=== PATIENT | female | born 1960 | race Caucasian/White ===

== ENCOUNTER 2018-06-15 16:50 | Observation (INO) ==
[2018-06-15] MEDS ORDERED: Ipratropium/Albuterol Neb 3 ML IH ONE (17:09)
[2018-06-15] MEDS ORDERED: Albuterol 2.5 MG/3 ML NEBULIZER IH ONE (17:09)
--- NOTE | 2018-06-15 17:18 | Emergency Department Note ---
Disposition Clinical Impression: Hepatitis A Qualifiers: Hepatic coma status: without hepatic coma Qualified Code(s): B15.9 - Hepatitis A without hepatic coma Disposition: Admitted As Inpatient Condition: Good Referrals: Lexi Tan CNP [Primary Care Provider] - Forms: ED Satisfaction Letter Time of Disposition: 00:09 General Adult HPI - General Chief complaint: ED Shortness of Breath/Dyspnea Stated complaint: CP/SOB Time Seen by Provider: 06/15/18 16:56 Source: patient Mode of arrival: ambulatory Limitations: no limitations - History of Present Illness HPI Narrative: This is a 57-year-old obese female who comes to the emergency department reporting shortness of breath and dyspnea on exertion that has been present for 7 days. She reports a cough with posttussive emesis for this time as well. In addition, she reports epigastric pain is aggravated by food. She states she has had a greatly increased thirst these last 7 days, but denies frequent urination. She is diabetic as well as pills. Pain Scale: 4 - Related Data Home Medications Medication Instructions Recorded Confirmed Atenolol [Tenormin] 50 mg PO DAILY 10/27/17 06/15/18 Insulin Degludec [Tresiba 50 - 70 unit SQ HS 10/27/17 06/15/18 Flextouch U-100] Levothyroxine [Synthroid] 150 mcg PO DAILY 10/27/17 06/15/18 Lisinopril [Zestril] 40 mg PO DAILY 10/27/17 06/15/18 Metformin HCl [Metformin HCl ER] 1,000 mg PO DAILY 10/27/17 06/15/18 Mv-Mn/FA/Vit K/Lycop/Lut/Coq10 1 tab PO DAILY 10/27/17 06/15/18 [Daily Multivitamin Capsule] Omeprazole [PriLOSEC] 20 mg PO DAILY 10/27/17 06/15/18 Furosemide [Lasix] 40 mg PO DAILY PRN 06/15/18 06/15/18 Gabapentin [Neurontin] 300 mg PO TID 06/15/18 06/15/18 Potassium Chloride [K-Tab ER] 10 meq PO DAILY PRN 06/15/18 06/15/18 Allergies Allergy/AdvReac Type Severity Reaction Status Date / Time Amoxicillin Allergy Hives Verified 06/15/18 20:37 morphine Allergy Vomiting Verified 06/15/18 20:37 All systems ED: reviewed and negative except as stated. Cardiovascular: Reports: dyspnea on exertion Respiratory: Reports: dyspnea Gastrointestinal: Reports: abdominal pain, nausea, vomiting, other (Posttussive emesis) Past Medical History - Past Medical History Medical history: Reports: diabetes, GERD, hypertension, thyroid disease Surgical history: Reports: cholecystectomy, orthopedic, other, other Psychiatric history: Reports: no psych history - Social History Smoking Status: Never smoker Smokeless Tobacco Status: No Alcohol use: Reports: none Drug use: Reports: none Physical Exam - General Limitations: no limitations General appearance: alert, in distress (In mild distress shortness of breath) - Head Head exam: atraumatic, normocephalic, normal inspection - Eye Eye exam: Present: normal appearance, PERRL, EOMI - Chest Chest inspection: Present: normal inspection, symmetric chest wall rise - Respiratory Respiratory exam: Present: normal lung sounds bilaterally, respiratory distress (Mild restrictive distress). Absent: wheezes, stridor - Cardiovascular Cardiovascular exam: Present: regular rate, normal rhythm, normal heart sounds - Abdominal Exam Abdominal exam: Present: soft, tenderness Abdominal tenderness: Present: RUQ, epigastrium, mild. Absent: RLQ, LUQ, LLQ - Extremities Exam Extremities exam: Present: normal inspection, tenderness (Diffuse mild tenderness), pedal edema (Nonpitting bilateral pedal edema) - Neurological Exam Neurological exam: Present: alert, oriented X3, CN II-XII intact. Absent: motor sensory deficit - Psychiatric Psychiatric exam: Present: normal affect, normal mood - Skin Skin exam: Present: warm, dry, intact, normal color Course Course Narrative: This is a 57-year-old female with dyspnea on exertion and dyspnea at rest present for the last 7 days. She denies chronic lung disease, and this is concerning for acute coronary syndrome or pulmonary embolism. Vital Signs Temperature 98.1 F 06/15/18 16:51 Pulse Rate 61 06/15/18 16:51 Respiratory Rate 20 06/15/18 16:51 Blood Pressure 170/84 06/15/18 16:51 O2 Sat by Pulse Oximetry 95 06/15/18 16:51 Temperature 98.1 F 06/15/18 16:51 Pulse Rate 65 06/15/18 23:25 Respiratory Rate 16 06/15/18 23:25 Blood Pressure 167/80 06/15/18 23:25 O2 Sat by Pulse Oximetry 98 06/15/18 23:25 Oxygen Delivery Oxygen Delivery Nasal Cannula Medical Decision Making - MDM Narrative Medical decision making narrative: This is a 57-year-old female with hepatitis. I discussed her case with the on- call hospitalist, who accepted her for admission - Lab Data Lab results reviewed: Yes I reviewed the patient's lab results. Lab results narrative: CBC shows leukopenia at 3.8 BMP showed creatinine elevated at 1.5 to Lactic acid was elevated at 2.4 LFT showed total bilirubin elevated at 4.2, direct bilirubin elevated at 3.1, AST elevated at 744, ALT elevated at 500, alkaline phosphatase elevated at 759 Lactate was elevated at 2.7 D-dimer was elevated at 1735 Hepatitis A was positive Hepatitis C was negative I discussed her case with the hospitalist, who asked that the hepatic function panel be repeated, and repeat values were very similar to the initial ones listed above. Result diagrams: 06/15/18 17:19 06/15/18 17:19 Lab Results 06/15/18 06/15/18 06/15/18 Range/Units 17:19 17:19 17:19 WBC 3.8 L (4.3-11.1) K/mcL RBC 5.04 H (3.82-4.97) M/mcL Hgb 13.9 (11.5-15.4) g/dL Hct 43.6 (35.3-44.9) % MCV 86.5 (83.0-100.0) fL MCH 27.6 L (28.0-33.3) pg MCHC 31.9 (31.6-35.5) g/dL RDW 13.3 (11.5-14.5) % Plt Count 185 (140-400) K/mcL MPV 10.4 (9.4-12.4) fL Immature Gran % 1.1 (0-4) % Seg Neutrophils % 45.4 % Lymphocytes % 43.4 % Monocytes % 8.2 % Eosinophils % 1.1 % Basophils % 0.8 % Neutrophils # 1.7 (1.6-8.9) K/mcL Lymphocytes # 1.7 (0.6-4.6) K/mcL Monocytes # 0.3 (0.0-1.3) K/mcL Eosinophils # 0.0 (0.0-0.6) K/mcL Basophils # 0.0 (0.0-0.2) K/mcL Reactive Lymphocytes Present A (Not Present) Platelet Estimate Normal (Normal) D-Dimer 1735 H (0-500) ng/mLFEU Sodium 133 L (136-145) mEq/L Potassium 4.1 (3.5-5.1) mEq/L Chloride 98 (98-107) mEq/L Carbon Dioxide 22 L (23-29) mEq/L BUN 16 (6-20) mg/dL Creatinine 1.52 H (0.60-1.20) mg/dL Est GFR ( Amer) 43 L (> 60) Est GFR (Non-Af Amer) 35 L (> 60) BUN/Creatinine Ratio 11 (6-26) Glucose 406 H (70-105) mg/dL Calculated Osmolality 294 (280-300) Lactic Acid (0.5-2.2) mmol/L Calcium 6.9 L (8.6-10.3) mg/dL Total Bilirubin (0.3-1.0) mg/dL Direct Bilirubin (0.0-0.2) mg/dL Indirect Bilirubin (0.0-1.2) mg/dL AST (13-39) Units/L ALT (7-52) Units/L Alkaline Phosphatase (34-104) Units/L Troponin I < 0.03 (< 0.04) ng/mL Serum Total Protein (6.4-8.9) g/dL Albumin (3.5-5.7) g/dL Globulin (2.4-3.5) g/dL Albumin/Globulin Ratio (1.1-2.2) Lipase (11-82) Units/L Hepatitis A IgM Ab (Nonreactive) Hep Bs Antigen (Nonreactive) Hep B Core IgM Ab (Nonreactive) Hepatitis C Ab Screen (Nonreactive) 06/15/18 06/15/18 06/15/18 Range/Units 17:19 17:19 17:19 WBC (4.3-11.1) K/mcL RBC (3.82-4.97) M/mcL Hgb (11.5-15.4) g/dL Hct (35.3-44.9) % MCV (83.0-100.0) fL MCH (28.0-33.3) pg MCHC (31.6-35.5) g/dL RDW (11.5-14.5) % Plt Count (140-400) K/mcL MPV (9.4-12.4) fL Immature Gran % (0-4) % Seg Neutrophils % % Lymphocytes % % Monocytes % % Eosinophils % % Basophils % % Neutrophils # (1.6-8.9) K/mcL Lymphocytes # (0.6-4.6) K/mcL Monocytes # (0.0-1.3) K/mcL Eosinophils # (0.0-0.6) K/mcL Basophils # (0.0-0.2) K/mcL Reactive Lymphocytes (Not Present) Platelet Estimate (Normal) D-Dimer (0-500) ng/mLFEU Sodium (136-145) mEq/L Potassium (3.5-5.1) mEq/L Chloride (98-107) mEq/L Carbon Dioxide (23-29) mEq/L BUN (6-20) mg/dL Creatinine (0.60-1.20) mg/dL Est GFR ( Amer) (> 60) Est GFR (Non-Af Amer) (> 60) BUN/Creatinine Ratio (6-26) Glucose (70-105) mg/dL Calculated Osmolality (280-300) Lactic Acid 2.7 H (0.5-2.2) mmol/L Calcium (8.6-10.3) mg/dL Total Bilirubin 4.2 H (0.3-1.0) mg/dL Direct Bilirubin 3.1 H (0.0-0.2) mg/dL Indirect Bilirubin 1.1 (0.0-1.2) mg/dL AST 744 H (13-39) Units/L ALT > 500 H (7-52) Units/L Alkaline Phosphatase 759 H (34-104) Units/L Troponin I (< 0.04) ng/mL Serum Total Protein 6.9 (6.4-8.9) g/dL Albumin 3.4 L (3.5-5.7) g/dL Globulin 3.5 (2.4-3.5) g/dL Albumin/Globulin Ratio 1.0 L (1.1-2.2) Lipase 50 (11-82) Units/L Hepatitis A IgM Ab Reactive H (Nonreactive) Hep Bs Antigen Nonreactive (Nonreactive) Hep B Core IgM Ab Nonreactive (Nonreactive) Hepatitis C Ab Screen Nonreactive (Nonreactive) 06/15/18 06/15/18 06/15/18 Range/Units 19:07 22:15 22:15 WBC (4.3-11.1) K/mcL RBC (3.82-4.97) M/mcL Hgb (11.5-15.4) g/dL Hct (35.3-44.9) % MCV (83.0-100.0) fL MCH (28.0-33.3) pg MCHC (31.6-35.5) g/dL RDW (11.5-14.5) % Plt Count (140-400) K/mcL MPV (9.4-12.4) fL Immature Gran % (0-4) % Seg Neutrophils % % Lymphocytes % % Monocytes % % Eosinophils % % Basophils % % Neutrophils # (1.6-8.9) K/mcL Lymphocytes # (0.6-4.6) K/mcL Monocytes # (0.0-1.3) K/mcL Eosinophils # (0.0-0.6) K/mcL Basophils # (0.0-0.2) K/mcL Reactive Lymphocytes (Not Present) Platelet Estimate (Normal) D-Dimer (0-500) ng/mLFEU Sodium (136-145) mEq/L Potassium (3.5-5.1) mEq/L Chloride (98-107) mEq/L Carbon Dioxide (23-29) mEq/L BUN (6-20) mg/dL Creatinine (0.60-1.20) mg/dL Est GFR ( Amer) (> 60) Est GFR (Non-Af Amer) (> 60) BUN/Creatinine Ratio (6-26) Glucose (70-105) mg/dL Calculated Osmolality (280-300) Lactic Acid 2.4 H 1.8 (0.5-2.2) mmol/L Calcium (8.6-10.3) mg/dL Total Bilirubin 3.8 H (0.3-1.0) mg/dL Direct Bilirubin 2.7 H (0.0-0.2) mg/dL Indirect Bilirubin 1.1 (0.0-1.2) mg/dL AST 582 H (13-39) Units/L ALT > 500 H (7-52) Units/L Alkaline Phosphatase 637 H (34-104) Units/L Troponin I (< 0.04) ng/mL Serum Total Protein 5.8 L (6.4-8.9) g/dL Albumin 3.0 L (3.5-5.7) g/dL Globulin 2.8 (2.4-3.5) g/dL Albumin/Globulin Ratio 1.1 (1.1-2.2) Lipase (11-82) Units/L Hepatitis A IgM Ab (Nonreactive) Hep Bs Antigen (Nonreactive) Hep B Core IgM Ab (Nonreactive) Hepatitis C Ab Screen (Nonreactive) - Radiology Data Radiology results reviewed: Yes I reviewed the patient's radiology results. Chest x-ray showed no acute process CTPA shows no evidence of home and I embolism or acute pulmonary pathology. - EKG Data EKG #1 EKG attestation: Yes I reviewed and interpreted this EKG. EKG results narrative: ECG shows sinus rhythm, 58 bpm, left axis deviation, normal intervals, no ST or T-wave abnormalities, similar to prior dated 04/22/2017 Critical Care Time Critical Care Time: No
[2018-06-15 17:34] LABS: Basophils % 0.8 %; Eosinophils % 1.1 %; Hematocrit 43.6 % (35.3-44.9); Hemoglobin 13.9 g/dL (11.5-15.4); Immature Granulocytes % 1.1 % (0-4); Lymphocytes # 1.7 K/mcL (0.6-4.6); Lymphocytes % 43.4 %; Mean Corpuscular HGB Conc 31.9 g/dL (31.6-35.5); Mean Corpuscular Hemoglobin 27.6 pg (28.0-33.3); Mean Corpuscular Volume 86.5 fL (83.0-100.0); Mean Platelet Volume 10.4 fL (9.4-12.4); Monocytes # 0.3 K/mcL (0.0-1.3); Monocytes % 8.2 %; Neutrophils # 1.7 K/mcL (1.6-8.9); Platelet Count 185 K/mcL (140-400); Red Blood Count 5.04 M/mcL (3.82-4.97); Red Cell Distribution Width 13.3 % (11.5-14.5); Segmented Neutrophils % 45.4 %
[2018-06-15] MEDS ORDERED: Isovue-370 500 ML INFUS..BTL IV ONE (17:59)
[2018-06-15 18:02] LABS: Troponin I < 0.03 ng/mL (< 0.04)
[2018-06-15 18:04] LABS: Platelet Estimate Normal (Normal); Reactive Lymphocytes Present (Not Present)
[2018-06-15 18:09] LABS: Alanine Aminotransferase > 500 Units/L (7-52); Albumin 3.4 g/dL (3.5-5.7); Alkaline Phosphatase 759 Units/L (34-104); Aspartate Amino Transferase 744 Units/L (13-39); Bilirubin,Direct 3.1 mg/dL (0.0-0.2); Bilirubin,Indirect 1.1 mg/dL (0.0-1.2); Bilirubin,Total 4.2 mg/dL (0.3-1.0); Globulin 3.5 g/dL (2.4-3.5); Lipase 50 Units/L (11-82); Total Protein 6.9 g/dL (6.4-8.9)
[2018-06-15 18:12] LABS: BUN/Creatinine Ratio 11 (6-26); Blood Urea Nitrogen 16 mg/dL (6-20); Calcium 6.9 mg/dL (8.6-10.3); Carbon Dioxide 22 mEq/L (23-29); Chloride 98 mEq/L (98-107); Glucose 406 mg/dL (70-105); Osmolality,Calculated 294 (280-300); Potassium 4.1 mEq/L (3.5-5.1); Sodium 133 mEq/L (136-145); eGFR For Non-African Americans 35 (> 60)
[2018-06-15] MEDS ORDERED: 0.9 % Sodium Chloride 1,000 ML IVC ONE (18:27)
[2018-06-15] MEDS ORDERED: 0.9 % Sodium Chloride 1,000 ML IVC SCH (20:30)
[2018-06-15 21:43] LABS: Hepatitis B Core IgM Nonreactive (Nonreactive); Hepatitis B Surface Antigen Nonreactive (Nonreactive); Hepatitis C Virus Antibody Nonreactive (Nonreactive)
[2018-06-15 21:55] LABS: Hepatitis A Antibody IgM Reactive (Nonreactive)
[2018-06-15 23:07] LABS: Alanine Aminotransferase > 500 Units/L (7-52); Albumin/Globulin Ratio 1.1 (1.1-2.2); Alkaline Phosphatase 637 Units/L (34-104); Aspartate Amino Transferase 582 Units/L (13-39); Bilirubin,Direct 2.7 mg/dL (0.0-0.2); Bilirubin,Indirect 1.1 mg/dL (0.0-1.2); Bilirubin,Total 3.8 mg/dL (0.3-1.0); Globulin 2.8 g/dL (2.4-3.5); Total Protein 5.8 g/dL (6.4-8.9)
[2018-06-16] MEDS ORDERED: Ondansetron 4 MG/2 ML VIAL IVP PRN (00:26)
[2018-06-16] MEDS ORDERED: Naloxone 0.4 MG/ML INJ IVP PRN (00:26)
[2018-06-16] MEDS ORDERED: D5% in Water 1,000 ML IVC PRN (00:31)
[2018-06-16] MEDS ORDERED: *HR* Dextrose 50 % in Water (Syg) 50 ML SYRINGE IVP PRN (00:31)
[2018-06-16] MEDS ORDERED: Dextrose Gel 15 GM/37.5 ML TUBE PO PRN ×2 (00:31)
[2018-06-16] MEDS: Ringers Solution, Lactated 1,000 ML IVC SCH ×2 (02:28→10:44)
--- NOTE | 2018-06-16 02:33 | Internal Med History&Physical ---
<Kam Brumfield - Last Filed: 06/16/18 03:18> Date of Encounter: 06/16/18 Time of Encounter: 02:15 Internal Medicine - H&P: HPI Chief complaint: Shortness of breath, dyspnea on exertion Admitted From: Emergency Dept Plans for Post Hospital Care: Home History of present illness: Ms. Otero is a 57 year old female with history of diabetes, hypertension, fatty liver, cholecystectomy in 2006, thyroidectomy in 2011 presents to [facility] with complaint of abdominal pain, shortness of breath and a feeling of lightheadedness and presyncope for approximately 1 week duration. She says that for the past week she has been feeling short of breath, and has a feeling like she is going to pass out whenever she moves around. This is been associated with intense abdominal pain in the right upper quadrant and nausea and vomiting for about 1 week. This was insidious in onset, but she feels as though it is been getting worse. She says that overall she feels off balance, especially when she stands up. She has not lost consciousness, but she feels as though she may. It is associated as well with a blurriness in her vision, although she denies any spinning in the room. She says that one time she did have similar symptoms at which time she thought she had a stroke and was taken to [facility], however at that time she was told it was not a stroke but instead was "tonsils" in the back of her head. She says that in this past week she has had some issues with confusion as well, however it is intermittent in nature. She says that overall nothing seems to help this, however food does seem to make it worse. She has no appetite in general, however when she eats it makes her abdomen hurt worse and she typically has in increased urge to vomit. Additionally, she has had some feelings of fever, and some chills. She is not taking anything for this. She denies any chest pains, rashes, increased bleeding. She admits that her son was recently hospitalized approximately 3 weeks ago with acute hepatitis A, B, C. She has no other acute complaints. The patient denies alcohol use, mentioning that she did use to struggle with alcohol abuse but has not had any alcohol in 8 months. She denies smoking however does mention occasional use of marijuana. Denies IV drug use. Past Med Surg Social Fam HX - Past Medical History Medical history: diabetes, GERD, hypertension, thyroid disease Psychiatric history: no psych history - Past Surgical History Surgical History: cholecystectomy, orthopedic, other, other Additional surgical history: thyroidectomy - Social History Smoking Status: Never smoker Smokeless Tobacco Status: No Alcohol use: none Drug use: none Internal Medicine - H&P: Meds Atenolol [Tenormin] 50 mg PO DAILY 10/27/17 [History] Insulin Degludec [Tresiba Flextouch U-100] 50 - 70 unit SQ HS 10/27/17 [History] Levothyroxine [Synthroid] 150 mcg PO DAILY 10/27/17 [History] Lisinopril [Zestril] 40 mg PO DAILY 10/27/17 [History] Metformin HCl [Metformin HCl ER] 1,000 mg PO DAILY 10/27/17 [History] Mv-Mn/FA/Vit K/Lycop/Lut/Coq10 [Daily Multivitamin Capsule] 1 tab PO DAILY 10/27 [History] Omeprazole [PriLOSEC] 20 mg PO DAILY 10/27/17 [History] Furosemide [Lasix] 40 mg PO DAILY PRN 06/15/18 [History] Gabapentin [Neurontin] 300 mg PO TID 06/15/18 [History] Potassium Chloride [K-Tab ER] 10 meq PO DAILY PRN 06/15/18 [History] 3 Allergy/AdvReac Type Severity Reaction Status Date / Time Amoxicillin Allergy Hives Verified 06/15/18 20:37 morphine Allergy Vomiting Verified 06/15/18 20:37 All Systems PM: A 10-system review of systems was performed and is negative for pertinent findings except as documented above in the HPI. Review of systems: Constitutional: Denies fevers, chills, weight loss, generalized fatigue Head/Neck: Denies TOMPKINS, neck stiffness EENT: Admits to Visual changes/blurring. Denies rhinorrhea, congestion, sore throat CVS: Admits to NARAYAN. Denies chest pain, palpitations, orthopnea, edema, PND Pulm: Denies SOB, cough, sputum, hemoptysis, wheezing GI: Admits to abdominal pain in the RUQ, nausea and vomiting. : Denies dysuria, increased frequency, urgency, hematuria Heme: Denies ease of bleeding or bruising MSK: Denies joint pain, limited ROM Skin: Denies rashes, ulcers, color changes Neuro: Admits to headache, confusion, loss of balance - Constitutional Vitals: Temp Pulse Resp BP Pulse Ox 98.1 F 63 14 176/100 99 06/16/18 01:05 06/16/18 01:05 06/16/18 01:05 06/16/18 01:05 06/16/18 01:05 Exam: Gen: Vitals noted. No acute distress. HEENT: Normocephalic, atraumatic. No scleral icterus Neck: Supple. No adenopathy. Cardiac: RRR, no murmur, +S1/S2 Pulmonary: CTA bilaterally, no wheezes, rales or rhonchi, equal chest expansion Abdomen: soft, diffusely tender to palpation in the upper abdomen, most tender in the right upper quadrant, no guarding Back: Nontender throughout. MSK: ROM intact, no joint swelling noted Extremities: no BLE edema, bilaterally lower extremities are tender to palpation , no cyanosis or clubbing Neuro: moves all extremities, no focal deficits. A&Ox3 Psych: Appropriate mood and behavior Internal Med - H&P Results - Labs CBC & Chem 7: 06/15/18 17:19 06/15/18 17:19 - Assessment and plan (1) Hepatitis A Current Visit: Yes Status: Acute Assessment and plan: Acute hepatitis, positive viral hep A serology Patient presents with abdominal pain, nausea, vomiting On presentation, AST 744, AST greater than 500, alkaline phosphatase 759 Patient also has elevated total bilirubin 4.2, direct bilirubin 3.1 She has recent history of sun who has acute hepatitis A infection 3 weeks ago at home Suspect that her abdominal pain is secondary to this infection Liver ultrasound demonstrates diffuse fatty infiltration but is otherwise unremarkable I will check for ammonia, PT INR. IV fluids GI consult in the morning Continue to monitor Qualifiers: Hepatic coma status: without hepatic coma Qualified Code(s): B15.9 - Hepatitis A without hepatic coma (2) Pre-syncope Current Visit: Yes Status: Acute Assessment and plan: Presyncope per patient history The patient denies any chest pain, palpitations. EKG is essentially normal History is most consistent with hepatic encephalopathy She does report prior history of possible Chiari malformation however at [facility] She reports visual changes and confusion as well as loss of balance Given this history of neural abnormality on imaging, I will CT of the head Cardiac monitoring If ct is negative, consider echocardiogram and carotid dopplers (3) Encephalopathy Current Visit: Yes Status: Acute Assessment and plan: Encephalopathy, likely hepatic Patient reports confusion, loss of balance, visual changes This is likely secondary to acute hepatitis We will check a patient's ammonia level Stat head CT (4) Diabetes Current Visit: Yes Status: Acute Assessment and plan: Diabetes mellitus type 2 with hyperglycemia Appears to be poorly controlled despite long-term insulin use We will hold oral glycemic agents Sliding scale insulin Qualifiers: Diabetes mellitus type: type 2 Diabetes mellitus group home insulin use: with wood panel inspector use Diabetes mellitus complication status: with hyperglycemia Qualified Code(s): E11.65 - Type 2 diabetes mellitus with hyperglycemia; Z79.4 - prison (current) use of insulin (5) Hypertension Current Visit: Yes Status: Acute Assessment and plan: Hypertension, poorly controlled Hold lisinopril due to CESAR Add hydralazine prn Qualifiers: Hypertension type: essential hypertension Qualified Code(s): I10 - Essential (primary) hypertension (6) Hypothyroidism Current Visit: Yes Status: Acute Assessment and plan: Continue home meds Qualifiers: Hypothyroidism type: acquired Qualified Code(s): E03.9 - Hypothyroidism, unspecified (7) DVT prophylaxis Current Visit: Yes Status: Acute Assessment and plan: SQ Heparin (8) CESAR (acute kidney injury) Current Visit: Yes Status: Acute Assessment and plan: Acute kidney injury, serum creatinine 1.5 Likely secondary to decreased oral intake and this association with increased vomiting - Time Spent With Patient Total time spent is greater than 50% in coordination of care (as documented) at patient's floor/unit and/or counseling patient: <Wiliam Huitron - Last Filed: 06/16/18 06:54> Date of Encounter: 06/16/18 Time of Encounter: 05:15 - Constitutional Constitutional: no chills, no fever(s) - EENT Eyes: no change in vision Ears: no ear pain, no tinnitus Nose, mouth and throat: no sore throat - Cardiovascular Cardiovascular ROS IM: lightheadedness, no chest pain, no dyspnea, no palpitations, no paroxysmal nocturnal dyspnea, no syncope - Respiratory Respiratory: no hemoptysis, no chest congestion, no excessive phlegm production , no change in phlegm color - Gastrointestinal Gastrointestinal: abdominal pain, diarrhea, nausea, no hematemesis, no hematochezia, no melena, no vomiting - Genitourinary Genitourinary: no dysuria, no flank pain, no hematuria - Musculoskeletal Musculoskeletal ROS IM: no arthralgias, no back pain - Integumentary Integumentary IM: jaundice, no rash - Neurological Neurological ROS: no disequilibrium, no dizziness, no focal weakness, no frequent falls, no headache(s) - Psychiatric Psychiatric: no anxiety, no depression - Endocrine Endocrine IM: no polydipsia, no polyuria - Constitutional Vitals: Temp Pulse Resp BP Pulse Ox 98.5 F 56 15 157/81 97 06/16/18 06:35 06/16/18 06:35 06/16/18 06:35 06/16/18 06:35 06/16/18 06:35 General appearance: Present: cooperative, mild distress, A&O X 3, pleasant, answers questions appropriately - Head Head exam: Present: normal inspection - Eye Eye exam: Present: EOMI, PERRL, scleral icterus Pupils: Present: normal accommodation - ENT ENT exam: Present: mucous membranes dry, normal exam - Neck Neck exam general surgery: Present: supple - Respiratory Respiratory exam: Present: CTAB. Absent: chest wall tenderness, rales, rhonchi , wheezes - Cardiovascular Cardiovascular exam: Present: RRR, +S1, +S2 - GI/Abdominal GI/Abdominal exam: Present: normal bowel sounds, tenderness (RUQ). Absent: guarding, mass, rebound - Back Exam Back exam: Absent: CVA tenderness (L), CVA tenderness (R) - Neurological Exam Neurological exam: Present: alert, CN II-XII intact, oriented X3, no focal deficits Internal Med - H&P Results - Labs CBC & Chem 7: 06/16/18 05:44 06/16/18 05:44 Labs: Short CBC 06/16/18 Range/Units 05:44 WBC 3.5 L (4.3-11.1) K/mcL Hgb 12.0 D (11.5-15.4) g/dL Hct 36.6 (35.3-44.9) % Plt Count 158 (140-400) K/mcL Neutrophils # 1.6 (1.6-8.9) K/mcL BMP 06/16/18 05:44 Sodium 136 Potassium 3.5 Chloride 102 Carbon Dioxide 24 BUN 13 Creatinine 1.18 Glucose 237 H Calcium 6.2 L Liver Function 06/16/18 Range/Units 05:44 GGT 276 H (1-24) Units/L - Impressions ITS Impressions Head CT 06/16/18 03:18 IMPRESSION: No acute intracranial abnormality. D/ / Brent Obregon / Brent Obregon Interpreting Provider: Brent Obregon - Assessment and plan (1) Hepatitis A Current Visit: Yes Status: Acute Qualifiers: Hepatic coma status: without hepatic coma Qualified Code(s): B15.9 - Hepatitis A without hepatic coma (2) Hypertension Current Visit: Yes Status: Acute Qualifiers: Hypertension type: essential hypertension Qualified Code(s): I10 - Essential (primary) hypertension (3) Diabetes Current Visit: Yes Status: Acute Qualifiers: Diabetes mellitus type: type 2 Diabetes mellitus wood panel inspector insulin use: with group home use Diabetes mellitus complication status: with hyperglycemia Qualified Code(s): E11.65 - Type 2 diabetes mellitus with hyperglycemia; Z79.4 - resolution manager (current) use of insulin (4) Hypothyroidism Current Visit: Yes Status: Acute Qualifiers: Hypothyroidism type: acquired Qualified Code(s): E03.9 - Hypothyroidism, unspecified (5) DVT prophylaxis Current Visit: Yes Status: Acute (6) Pre-syncope Current Visit: Yes Status: Acute (7) Encephalopathy Current Visit: Yes Status: Acute (8) CESAR (acute kidney injury) Current Visit: Yes Status: Acute - Time Spent With Patient Total time spent is greater than 50% in coordination of care (as documented) at patient's floor/unit and/or counseling patient: - Attending Attestation I discussed the patient RINCON, past medical history, review of systems, lab data , and exam findings with Dr. Brumfield. I then saw and examined patient independently. She confirms exposure to her son who was recently diagnosed with hepatitis A, B, and C. He was also was recently hospitalized for hepatitis. He now presents with a several day history of abdominal pain, jaundice skin, and some nausea and diarrhea. She denies any fevers or chills. Appetite and fluid intake have diminished. She does have a history of alcohol abuse in the past but she has not had any alcohol intake in over 8 months. I reviewed her labs and examined her. Clinically, she presented with acute hepatitis, most likely from hepatitis A. We will proceed with conservative measures and monitor clinically. Additionally, we will consult GI for further evaluation as well. Regarding her presyncopal symptoms, I agree with the CAT scan of the head. If it is negative, she will need further workup including echo and carotid Dopplers. Other than my comments above and noted physical exam findings, I agree with Dr. Brumfield's assessment and plan.
[2018-06-16 06:03] LABS: Basophils % 0.9 %; Eosinophils # 0.1 K/mcL (0.0-0.6); Eosinophils % 1.4 %; Hematocrit 36.6 % (35.3-44.9); Immature Granulocytes % 0.6 % (0-4); Lymphocytes # 1.5 K/mcL (0.6-4.6); Lymphocytes % 43.1 %; Mean Corpuscular HGB Conc 32.8 g/dL (31.6-35.5); Mean Corpuscular Hemoglobin 27.8 pg (28.0-33.3); Mean Corpuscular Volume 84.7 fL (83.0-100.0); Mean Platelet Volume 10.2 fL (9.4-12.4); Monocytes # 0.3 K/mcL (0.0-1.3); Monocytes % 8.3 %; Neutrophils # 1.6 K/mcL (1.6-8.9); Platelet Count 158 K/mcL (140-400); Red Blood Count 4.32 M/mcL (3.82-4.97); Red Cell Distribution Width 13.5 % (11.5-14.5); Segmented Neutrophils % 45.7 %
[2018-06-16 06:19] LABS: INR 1.2
[2018-06-16 06:22] LABS: BUN/Creatinine Ratio 11 (6-26); Blood Urea Nitrogen 13 mg/dL (6-20); Calcium 6.2 mg/dL (8.6-10.3); Carbon Dioxide 24 mEq/L (23-29); Chloride 102 mEq/L (98-107); Gamma Glutamyl Transpeptidase 276 Units/L (1-24); Glucose 237 mg/dL (70-105); Magnesium 1.2 mg/dL (1.6-2.6); Osmolality,Calculated 290 (280-300); Potassium 3.5 mEq/L (3.5-5.1); Sodium 136 mEq/L (136-145); eGFR For Non-African Americans 47 (> 60)
[2018-06-16 06:33] LABS: Reactive Lymphocytes Present (Not Present)
[2018-06-16] MEDS: Insulin LISPRO 300 UNITS/3 ML VIAL SQ SCH ×3 (06:51→18:33)
[2018-06-16] MEDS: *HR* Heparin 5,000 UNIT/ML VIAL SQ SCH ×3 (06:52→22:10)
[2018-06-16 07:13] LABS: Alanine Aminotransferase > 500 Units/L (7-52); Albumin 2.9 g/dL (3.5-5.7); Albumin/Globulin Ratio 1.1 (1.1-2.2); Alkaline Phosphatase 594 Units/L (34-104); Aspartate Amino Transferase 493 Units/L (13-39); Bilirubin,Direct 2.9 mg/dL (0.0-0.2); Bilirubin,Total 3.9 mg/dL (0.3-1.0); Globulin 2.6 g/dL (2.4-3.5); Total Protein 5.5 g/dL (6.4-8.9)
[2018-06-16 07:35] LABS: Acetaminophen < 10 mcg/mL (10-20); Salicylate < 2.5 mg/dL (15.0-30.0)
[2018-06-16] MEDS: Gabapentin 300 MG CAPSULE PO SCH ×3 (10:44→22:11)
[2018-06-16] MEDS: Lactulose Oral Soln 20 GM/30 ML UDC PO SCH ×3 (10:44→22:14)
--- NOTE | 2018-06-16 11:21 | Gastroenterology Consult Note ---
<Mady Marroquin - Last Filed: 06/16/18 17:40> Date of Encounter: 06/16/18 Time of Encounter: 11:19 - Assessment and plan (1) Hepatitis A Status: Acute Assessment and plan: Patient has acute hepatitis A infection likely contracted from her son whom was just diagnosed 3 weeks ago with hepatitis A, B, C infection. She reported nausea, vomiting, weakness, fatigue, lightheadedness, pruritus, skin discoloration, right upper quadrant pain. Denied fever, chills, scleral icterus, jaundice. Hepatitis A positive PT 13, INR 1.2 total bilirubin 3.9, direct bilirubin 2.9 AST 493, ALT >500 alkaline phosphatase 594 albumin 2.9 liver ultrasound demonstrated fatty liver Plan: supportive treatment. Patient is improved from admission however still has dizziness. Tolerating PO intake well. Will reevaluate tomorrow. May possible discharge tomorrow if labs and symptoms improve. Qualifiers: Hepatic coma status: without hepatic coma Qualified Code(s): B15.9 - Hepatitis A without hepatic coma (2) Encephalopathy Status: Acute Assessment and plan: Resolved. The patient reported that she been having dizziness. Ammonia 53. May be due to dehydration and decreased oral intake since feeling unwell. -Will continue to monitor - Time Spent With Patient Total time spent is greater than 50% in coordination of care (as documented) at patient's floor/unit and/or counseling patient: GI History of Present Illness - Data of Consult Consult date: 06/16/18 Requesting Physician: Christina Miller MD - Consult Narrative Reason for consult: Acute hepatitis A History of present illness: Ms. Otero is a 57 year old female with past medical history of hypertension, Gerd, diabetes, fatty liver who presented to [facility] com plaining of abdominal pain and feeling lightheaded. Gastroenterology was consulted due to acute hepatitis A infection. Upon examination the patient reported that for about a week and a half she has been feeling lightheaded, week, dizzy. She also noted right upper quadrant pain that has been chronic for her for about a year but worsened over this week and half. She seduces sharp pain. She has had decreased appetite with nausea and vomiting. She has had puritis with change in skin color, but no jaundice or scleral icterus. Denied fever, chills, melena, hematemesis, hematachezia. She reported that her son was recently diagnosed in the hospital for acute hepatitis A, B, C. She has never had this before. She denies IV drug use however has used marijuana in the past. She is a former alcoholic but has not drink alcohol since 8 months ago. She is to drink 6 to 12 beers a day for about 40 years. Denied smoking history. She had an EGD and 03/04/2018 that showed Redyd's esophagus with a large hiatal hernia. EGD: 03/04/2018 Past Med Surg Social Fam HX - Past Medical History Attestation: Yes The following information was validated with the patient. Source: patient Medical history: diabetes, GERD, hypertension, thyroid disease Psychiatric history: no psych history - Past Surgical History Surgical History: cholecystectomy, orthopedic, other, other Additional surgical history: thyroidectomy - Social History Smoking Status: Never smoker Smokeless Tobacco Status: No Alcohol use: none (Former heavy drinker of 6 to 12 beers a day for 40 years) Drug use: none - Gastrointestinal Gastrointestinal: Present: abdominal pain, heartburn. Absent: diarrhea, hematemesis, hematochezia, melena, nausea, vomiting - Constitutional Constitutional: anorexia, fatigue, no fever(s) - EENT Nose, mouth and throat: Absent: dysphagia, sore throat - Cardiovascular Cardiovascular ROS: Absent: chest pain, palpitations - Respiratory Respiratory IM: Present: dyspnea. Absent: cough - Genitourinary Genitourinary: Present: change in color (dark urine). Absent: Urinary frequency - Neurological ROS Neurological GI: Present: dizziness, weakness. Absent: frequent falls, headache(s) - Musculoskeletal Musculoskeletal ROS GI: Absent: joint swelling - Integumentary Integumentary GI: Present: pruritis. Absent: jaundice, rash - Psychiatric ROS Psychiatric GI: Absent: anxiety - Endocrine Endocrine IM: Present: fatigue. Absent: heat intolerance - Constitutional Vitals: Temp Pulse Resp BP Pulse Ox 97.9 F 64 14 153/95 95 06/16/18 10:05 06/16/18 10:05 06/16/18 10:05 06/16/18 10:05 06/16/18 10:05 Exam: Gen.: Vitals noted. No acute distress. AAOx3 HEENT: oropharynx clear, Normocephalic, atraumatic, no scleral icterus Neck: Supple. No adenopathy. Cardiac: RRR, no murmur, +S1/S2 Pulmonary: CTA bilaterally, no wheezes, rales or rhonchi, equal chest expansion Abdomen: soft, nontender, Bowel sounds noted, no guarding, no jaundice MSK: ROM intact, no joint swelling noted Extremities: + BLE edema, bilateral tender calf, no cyanosis or clubbing Neuro: A&Ox3, moves all extremities, no focal deficits Psych: Appropriate mood and behavior Results - Labs CBC & Chem 7: 06/16/18 05:44 06/16/18 05:44 Labs: Last Result Calcium 6.2 mg/dL (8.6-10.3) L 06/16/18 05:44 Troponin I < 0.03 ng/mL (< 0.04) 06/15/18 17:19 Salicylates < 2.5 mg/dL (15.0-30.0) L 06/15/18 17:19 Entire Visit Hgb 12.0 g/dL (11.5-15.4) D 06/16/18 05:44 Hct 36.6 % (35.3-44.9) 06/16/18 05:44 PT 13.0 Seconds (9.4-12.1) H 06/16/18 05:44 Total Bilirubin 3.9 mg/dL (0.3-1.0) H 06/16/18 05:44 AST 493 Units/L (13-39) H 06/16/18 05:44 ALT > 500 Units/L (7-52) H 06/16/18 05:44 Ammonia 53 mcmol/L (16-53) 06/16/18 05:44 Lipase 50 Units/L (11-82) 06/15/18 17:19 Acetaminophen < 10 mcg/mL (10-20) L 06/15/18 17:19 - ABG ABG results: PT/INR, D-dimer PT 13.0 Seconds (9.4-12.1) H 06/16/18 05:44 D-Dimer 1735 ng/mLFEU (0-500) H 06/15/18 17:19 - Impressions Impressions Head CT 06/16/18 03:18 IMPRESSION: No acute intracranial abnormality. D/ / Brent Obregon / Brent Obregon Interpreting Provider: Brent Obregon Consult Discharge Plan - Plan Referrals: Keisha Silva APN [Advanced Practice Nurse] - 07/01/18 9:40 am Katie Molina MD [Partnered Physician] - (Web request sent on 06/18.) Prescriptions: Alcohol Antiseptic Pads [Alcohol Pads] 1 each TP QIDAC 30 Days #120 med..pad RX: Aspirin 81 mg PO DAILY #30 tab.chew Blood-Glucose Meter, Drum-Type [Accu-Chek] 1 each MC TIDAC #1 kit Calcium Carbonate/Vitamin D3 [Calcium 500 + Vit D Caplet] 1 each PO BID 30 Days #60 tablet Insulin Regular, Human [Novolin R] 0 unit IJ TIDAC 30 Days #10 ml Syrge-Ndl,Ins 0.3 ml Half Dago [Insulin Syringe] 1 each MC TIDAC 30 Days #90 disp.syrin <John Lynch - Last Filed: 06/28/18 22:15> - Time Spent With Patient Total time spent is greater than 50% in coordination of care (as documented) at patient's floor/unit and/or counseling patient: GI History of Present Illness - Data of Consult Requesting Physician: Christina Miller MD - Consult Narrative History of present illness: Ms. Otero is a 57 year old female - Constitutional Vitals: Temp Pulse Resp BP Pulse Ox 98.3 F 54 16 149/81 96 06/18/18 16:04 06/18/18 16:04 06/18/18 16:04 06/18/18 16:04 06/18/18 16:04 Results - Labs CBC & Chem 7: 06/17/18 07:17 06/17/18 07:17 Labs: Last Result Calcium 6.3 mg/dL (8.6-10.3) L 06/18/18 05:39 Troponin I < 0.03 ng/mL (< 0.04) 06/15/18 17:19 Triglycerides 194 mg/dL (< 150) H 06/16/18 11:45 Vitamin B12 > 1500 pg/mL (250-1100) H 06/17/18 07:17 Salicylates < 2.5 mg/dL (15.0-30.0) L 06/15/18 17:19 Entire Visit Hgb 11.5 g/dL (11.5-15.4) 06/17/18 07:17 Hct 36.2 % (35.3-44.9) 06/17/18 07:17 PT 12.0 Seconds (9.4-12.1) 06/18/18 05:39 Total Bilirubin 3.8 mg/dL (0.3-1.0) H 06/18/18 05:39 AST 282 Units/L (13-39) H 06/18/18 05:39 ALT 407 Units/L (7-52) H 06/18/18 05:39 Ammonia 53 mcmol/L (16-53) 06/16/18 05:44 Lipase 50 Units/L (11-82) 06/15/18 17:19 Acetaminophen < 10 mcg/mL (10-20) L 06/15/18 17:19 - ABG ABG results: PT/INR, D-dimer PT 12.0 Seconds (9.4-12.1) 06/18/18 05:39 D-Dimer 1735 ng/mLFEU (0-500) H 06/15/18 17:19 - Attending Attestation Acute hepatitis A uncomplicated. Family contact with same. Plan supportive therapy with follow up in office and trending of transaminases and bilirubin. I examined this patient and my medical decision-making was reviewed with the Resident Physician. I agree with the documented findings, disposition and treatment plan as described except to the extent set forth below.
[2018-06-16 12:27] LABS: Chol/HDL Ratio 14.8 (0-4.9)
[2018-06-16 13:14] LABS: Estimated Average Glucose 318 mg/dl; Hemoglobin A1C 12.7 %
[2018-06-16] MEDS: Aspirin 81 MG TAB.CHEW PO SCH (14:27)
--- NOTE | 2018-06-16 16:10 | Event Note ---
Date of Encounter: 06/16/18 Time of Encounter: 09:00 walter was cruzito lorenz examiend at bedside. she is feeling better now that she has been admitted. does reports unsteady gait and dizziness that has started for the past few days ( cannot specify) She reported that her son was recently diagnosed in the hospital for acute hepatitis A, B, C. She has never had this before. reports alcohol use disorder - but quit 8 months ago. does report using marijuanna in ervin past. She had an EGD and 03/04/2018 that showed Reddy's esophagus with a large hiatal hernia. VSS General: Patient is alert, oriented, no acute distress, morbidly obese Head: atraumatic, normocephalic, Eye: normal appearance, PERRL, no scleral icterus, no conjunctival injection ENT: mucous membranes moist, normal external ear exam Neck: normal inspection, trachea midline, full ROM, no carotid bruits Chest: normal inspection, symmetric chest rise Respiratory: Good respiratory effort. Bilateral breath sounds are clear without wheezing, crackles, or rhonchi. Cardiovascular: Regular rate and rhythm. s1 and s2 No clicks, rubs, gallops, or murmors. Abdomen: Bowel sounds present normoactive x-4 quadrants. Abdomen is soft, no Epigastric tenderness. No guarding or rebound. No organomegaly noted, obese musculoskeletal: Spontaneously moving all extremities. no edema, no calf tenderness Skin: warm, dry, intact. Neuro: Alert and oriented x4. Sensation light touch intact. Cranial nerves 2- 12 is intact. rapid hand movements and finger to nose intact Psych: Patient's affect is normal A/P acute hepatitis A dizziness and presyncope r/o posterior fossa stroke uncontrolled DM A1c 12.7 CT head negative Ammonia WNL CTA chest negative for PE MRI head, carotid dopplers, TTE neurology consulted ASA TSH statins once LFTs have stabilized A1c and lipid panel ordered will follow liver enzymes GI consulted will follow recommendations will follow LFTS and coags PPI will most likely need to be discharged with insulin diabetic teaching DVT prophylaxis with heparin SC
--- NOTE | 2018-06-16 18:58 | Electrocardiograph Report ---
[place] [id number] Test Date: 2018-06-15 Pat Name: Daisy Otero Department: EXAM10 Room: 3A47 Gender: F Foundation Relations Director: : 1960 Requested By: Jasper Velazquez Order Number: [id number] Reading MD: Dharmesh Chaney Measurements Intervals [place] Rate: 58 P: 13 VT: 158 QRS: -37 QRSD: 110 T: 19 QT: 467 QTc: 459 Interpretive Statements Sinus rhythm Left axis deviation Low voltage, precordial leads Poor R wave progression Electronically Signed On 06-16-2018 18:57:27 EDT by Dharmesh Chaney
[2018-06-16] MEDS ORDERED: Insulin DETEMIR 100 UNIT/ML X5UNITS SQ SCH (21:00)
[2018-06-17] MEDS: Ringers Solution, Lactated 1,000 ML IVC SCH ×2 (00:02→10:02)
[2018-06-17] MEDS: Insulin LISPRO 300 UNITS/3 ML VIAL SQ SCH ×4 (05:56→18:58)
[2018-06-17] MEDS: *HR* Heparin 5,000 UNIT/ML VIAL SQ SCH ×3 (06:12→22:10)
[2018-06-17 08:16] LABS: Hematocrit 36.2 % (35.3-44.9); Hemoglobin 11.5 g/dL (11.5-15.4); Mean Corpuscular HGB Conc 31.8 g/dL (31.6-35.5); Mean Corpuscular Hemoglobin 27.5 pg (28.0-33.3); Mean Corpuscular Volume 86.6 fL (83.0-100.0); Mean Platelet Volume 10.4 fL (9.4-12.4); Platelet Count 199 K/mcL (140-400); Prothrombin Time 11.8 Seconds (9.4-12.1); Red Blood Count 4.18 M/mcL (3.82-4.97); Red Cell Distribution Width 13.8 % (11.5-14.5)
[2018-06-17 08:59] LABS: Alanine Aminotransferase > 500 Units/L (7-52); Albumin 2.8 g/dL (3.5-5.7); Alkaline Phosphatase 697 Units/L (34-104); Aspartate Amino Transferase 365 Units/L (13-39); BUN/Creatinine Ratio 8 (6-26); Bilirubin,Total 4.1 mg/dL (0.3-1.0); Blood Urea Nitrogen 9 mg/dL (6-20); Calcium 6.4 mg/dL (8.6-10.3); Carbon Dioxide 28 mEq/L (23-29); Chloride 104 mEq/L (98-107); Globulin 2.7 g/dL (2.4-3.5); Glucose 203 mg/dL (70-105); Osmolality,Calculated 292 (280-300); Potassium 4.2 mEq/L (3.5-5.1); Sodium 139 mEq/L (136-145); Total Protein 5.5 g/dL (6.4-8.9); eGFR For Non-African Americans 52 (> 60)
[2018-06-17] MEDS: Gabapentin 300 MG CAPSULE PO SCH ×3 (09:58→22:10)
[2018-06-17] MEDS: Aspirin 81 MG TAB.CHEW PO SCH (09:58)
[2018-06-17] MEDS: Lactulose Oral Soln 20 GM/30 ML UDC PO SCH ×2 (09:58→22:11)
--- NOTE | 2018-06-17 10:33 | Internal Med Progress Note ---
Hospitalist Progress Note - Encounter Date of Encounter: 06/17/18 Time of Encounter: 08:00 - Subjective Interval History: Patient was seen and examined at bedside She reports that she tolerated diet, denies nausea vomiting diarrhea. Abdominal pain has nearly resolved. Has been walking around her room however does complain of some unsteadiness on her feet. I discussed her A1c level with her and she reports that she is compliant with her diabetic medications however she has missed some doses and is not fully compliant to her diet. She denies fever chills, chest pain, shortness of breath, syncope, loss of consciousness. - Exam Vitals: Temp Pulse Resp BP Pulse Ox 97.8 F 70 16 188/75 95 06/17/18 10:12 06/17/18 10:12 06/17/18 10:12 06/17/18 10:12 06/17/18 10:12 Exam: General: Patient is alert, oriented, no acute distress, morbidly obese Head: atraumatic, normocephalic, Eye: normal appearance, PERRL, no scleral icterus, no conjunctival injection ENT: mucous membranes moist, normal external ear exam Neck: normal inspection, trachea midline, full ROM, no carotid bruits Chest: normal inspection, symmetric chest rise Respiratory: Good respiratory effort. Bilateral breath sounds are clear without wheezing, crackles, or rhonchi. Cardiovascular: Regular rate and rhythm. s1 and s2 No clicks, rubs, gallops, or murmors. Abdomen: Bowel sounds present normoactive x-4 quadrants. Abdomen is soft, no Epigastric tenderness. No guarding or rebound. No organomegaly noted, obese musculoskeletal: Spontaneously moving all extremities. no edema, no calf tenderness Skin: warm, dry, intact. Neuro: Alert and oriented x4. Sensation light touch intact. Cranial nerves 2- 12 is intact. rapid hand movements and finger to nose intact Psych: Patient's affect is normal - Assessment and Plan (1) Hepatitis A Current Visit: Yes Status: Acute Assessment and Plan: Acute hepatitis, positive viral hep A serology- likely contracted from her son whom was just diagnosed 3 weeks ago with hepatitis A, B, C infection. liver ultrasound demonstrated fatty liver transaminitis has trended up ammonia 53 GI on board will continue to trend coags and LFTs will consider MRCP if her LFts continue to trend up (2) Pre-syncope Current Visit: Yes Status: Acute Assessment and Plan: vision changes, dizziness ruled out posterior fossa stroke CT head NAD MRI head- No acute infarct or acute intracranial process identified. echocardiogram and carotid doppler pending neurology consulted will follow recommendations ASA 81 mg daily will consider starting statins once LFTS have stabilized TSH WNL PT consulted (3) Uncontrolled diabetes mellitus Current Visit: Yes Status: Acute Assessment and Plan: A1c is 12.7 was counseled on weight loss, nutrition and importance of compliance to her medications will most likely need to be discharged on her home long acting with sliding scale upon discharge metformin on hold needs close OP follow up (eye check up and renal functions along with A1c) (4) Hypertension Current Visit: Yes Status: Acute Assessment and Plan: restarted home medications of lasix, lisinopril and atenolol Kellie has resolved will continue to monitor renal functions will follow BP and adjust medications accordingly (5) Hypothyroidism Current Visit: Yes Status: Acute Assessment and Plan: TSH WNL continue synthroid (6) Hypomagnesemia Current Visit: Yes Status: Acute Assessment and Plan: replaced follow level (7) Hypocalcemia Current Visit: Yes Status: Acute Assessment and Plan: corrected calcium for albumin is 7.4 calcium replaced vitamin D, ionized calcium- ordered (8) Encephalopathy Current Visit: Yes Status: Acute Assessment and Plan: resolved ammonia WNL CT heead and MRI - NAD (9) Acute renal failure (ARF) Current Visit: Yes Status: Acute Assessment and Plan: most likely secondary to dehydration and uncontrolled DM has resolved with IVF will continue to monitor renal functions (10) Morbidly obese Current Visit: Yes Status: Acute Assessment and Plan: was counseled on weight loss and nutrition BMI 47.5 (11) DVT prophylaxis Current Visit: Yes Status: Acute Assessment and Plan: heparin sc - Time Spent with Patient Total time spent is greater than 50% in coordination of care (as documented) at patient's floor/unit and/or counseling patient: Internal Medicine: Result - Labs CBC & Chem 7: 06/17/18 07:17 06/17/18 07:17 Labs: Short CBC 06/17/18 Range/Units 07:17 WBC 3.5 L (4.3-11.1) K/mcL Hgb 11.5 (11.5-15.4) g/dL Hct 36.2 (35.3-44.9) % Plt Count 199 (140-400) K/mcL BMP 06/17/18 07:17 Sodium 139 Potassium 4.2 Chloride 104 Carbon Dioxide 28 BUN 9 Creatinine 1.08 Glucose 203 H Calcium 6.4 L Liver Function 06/17/18 Range/Units 07:17 Total Bilirubin 4.1 H (0.3-1.0) mg/dL AST 365 H (13-39) Units/L ALT > 500 H (7-52) Units/L Alkaline Phosphatase 697 H (34-104) Units/L Albumin 2.8 L (3.5-5.7) g/dL - ABG Interpretation ABG results: PT/INR, D-dimer PT 11.8 Seconds (9.4-12.1) 06/17/18 07:17 D-Dimer 1735 ng/mLFEU (0-500) H 06/15/18 17:19 - Impressions Impressions Brain MRI 06/16/18 11:19 IMPRESSION: No acute infarct or acute intracranial process identified. D/ / Cr Alberts MD / Cr Alberts MD Interpreting Provider: Cr Alberts MD Consult Discharge Plan - Plan Referrals: Lexi Tan, [facility] [Primary Care Provider] - (1) Hepatitis A Qualifiers: Hepatic coma status: without hepatic coma Qualified Code(s): B15.9 - Hepatitis A without hepatic coma (4) Hypertension Qualifiers: Hypertension type: essential hypertension Qualified Code(s): I10 - Essential (primary) hypertension (5) Hypothyroidism Qualifiers: Hypothyroidism type: acquired Qualified Code(s): E03.9 - Hypothyroidism, unspecified
--- NOTE | 2018-06-17 11:20 | Neurology - Consult Note ---
<Carlos Manuel Avila N - Last Filed: 06/17/18 11:25> Date of Encounter: 06/17/18 Time of Encounter: 11:19 Assessment and Plan (1) Pre-syncope Current Visit: Yes Status: Acute 57 year old female with acute hepatitis A who has concurrent symptoms of headache, blurry vision, gait imbalance, and left sided weakness and hypoesthesia. Symptoms have somewhat improved as her headache is not as severe. Examination did reveal minimal decrease in strength of the LUE and LLE; however , patient was able to use the LUE and LLE to lift and reposition herself during examination without difficulty. MRI negative for an acute infarct, a benign tonsillar ectopia of 3mm was noted which is not a significant finding. Patient' s lab showed a normal ammonia level of 53. 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 Less likey hepatic encephalopathy as ammonia levels were normal -ASCVD score is elevated, recommend statin after resolution of the hepatitis A. Recommend daily aspirin and hypertension management.. -Echo and MRI normal, f/u with rest of stroke workup -Follow up with PT evaluation and recommendations -Will reevaluate upon request History of Present Illness Chief complaint: weakness HPI: Ms. Otero is a 57 year old female who was admitted to the hospital for an acute hepatitis A infection. On admission patient was complaining of gait imbalance, confusion, headache, and blurry vision. These symptoms began a few days prior to her admission, but she was unable to quantify the exact number of days. Since admission, her bitemporal headache has improved as it was unbearable early during her illness, but now is only mild; however she still continues to have some difficulty with balance and weakness, stating her weakness is mainly on the left side. She is able to walk on her own but is reportedly unsteady. She also complains today of occasional blurred vision that is unchanged. She is able to read and watch TV from across the room, but states occasionally smaller letters and images become blurry. She also admits to hypoesthesia of the left upper and lower extremities. No prior history of strokes, but she states that she had imaging in [place] performed previously which revealed possible chiari malformation. MRI during this hospital stay was negative for an acute infarct and a benign tonsillar ectopia of only 3mm was noted. She denies any facial sensory or motor changes, speech changes, left sided hypoesthesias or motor symptoms, recent falls, or any history of seizures. She does admit to ongoing RUQ "soreness". Ammonia on admission was normal at 53. 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) Drug use: none Medications and Allergies Atenolol [Tenormin] 50 mg PO DAILY 10/27/17 [History] Insulin Degludec [Tresiba Flextouch U-100] 50 - 70 unit SQ HS 10/27/17 [History] Levothyroxine [Synthroid] 150 mcg PO DAILY 10/27/17 [History] Lisinopril [Zestril] 40 mg PO DAILY 10/27/17 [History] Metformin HCl [Metformin HCl ER] 1,000 mg PO DAILY 10/27/17 [History] Mv-Mn/FA/Vit K/Lycop/Lut/Coq10 [Daily Multivitamin Capsule] 1 tab PO DAILY 10/27 [History] Omeprazole [PriLOSEC] 20 mg PO DAILY 10/27/17 [History] Furosemide [Lasix] 40 mg PO DAILY PRN 06/15/18 [History] Gabapentin [Neurontin] 300 mg PO TID 06/15/18 [History] Potassium Chloride [K-Tab ER] 10 meq PO DAILY PRN 06/15/18 [History] 3 Allergy/AdvReac Type Severity Reaction Status Date / Time Amoxicillin Allergy Hives Verified 06/15/18 20:37 morphine Allergy Vomiting Verified 06/15/18 20:37 All Systems: The remainder of the systems were reviewed and are negative - Constitutional Constitutional ROS IM: as per HPI Physical Examination - Vital Signs Vital Signs: Initial Vital Signs Temp Pulse Resp BP Pulse Ox 98.1 F 61 20 170/84 95 06/15/18 16:51 06/15/18 16:51 06/15/18 16:51 06/15/18 16:51 06/15/18 16:51 - Exam Exam: Constitutional: sitting upright on side of bed, no acute distress Cranial nerves: II-XII grossly intact, no focal neurological deficit Upper Extremities: Sensation overlying the RUE is normal, however complains of diminished sensation of the entire LUE compared to the right. Motor strength of RUE is 5/5, whereas motor strength is 4/5 on examination of the LUE with mildly decreased guest request runner strength. biceps reflexes are 1+ bilaterally. Lower Extremities: Sensation decreased over the LLE compared to the right. Motor strength is 4/5 of the LLE, RLE strength is 5/5. Patellar reflexes 1+ bilaterally. Patient was able to change position independently as she was able to push off bed and floor to reposition herself during reexamination. No unilateral weakness noted when she was repositioning herself. Results - Laboratory Findings CBC and BMP: 06/17/18 07:17 06/17/18 07:17 Abnormal lab findings: Abnormal lab results WBC 3.5 K/mcL (4.3-11.1) L 06/17/18 07:17 MCH 27.5 pg (28.0-33.3) L 06/17/18 07:17 Reactive Lymphocytes Present (Not Present) A 06/16/18 05:44 D-Dimer 1735 ng/mLFEU (0-500) H 06/15/18 17:19 Est GFR (Non-Af Amer) 52 (> 60) L 06/17/18 07:17 Glucose 203 mg/dL (70-105) H 06/17/18 07:17 POC Glucose 185 mg/dL (70-99) H 06/17/18 07:00 Hemoglobin A1c 12.7 % (-5.6) H 06/16/18 11:45 Calcium 6.4 mg/dL (8.6-10.3) L 06/17/18 07:17 Magnesium 1.2 mg/dL (1.6-2.6) L 06/16/18 05:44 Total Bilirubin 4.1 mg/dL (0.3-1.0) H 06/17/18 07:17 Direct Bilirubin 2.9 mg/dL (0.0-0.2) H 06/16/18 05:44 GGT 276 Units/L (1-24) H 06/16/18 05:44 AST 365 Units/L (13-39) H 06/17/18 07:17 ALT > 500 Units/L (7-52) H 06/17/18 07:17 Alkaline Phosphatase 697 Units/L (34-104) H 06/17/18 07:17 Serum Total Protein 5.5 g/dL (6.4-8.9) L 06/17/18 07:17 Albumin 2.8 g/dL (3.5-5.7) L 06/17/18 07:17 Albumin/Globulin Ratio 1.0 (1.1-2.2) L 06/17/18 07:17 Triglycerides 194 mg/dL (< 150) H 06/16/18 11:45 VLDL Cholesterol, Calc 39 mg/dL (< 31) H 06/16/18 11:45 HDL Cholesterol 10 mg/dL (40-59) L 06/16/18 11:45 Cholesterol/HDL Ratio 14.8 (0-4.9) H 06/16/18 11:45 Vitamin B12 > 1500 pg/mL (250-1100) H 06/17/18 07:17 Salicylates < 2.5 mg/dL (15.0-30.0) L 06/15/18 17:19 Acetaminophen < 10 mcg/mL (10-20) L 06/15/18 17:19 Hepatitis A IgM Ab Reactive (Nonreactive) H 06/15/18 17:19 Consult Discharge Plan - Plan Referrals: Lexi Tan, DIAGNOSTIC TECHNOLOGIST [Primary Care Provider] - <Kam Jackson - Last Filed: 06/17/18 16:24> Date of Encounter: 06/17/18 Time of Encounter: 16:13 Assessment and Plan (1) Pre-syncope Current Visit: Yes Status: Acute At this juncture I am inclined to suspect that perhaps the patient's headache and imbalance may have been multifactorial. Her blood pressure has been fairly elevated perhaps her headache and balance difficulty may have been due to uncontrolled hypertension. She denies a history of recurrent headaches and considering the fact that her father of a ruptured cerebral aneurysm we should definitely rule this out. I see no evidence to suspect central nervous system infectious process, acute cerebral infarct has been ruled out as well. I see no physiologic explanation for the left upper and left lower extremity weakness. In any regard I would recommend we obtain a CTA scan of the brain to rule out the possibility of a cerebral aneurysm. Otherwise I would recommend aggressive management of her hypertension at this time and management of other stroke risk factors. History of Present Illness HPI: Chart was reviewed, pt seen and examined after resident. I agree with his assessment as stated above. I would like to add to the history that she denies a prior history of recurrent headaches, she admits to blurred vision but denies diplopia. She has been afebrile, she also admitted to nausea and vomiting over the past week along with headaches and balance difficulty. Her father apparently of a ruptured cerebral aneurysm at the age of 64. MRI scan of the brain was negative for acute infarct. All Systems: The remainder of the systems were reviewed and are negative Review of Systems: The balance of the systems review is negative. Physical Examination - Vital Signs Vital Signs: Initial Vital Signs Temp Pulse Resp BP Pulse Ox 98.1 F 61 20 170/84 95 06/15/18 16:51 06/15/18 16:51 06/15/18 16:51 06/15/18 16:51 06/15/18 16:51 - Neurologic Detailed motor examination: other (Patient has normal strength of the right upper and right lower extremities. She has giveaway weakness of the left deltoid and left biceps triceps left guest request runner, left iliopsoas quadriceps into tibialis and gastrocnemius muscles. She has normal tone symmetrically however. No involuntary movements or atrophy are present.) Mental Status Examination: awake, alert, oriented to person, oriented to place, oriented to time, follows commands appropriately, answers questions appropriately, no agnosia, no aphasia, no aproxia Cranial nerve examination: PERRL, EOMI, visual heart intact, corneal reflexes brisk symmetrically, sensory to face intact, mastication intact, no facial asymmetry is present, no dysarthria, hearing is intact symmetrically, tongue protrudes midline, no atrophy or facial fasiculations present Cerebellar examination: no dysmetria, no gait ataxia Results - Laboratory Findings CBC and BMP: 06/17/18 07:17 06/17/18 07:17 Abnormal lab findings: Abnormal lab results WBC 3.5 K/mcL (4.3-11.1) L 06/17/18 07:17 MCH 27.5 pg (28.0-33.3) L 06/17/18 07:17 Reactive Lymphocytes Present (Not Present) A 06/16/18 05:44 D-Dimer 1735 ng/mLFEU (0-500) H 06/15/18 17:19 Est GFR (Non-Af Amer) 52 (> 60) L 06/17/18 07:17 Glucose 203 mg/dL (70-105) H 06/17/18 07:17 POC Glucose 256 mg/dL (70-99) H 06/17/18 10:53 Hemoglobin A1c 12.7 % (-5.6) H 06/16/18 11:45 Calcium 6.4 mg/dL (8.6-10.3) L 06/17/18 07:17 Magnesium 1.4 mg/dL (1.6-2.6) L 06/17/18 11:09 Total Bilirubin 4.1 mg/dL (0.3-1.0) H 06/17/18 07:17 Direct Bilirubin 2.9 mg/dL (0.0-0.2) H 06/16/18 05:44 GGT 276 Units/L (1-24) H 06/16/18 05:44 AST 365 Units/L (13-39) H 06/17/18 07:17 ALT > 500 Units/L (7-52) H 06/17/18 07:17 Alkaline Phosphatase 697 Units/L (34-104) H 06/17/18 07:17 Serum Total Protein 5.5 g/dL (6.4-8.9) L 06/17/18 07:17 Albumin 2.8 g/dL (3.5-5.7) L 06/17/18 07:17 Albumin/Globulin Ratio 1.0 (1.1-2.2) L 06/17/18 07:17 Triglycerides 194 mg/dL (< 150) H 06/16/18 11:45 VLDL Cholesterol, Calc 39 mg/dL (< 31) H 06/16/18 11:45 HDL Cholesterol 10 mg/dL (40-59) L 06/16/18 11:45 Cholesterol/HDL Ratio 14.8 (0-4.9) H 06/16/18 11:45 Vitamin B12 > 1500 pg/mL (250-1100) H 06/17/18 07:17 Salicylates < 2.5 mg/dL (15.0-30.0) L 06/15/18 17:19 Acetaminophen < 10 mcg/mL (10-20) L 06/15/18 17:19 Hepatitis A IgM Ab Reactive (Nonreactive) H 06/15/18 17:19
--- NOTE | 2018-06-17 13:23 | Gastroenterology Progress Note ---
<Mady Marroquin - Last Filed: 06/17/18 13:16> Date of Encounter: 06/17/18 Time of Encounter: 10:00 - Assessment and plan (1) Hepatitis A Status: Acute Assessment and plan: Patient has acute hepatitis A infection likely contracted from her son whom was just diagnosed 3 weeks ago with hepatitis A, B, C infection. She reported nausea, vomiting, weakness, fatigue, lightheadedness, pruritus, skin discoloration, right upper quadrant pain. Denied fever, chills, scleral icterus, jaundice. Hepatitis A positive PT 13, INR 1.2 total bilirubin 4.1 (3.9), direct bilirubin 2.9 AST 365 (493), ALT >500 alkaline phosphatase 697 (594) albumin 2.9 GGT 276 liver ultrasound demonstrated fatty liver Plan: continue supportive treatment. There is a slight increase in alkaline phosphatase and total bilirubin however this can be seen with hepatitis A. May be discharged as she is tolerating PO intake well. Qualifiers: Hepatic coma status: without hepatic coma Qualified Code(s): B15.9 - Hepatitis A without hepatic coma (2) Encephalopathy Status: Acute Assessment and plan: Resolved. The patient reported that she been having dizziness. Ammonia 53. May be due to dehydration and decreased oral intake since feeling unwell. -Will continue to monitor - Time Spent With Patient Total time spent is greater than 50% in coordination of care (as documented) at patient's floor/unit and/or counseling patient: - Subjective Interval history: Patient was seen and examined at bedside. She is alert and oriented times 3. She reported she feels much improved from admission and that abdominal pain is almost resolved. She tolerated oral diet well. She denies fever, chills, nausea, vomiting. - Constitutional Vitals: Temp Pulse Resp BP Pulse Ox 97.8 F 70 16 188/75 95 06/17/18 10:12 06/17/18 10:12 06/17/18 10:12 06/17/18 10:12 06/17/18 10:12 Exam: Gen.: Vitals noted. No acute distress. AAOx3 HEENT: oropharynx clear, Normocephalic, atraumatic Neck: Supple. No adenopathy. Cardiac: RRR, no murmur, +S1/S2 Pulmonary: CTA bilaterally, no wheezes, rales or rhonchi, equal chest expansion Abdomen: soft, nontender, Bowel sounds noted, no guarding MSK: ROM intact, no joint swelling noted Neuro: A&Ox3, moves all extremities, no focal deficits Psych: Appropriate mood and behavior Results - Labs CBC & Chem 7: 06/17/18 07:17 06/17/18 07:17 Labs: Last Result Calcium 6.4 mg/dL (8.6-10.3) L 06/17/18 07:17 Troponin I < 0.03 ng/mL (< 0.04) 06/15/18 17:19 Triglycerides 194 mg/dL (< 150) H 06/16/18 11:45 Vitamin B12 > 1500 pg/mL (250-1100) H 06/17/18 07:17 Salicylates < 2.5 mg/dL (15.0-30.0) L 06/15/18 17:19 Entire Visit Hgb 11.5 g/dL (11.5-15.4) 06/17/18 07:17 Hct 36.2 % (35.3-44.9) 06/17/18 07:17 PT 11.8 Seconds (9.4-12.1) 06/17/18 07:17 Total Bilirubin 4.1 mg/dL (0.3-1.0) H 06/17/18 07:17 AST 365 Units/L (13-39) H 06/17/18 07:17 ALT > 500 Units/L (7-52) H 06/17/18 07:17 Ammonia 53 mcmol/L (16-53) 06/16/18 05:44 Lipase 50 Units/L (11-82) 06/15/18 17:19 Acetaminophen < 10 mcg/mL (10-20) L 06/15/18 17:19 - ABG ABG results: PT/INR, D-dimer PT 11.8 Seconds (9.4-12.1) 06/17/18 07:17 D-Dimer 1735 ng/mLFEU (0-500) H 06/15/18 17:19 - Impressions Impressions Echocardiogram 06/16/18 07:34 Impressions: LVEF 60-65%. Normal LV chamber size and function. Asymmetric hypertrophy of the basal septum. Mild left ventricular diastolic dysfunction. Atypical septal motion consistent with bundle branch block. Mildly dilated right ventricle with normal function. No evidence of pulmonary hypertension. RVSP not well obtained due to poor TR jet and could be underestimated. Brain MRI 06/16/18 11:19 IMPRESSION: No acute infarct or acute intracranial process identified. D/ / Cr Alberts MD / Cr Alberts MD Interpreting Provider: Cr Alberts MD Consult Discharge Plan - Plan Referrals: Keisha Silva APN [Advanced Practice Nurse] - 07/01/18 9:40 am Katie Molina MD [Partnered Physician] - (Web request sent on 06/18.) Prescriptions: Alcohol Antiseptic Pads [Alcohol Pads] 1 each TP QIDAC 30 Days #120 med..pad RX: Aspirin 81 mg PO DAILY #30 tab.chew Blood-Glucose Meter, Drum-Type [Accu-Chek] 1 each MC TIDAC #1 kit Calcium Carbonate/Vitamin D3 [Calcium 500 + Vit D Caplet] 1 each PO BID 30 Days #60 tablet Insulin Regular, Human [Novolin R] 0 unit IJ TIDAC 30 Days #10 ml Syrge-Ndl,Ins 0.3 ml Half Dago [Insulin Syringe] 1 each MC TIDAC 30 Days #90 disp.syrin <John Lynch - Last Filed: 06/28/18 21:49> - Time Spent With Patient Total time spent is greater than 50% in coordination of care (as documented) at patient's floor/unit and/or counseling patient: - Constitutional Vitals: Temp Pulse Resp BP Pulse Ox 98.3 F 54 16 149/81 96 06/18/18 16:04 06/18/18 16:04 06/18/18 16:04 06/18/18 16:04 06/18/18 16:04 Results - Labs CBC & Chem 7: 06/17/18 07:17 06/17/18 07:17 Labs: Last Result Calcium 6.3 mg/dL (8.6-10.3) L 06/18/18 05:39 Troponin I < 0.03 ng/mL (< 0.04) 06/15/18 17:19 Triglycerides 194 mg/dL (< 150) H 06/16/18 11:45 Vitamin B12 > 1500 pg/mL (250-1100) H 06/17/18 07:17 Salicylates < 2.5 mg/dL (15.0-30.0) L 06/15/18 17:19 Entire Visit Hgb 11.5 g/dL (11.5-15.4) 06/17/18 07:17 Hct 36.2 % (35.3-44.9) 06/17/18 07:17 PT 12.0 Seconds (9.4-12.1) 06/18/18 05:39 Total Bilirubin 3.8 mg/dL (0.3-1.0) H 06/18/18 05:39 AST 282 Units/L (13-39) H 06/18/18 05:39 ALT 407 Units/L (7-52) H 06/18/18 05:39 Ammonia 53 mcmol/L (16-53) 06/16/18 05:44 Lipase 50 Units/L (11-82) 06/15/18 17:19 Acetaminophen < 10 mcg/mL (10-20) L 06/15/18 17:19 - ABG ABG results: PT/INR, D-dimer PT 12.0 Seconds (9.4-12.1) 06/18/18 05:39 D-Dimer 1735 ng/mLFEU (0-500) H 06/15/18 17:19 - Attending Attestation UNcomplicated acute hepatitis A. Family member also apparently with same presentation. Supportive care and discharge. Follow up in clinic. I examined this patient and my medical decision-making was reviewed with the Resident Physician. I agree with the documented findings, disposition and treatment plan as described except to the extent set forth below.
[2018-06-17 16:42] LABS: VBG Ionized Calcium 0.89 mmol/L (1.15-1.35)
[2018-06-17] MEDS ORDERED: Insulin DETEMIR 100 UNIT/ML X5UNITS SQ SCH ×2 (21:00)
[2018-06-17] MEDS ORDERED: Insulin LISPRO 300 UNITS/3 ML VIAL SQ SCH (21:00)
[2018-06-17] MEDS ORDERED: traMADol 50 MG TABLET PO ONE (22:45)
[2018-06-18 06:28] LABS: Albumin 2.8 g/dL (3.5-5.7); Albumin/Globulin Ratio 1.1 (1.1-2.2); Bilirubin,Direct 2.5 mg/dL (0.0-0.2); Bilirubin,Indirect 1.3 mg/dL (0.0-1.2); Bilirubin,Total 3.8 mg/dL (0.3-1.0); Calcium 6.3 mg/dL (8.6-10.3); Globulin 2.6 g/dL (2.4-3.5); Magnesium 1.6 mg/dL (1.6-2.6); Total Protein 5.4 g/dL (6.4-8.9)
[2018-06-18 06:31] LABS: INR 1.1
[2018-06-18] MEDS: *HR* Heparin 5,000 UNIT/ML VIAL SQ SCH ×2 (06:33→16:16)
[2018-06-18] MEDS: Aspirin 81 MG TAB.CHEW PO SCH (08:39)
[2018-06-18] MEDS: Lactulose Oral Soln 20 GM/30 ML UDC PO SCH (08:40)
[2018-06-18] MEDS: Insulin LISPRO 300 UNITS/3 ML VIAL SQ SCH ×2 (08:42→12:46)
[2018-06-18] MEDS: Gabapentin 300 MG CAPSULE PO SCH ×2 (08:49→16:16)
[2018-06-18] MEDS ORDERED: Lisinopril 20 MG TABLET PO SCH (09:00)
--- NOTE | 2018-06-18 11:53 | Discharge Summary ---
- NOTES TO OUTPATIENT PROVIDER Notes to Outpatient Provider: follow up blood glucose log and A1c level. needs to follow up with GI. follow up with LFTS. consider starting statins once LFTS have stabilized. follow calcium and vitamin D levels. follow creatinine and potassium levels ( had ARF which resolved was restarted on home medications) Orders not resulted at time of discharge: Pending orders 06/17/18 11:09 Vitamin D 25 Hydroxy Routine Date of Encounter: 06/18/18 Time of Encounter: 11:50 - Discharge Diagnosis (1) Hepatitis A Priority: Primary Status: Acute Qualifiers: Hepatic coma status: without hepatic coma Qualified Code(s): B15.9 - Hepatitis A without hepatic coma (2) Pre-syncope Priority: Secondary Status: Acute (3) Uncontrolled diabetes mellitus Priority: Secondary Status: Acute Qualifiers: Diabetes mellitus type: type 2 Glycemic state: with hyperglycemia Qualified Code(s): E11.65 - Type 2 diabetes mellitus with hyperglycemia (4) Hypertension Priority: Secondary Status: Acute Qualifiers: Hypertension type: essential hypertension Qualified Code(s): I10 - Essential (primary) hypertension (5) Hypothyroidism Priority: Secondary Status: Acute Qualifiers: Hypothyroidism type: acquired Qualified Code(s): E03.9 - Hypothyroidism, unspecified (6) Hypomagnesemia Priority: Secondary Status: Acute (7) Hypocalcemia Priority: Secondary Status: Acute (8) Encephalopathy Priority: Secondary Status: Acute (9) Acute renal failure (ARF) Priority: Secondary Status: Acute Qualifiers: Acute renal failure type: unspecified Qualified Code(s): N17.9 - Acute kidney failure, unspecified (10) Morbidly obese Priority: Secondary Status: Acute (11) DVT prophylaxis Priority: Secondary Status: Acute Hospital course: Ms. Otero is a 57 year old female with history of diabetes, hypertension, fatty liver, cholecystectomy in 2005, thyroidectomy in 2010 presents to [facility] with complaint of abdominal pain, shortness of breath and a feeling of lightheadedness and presyncope for approximately 1 week duration. and was found to have acute hepatitis A and was admitted for presyncope rule out stroke. labs on admission were significant for transminitis which were followed and trended down. gastoenetrology was consulted and recommended supporative management and to follow with GI as OP for fatty liver. RUQ US was performed- results below. she complained of pre syncope and dizziness along with vision changes in setting of dehdyration and electrolyte abnormalities, CT head was negative for any acute abnormalities, MRA/MRI, carotid doppler and TTE were performed and results below. neurology consulted and recommendations followed, i discussed all imaging with neurology team and she was stable for discharge. she was started on ASA and is to have statins started once her LFTs have stabilized. Blood glucose was elevated on admission A1c performed which showed level of 12.7. as per patient she does miss some doses of her medications while at home. diabetic educations performed by myself. metformin stopped and she is to continue sliding scale with meals and keep glucose logs to take to her CP for adjustment of her insulin dosage. she was provided with Rx of diabetic supplies / glucometer. she was found to be hypocalcemic and was started on oral calcium and vitamin D tablets, for PCP to follow vitamin D level which is in process in addition to above she was dehdyrated on admission with ARF, lasix was held on admission along with AceI however they were resumed as renal functions returned back to baseline. for PCP to monitor renal functions and adjust medications as per their discretions. she was counseled extensively on nutrition and weight loss. she was counseled on alcohol abstinence Appointments with PCP, GI were made by CXR- IMPRESSION: No acute process. Cardiomegaly CTA chest: 1. No evidence of pulmonary embolism or acute pulmonary abnormality. 2. Nonspecific 4 mm right upper lobe lung nodule. See follow-up guidelines below. RUQ US: IMPRESSION: Diffuse fatty infiltration of the liver. Prior cholecystectomy. Otherwise unremarkable exam. Head CT: IMPRESSION: No acute intracranial abnormality. carotid doppler: Impressions: Findings: Bilateral carotid system has nonstenotic plaque. TTE: Impressions: LVEF 60-65%. Normal LV chamber size and function. Asymmetric hypertrophy of the basal septum. Mild left ventricular diastolic dysfunction. Atypical septal motion consistent with bundle branch block. Mildly dilated right ventricle with normal function. No evidence of pulmonary hypertension. RVSP not well obtained due to poor TR jet and could be underestimated. MRI head: IMPRESSION: No acute infarct or acute intracranial process identified. MRA: IMPRESSION: 1. No convincing evidence of an intracranial aneurysm. 2. There is a moderate focal stenosis involving the right P1 segment, which is diminutive in nature with the right posterior cerebral artery predominately supplied via the right posterior communicating artery. Discharge discussed with: patient, nurse, social work, consultant electronics - Time Spent with Patient Total time spent providing and/or coordinating discharge services: Greater than 30 minutes - Discharge Medications Prescriptions: Aspirin 81 mg PO DAILY #30 tab.chew Blood-Glucose Meter, Drum-Type [Accu-Chek] 1 each TIDAC #1 kit Calcium Carbonate/Vitamin D3 [Calcium 500 + Vit D Caplet] 1 each PO BID 30 Days #60 tablet Insulin Regular, Human [Novolin R] 0 unit IJ TIDAC 30 Days #10 ml Home Medications: Atenolol [Tenormin] 50 mg PO DAILY 10/27/17 [History] Insulin Degludec [Tresiba Flextouch U-100] 50 - 70 unit SQ HS 10/27/17 [History] Levothyroxine [Synthroid] 150 mcg PO DAILY 10/27/17 [History] Lisinopril [Zestril] 40 mg PO DAILY 10/27/17 [History] Mv-Mn/FA/Vit K/Lycop/Lut/Coq10 [Daily Multivitamin Capsule] 1 tab PO DAILY 10/27 [History] Omeprazole [PriLOSEC] 20 mg PO DAILY 10/27/17 [History] Furosemide [Lasix] 40 mg PO DAILY PRN 06/15/18 [History] Gabapentin [Neurontin] 300 mg PO TID 06/15/18 [History] Potassium Chloride [K-Tab ER] 10 meq PO DAILY PRN 06/15/18 [History] Aspirin 81 mg PO DAILY #30 tab.chew 06/18/18 [Rx] Blood-Glucose Meter, Drum-Type [Accu-Chek] 1 each TIDAC #1 kit 06/18/18 [Rx] Calcium Carbonate/Vitamin D3 [Calcium 500 + Vit D Caplet] 1 each PO BID 30 Days #60 tablet 06/18/18 [Rx] Insulin Regular, Human [Novolin R] 0 unit IJ TIDAC 30 Days #10 ml 06/18/18 [Rx] Allergies/Adverse Reactions: 3 Allergy/AdvReac Type Severity Reaction Status Date / Time Amoxicillin Allergy Hives Verified 06/15/18 20:37 morphine Allergy Vomiting Verified 06/15/18 20:37 Date of admission: 06/16/18 00:34 Primary care physician: Lexi Tan CNP Consults: 06/16/18 01:31 Consult to Nutrition [CONS] Routine Comment: Consulting Provider: NUTRITION Reason for Dietary Consult: MST Score 06/16/18 11:21 Consult to Neurology [CONS] Routine Consulting Provider: Neurology [facility] Reason for Consult: ? posterior fossa stroke, unsteady gait Call Completed: No 06/17/18 07:44 Consult to Physical Therapy [CONS] Routine Comment: Evaluate, develop and implement POC Reason for Consult: dispostion Does patient have active BEDREST order?: No Is patient medically & hemodynamically stable?: Yes Patient assessed for mobility or mobilized this visit?: Yes - Constitutional Vitals: Temp Pulse Resp BP Pulse Ox 98.3 F 53 16 148/83 97 06/18/18 06:21 06/18/18 06:21 06/18/18 06:21 06/18/18 06:21 06/18/18 06:21 General appearance: Present: cooperative, mild distress, A&O X 3, pleasant, answers questions appropriately Exam: General: Patient is alert, oriented, no acute distress, morbidly obese Head: atraumatic, normocephalic, Eye: normal appearance, PERRL, no scleral icterus, no conjunctival injection ENT: mucous membranes moist, normal external ear exam Neck: normal inspection, trachea midline, full ROM, no carotid bruits Chest: normal inspection, symmetric chest rise Respiratory: Good respiratory effort. Bilateral breath sounds are clear without wheezing, crackles, or rhonchi. Cardiovascular: Regular rate and rhythm. s1 and s2 No clicks, rubs, gallops, or murmors. Abdomen: Bowel sounds present normoactive x-4 quadrants. Abdomen is soft, no Epigastric tenderness. No guarding or rebound. No organomegaly noted, obese musculoskeletal: Spontaneously moving all extremities. no edema, no calf tenderness Skin: warm, dry, intact. Neuro: Alert and oriented x4. Sensation light touch intact. Cranial nerves 2- 12 is intact. rapid hand movements and finger to nose intact Psych: Patient's affect is normal - Patient Status Disposition: Home, Self-Care Condition: Good Functional capacity at discharge: independent ambulation Overall status at discharge: patient is progressing back to baseline - Discharge Instructions Follow Up With: Lexi Tan CNP [Primary Care Provider] - Katie Molina MD [Partnered Physician] - (Web request sent on 06/18.) - Diet and Activity Activity: increase activity as tolerated Diet: diabetic diet (low fat )
--- NOTE | 2018-06-18 12:40 | Physician Discharge Referral ---
Home Health/Hosp Referral Info Transfer to: Home Health Provider in Charge Post Discharge: PCP - Diagnosis (1) Hepatitis A Priority: Primary Status: Acute (2) Pre-syncope Priority: Secondary Status: Acute (3) Uncontrolled diabetes mellitus Priority: Secondary Status: Acute (4) Hypertension Priority: Secondary Status: Acute (5) Hypothyroidism Priority: Secondary Status: Acute (6) Hypomagnesemia Priority: Secondary Status: Acute (7) Hypocalcemia Priority: Secondary Status: Acute (8) Encephalopathy Priority: Secondary Status: Acute (9) Acute renal failure (ARF) Priority: Secondary Status: Acute (10) Morbidly obese Priority: Secondary Status: Acute (11) DVT prophylaxis Priority: Secondary Status: Acute - Respiratory Orders Smoking Cessation: Smoking cessation has been advised. For more information, call the [facility] Tobacco Quit Line at 1-634-WOLY-NOW. - Diet/Nutrition Diet/Nutrition: List: diabetic low fat - Activity Activity Orders: Ambulate - Services Needed Following services are medically necessary services: Home Health Aide, Physical Therapy - Transfer Medications Prescriptions: Aspirin 81 mg PO DAILY #30 tab.chew Blood-Glucose Meter, Drum-Type [Accu-Chek] 1 each MC TIDAC #1 kit Calcium Carbonate/Vitamin D3 [Calcium 500 + Vit D Caplet] 1 each PO BID 30 Days #60 tablet Insulin Regular, Human [Novolin R] 0 unit IJ TIDAC 30 Days #10 ml Home Medications: Atenolol [Tenormin] 50 mg PO DAILY 10/27/17 [History] Insulin Degludec [Tresiba Flextouch U-100] 50 - 70 unit SQ HS 10/27/17 [History] Levothyroxine [Synthroid] 150 mcg PO DAILY 10/27/17 [History] Lisinopril [Zestril] 40 mg PO DAILY 10/27/17 [History] Mv-Mn/FA/Vit K/Lycop/Lut/Coq10 [Daily Multivitamin Capsule] 1 tab PO DAILY 10/27 [History] Omeprazole [PriLOSEC] 20 mg PO DAILY 10/27/17 [History] Furosemide [Lasix] 40 mg PO DAILY PRN 06/15/18 [History] Gabapentin [Neurontin] 300 mg PO TID 06/15/18 [History] Potassium Chloride [K-Tab ER] 10 meq PO DAILY PRN 06/15/18 [History] Aspirin 81 mg PO DAILY #30 tab.chew 06/18/18 [Rx] Blood-Glucose Meter, Drum-Type [Accu-Chek] 1 each MC TIDAC #1 kit 06/18/18 [Rx] Calcium Carbonate/Vitamin D3 [Calcium 500 + Vit D Caplet] 1 each PO BID 30 Days #60 tablet 06/18/18 [Rx] Insulin Regular, Human [Novolin R] 0 unit IJ TIDAC 30 Days #10 ml 06/18/18 [Rx] Allergies/Adverse Reactions: 3 Allergy/AdvReac Type Severity Reaction Status Date / Time Amoxicillin Allergy Hives Verified 06/15/18 20:37 morphine Allergy Vomiting Verified 06/15/18 20:37 Certification: Further, I certify that my clinical findings support that this patient is homebound (i.e. absences from home require considerable and taxing effort and are for medical reasons or taoist services or infrequently or short duration when for other reasons) because: Homebound Reason: Patient requires assistance of a person or device to safely leave home Attestation: My signature below is to certify that this patient is under my care and that I, or nurse practitioner, or a physician's administrative library assistant working with me, has a face-to -face encounter with this patient.
[2018-06-18 16:07] VITALS: BP 149/81
--- NOTE | 2018-06-18 16:15 | Neurology Progress Note ---
Date of Encounter: 06/18/18 Time of Encounter: 16:12 Assessment and Plan (1) Pre-syncope Current Visit: Yes Status: Acute This juncture I am unable to find any primary neurologic etiology to explain her admitting symptoms. MRI scan of the brain was negative for any acute evidence of infarct, neoplasm or hemorrhage. I suspect that the headaches may be migrainous in origin. I see no evidence of a central nervous system infectious process. At this juncture from a neurologic perspective she is stable. I will reevaluate her at your request. Aggressive management of her glycemic profile and blood pressure are paramount. Subjective Interval history: Chart was reviewed, patient was seen and examined. Denies any further symptoms of headache. She continues to have complaints of left-sided weakness. I am not however able to provide a specific neurophysiologic explanation for this. MRA scan of the brain is negative for any evidence of aneurysm. There is persistent circulation with evidence of moderate focal stenosis of the P1 segment of the right posterior cerebral artery. From a neurologic perspective she is stable. Objective - Constitutional Vitals: Temp Pulse Resp BP Pulse Ox 98.3 F 54 16 149/81 96 06/18/18 16:04 06/18/18 16:04 06/18/18 16:04 06/18/18 16:04 06/18/18 16:04 - Neurological Exam Motor Examination: Present: other (Patient has giveaway weakness of the left upper and left lower extremities. She has normal tone throughout. No involuntary movements or atrophy are present.) Mental Status Examination: Present: awake, alert, oriented to person, oriented to place, oriented to time, follows commands appropriately, answers questions appropriately, no agnosia, no aphasia, no aproxia Cranial nerve examination: Present: PERRL, EOMI, visual heart intact, corneal reflexes brisk symmetrically, sensory to face intact, mastication intact, no facial asymmetry is present, no dysarthria, hearing is intact symmetrically, tongue protrudes midline, no atrophy or facial fasiculations present Cerebellar examination: Present: no dysmetria, no gait ataxia Results - Laboratory Findings CBC and BMP: 06/17/18 07:17 06/17/18 07:17 Abnormal lab findings: Abnormal lab results WBC 3.5 K/mcL (4.3-11.1) L 06/17/18 07:17 MCH 27.5 pg (28.0-33.3) L 06/17/18 07:17 Reactive Lymphocytes Present (Not Present) A 06/16/18 05:44 D-Dimer 1735 ng/mLFEU (0-500) H 06/15/18 17:19 Est GFR (Non-Af Amer) 52 (> 60) L 06/17/18 07:17 Glucose 203 mg/dL (70-105) H 06/17/18 07:17 POC Glucose 233 mg/dL (70-99) H 06/17/18 22:07 Hemoglobin A1c 12.7 % (-5.6) H 06/16/18 11:45 Calcium 6.3 mg/dL (8.6-10.3) L 06/18/18 05:39 Venous Ioniz Calcium 0.89 mmol/L (1.15-1.35) L 06/17/18 16:28 Total Bilirubin 3.8 mg/dL (0.3-1.0) H 06/18/18 05:39 Direct Bilirubin 2.5 mg/dL (0.0-0.2) H 06/18/18 05:39 Indirect Bilirubin 1.3 mg/dL (0.0-1.2) H 06/18/18 05:39 GGT 276 Units/L (1-24) H 06/16/18 05:44 AST 282 Units/L (13-39) H 06/18/18 05:39 ALT 407 Units/L (7-52) H 06/18/18 05:39 Alkaline Phosphatase 832 Units/L (34-104) H 06/18/18 05:39 Serum Total Protein 5.4 g/dL (6.4-8.9) L 06/18/18 05:39 Albumin 2.8 g/dL (3.5-5.7) L 06/18/18 05:39 Triglycerides 194 mg/dL (< 150) H 06/16/18 11:45 VLDL Cholesterol, Calc 39 mg/dL (< 31) H 06/16/18 11:45 HDL Cholesterol 10 mg/dL (40-59) L 06/16/18 11:45 Cholesterol/HDL Ratio 14.8 (0-4.9) H 06/16/18 11:45 Vitamin B12 > 1500 pg/mL (250-1100) H 06/17/18 07:17 25-OH Vitamin D Total 25 ng/mL (30-80) L 06/17/18 11:09 Salicylates < 2.5 mg/dL (15.0-30.0) L 06/15/18 17:19 Acetaminophen < 10 mcg/mL (10-20) L 06/15/18 17:19 Hepatitis A IgM Ab Reactive (Nonreactive) H 06/15/18 17:19 Consult Discharge Plan - Plan Referrals: Lexi Tan CNP [Primary Care Provider] - Katie Molina MD [Partnered Physician] - (Web request sent on 06/18.) Prescriptions: Aspirin 81 mg PO DAILY #30 tab.chew Blood-Glucose Meter, Drum-Type [Accu-Chek] 1 each MC TIDAC #1 kit Calcium Carbonate/Vitamin D3 [Calcium 500 + Vit D Caplet] 1 each PO BID 30 Days #60 tablet Insulin Regular, Human [Novolin R] 0 unit IJ TIDAC 30 Days #10 ml
== END 2018-06-18 18:34 | disposition home or self-care (01) ==
LOC: EMEROOARM 16:50 → 3ANU 16:50 → SUATTDRO 06-16 00:34 → 3ANU 06-16 00:51
PROVIDERS: ADMIT Family Medicine; ATTEND Internal Medicine

== ENCOUNTER 2020-10-23 21:03 | Inpatient (IN) ==
[2020-10-23] MEDS ORDERED: Isovue-370 500 ML BOTTLE IVP ONE (21:21)
[2020-10-23] MEDS ORDERED: Ondansetron 4 MG/2 ML VIAL IVP ONE (21:22)
[2020-10-23 22:10] LABS: VBG HCO3 30 mEq/L (21-27); VBG PCO2 58 mmHg (41-51); VBG PH 7.32 pH Units (7.32-7.42); VBG PO2 58 mmHg (25-50)
[2020-10-23 22:10] LABS: Basophils # 0.1 K/mcL (0.0-0.2); Basophils % 0.9 %; Eosinophils # 0.1 K/mcL (0.0-0.6); Eosinophils % 1.3 %; Hematocrit 34.1 % (35.3-44.9); Hemoglobin 10.8 g/dL (11.5-15.4); Immature Granulocytes % 0.6 % (0-4); Lymphocytes # 1.8 K/mcL (0.6-4.6); Lymphocytes % 26.2 %; Mean Corpuscular HGB Conc 31.7 g/dL (31.6-35.5); Mean Corpuscular Hemoglobin 28.4 pg (28.0-33.3); Mean Corpuscular Volume 89.7 fL (83.0-100.0); Mean Platelet Volume 8.8 fL (9.4-12.4); Monocytes # 0.5 K/mcL (0.0-1.3); Monocytes % 7.3 %; Neutrophils # 4.4 K/mcL (1.6-8.9); Platelet Count 349 K/mcL (140-400); Red Cell Distribution Width 13.2 % (11.5-14.5); Segmented Neutrophils % 63.7 %; White Blood Count 6.9 K/mcL (4.3-11.1)
[2020-10-23 22:13] LABS: Bacteria,Urine Few per hpf (None-Few); Bilirubin,Urine Negative (Negative); Blood,Urine Small (Negative); Clarity,Urine Clear (Clear); Color,Urine Light-Yellow (Yellow); Glucose,Urine (UA) >=1000 mg/dL (Normal); Ketones,Urine Negative (Negative); Leukocyte Esterase,Urine Negative (Negative); Nitrite,Urine Negative (Negative); Protein,Urine >=300 mg/dL (Neg-Trace); RBC,Urine 50-100 per hpf (0-3); Specific Gravity,Urine 1.018 (1.010-1.025); Squamous Epithelial Cell,Urine Few per hpf (None-Few); Urobilinogen,Urine Normal (Normal)
[2020-10-23 22:30] LABS: Alanine Aminotransferase 30 Units/L (7-52); Albumin/Globulin Ratio 0.8 (1.1-2.2); Alkaline Phosphatase 772 Units/L (34-104); Aspartate Amino Transferase 36 Units/L (13-39); BUN/Creatinine Ratio 19 (6-26); Bilirubin,Direct 0.2 mg/dL (0.0-0.2); Bilirubin,Indirect 0.1 mg/dL (0.0-1.0); Bilirubin,Total 0.3 mg/dL (0.3-1.0); Blood Urea Nitrogen 21 mg/dL (8-23); Calcium 7.5 mg/dL (8.6-10.3); Carbon Dioxide 28 mEq/L (23-29); Chloride 99 mEq/L (98-107); Globulin 3.8 g/dL (2.4-3.5); Glucose 365 mg/dL (70-105); Lipase 69 Units/L (11-82); Osmolality,Calculated 296 (280-300); Potassium 4.8 mEq/L (3.5-5.1); Sodium 134 mEq/L (136-145); Total Protein 6.8 g/dL (6.4-8.9); Troponin I < 0.03 ng/mL (< 0.04); eGFR For African Americans > 60 (> 60); eGFR For Non-African Americans 50 (> 60)
[2020-10-23 22:43] LABS: Thyroid Stimulating Hormone 2.322 mcIU/mL (0.340-5.600)
[2020-10-24 02:54] LABS: Adenovirus Not Detected (Not Detect); Bordetella Pertussis Not Detected (Not Detect); Chlamydophila pneumoniae Not Detected (Not Detect); Coronavirus 229E Not Detected (Not Detect); Coronavirus HKU1 Not Detected (Not Detect); Coronavirus NL63 Not Detected (Not Detect); Coronavirus OC43 Not Detected (Not Detect); Human Metapneumovirus Not Detected (Not Detect); Human Rhinovirus/Enterovirus Not Detected (Not Detect); Influenza A Subtype 2009 H1 Not Detected (Not Detect); Influenza B Not Detected (Not Detect); Mycoplasma pneumoniae Not Detected (Not Detect); Parainfluenza Virus 1 Not Detected (Not Detect); Parainfluenza Virus 2 Not Detected (Not Detect); Parainfluenza Virus 3 Not Detected (Not Detect); Parainfluenza Virus 4 Not Detected (Not Detect); Respiratory Syncytial Virus Not Detected (Not Detect); SARS-CoV-2 Not Detected (Not Detect)
[2020-10-24] MEDS ORDERED: Naloxone 0.4 MG/ML INJ IVP PRN (02:55)
[2020-10-24] MEDS ORDERED: D5% in Water 1,000 ML IVC PRN (02:57)
[2020-10-24] MEDS ORDERED: *HR* Dextrose 50 % in Water (Vial) 50 ML VIAL IVP PRN (02:57)
[2020-10-24] MEDS ORDERED: Dextrose Gel 15 GM/37.5 ML TUBE PO PRN ×2 (02:57)
[2020-10-24 05:34] LABS: Hematocrit 34.4 % (35.3-44.9); Hemoglobin 10.6 g/dL (11.5-15.4); Mean Corpuscular HGB Conc 30.8 g/dL (31.6-35.5); Mean Corpuscular Hemoglobin 27.8 pg (28.0-33.3); Mean Corpuscular Volume 90.3 fL (83.0-100.0); Mean Platelet Volume 9.1 fL (9.4-12.4); Platelet Count 357 K/mcL (140-400); Red Blood Count 3.81 M/mcL (3.82-4.97); Red Cell Distribution Width 13.2 % (11.5-14.5); White Blood Count 8.1 K/mcL (4.3-11.1)
[2020-10-24 05:46] LABS: BUN/Creatinine Ratio 20 (6-26); Blood Urea Nitrogen 19 mg/dL (8-23); Calcium 7.6 mg/dL (8.6-10.3); Carbon Dioxide 29 mEq/L (23-29); Chloride 100 mEq/L (98-107); Glucose 267 mg/dL (70-105); Magnesium 1.7 mg/dL (1.6-2.6); Osmolality,Calculated 290 (280-300); Potassium 4.8 mEq/L (3.5-5.1); Sodium 134 mEq/L (136-145); eGFR For African Americans > 60 (> 60); eGFR For Non-African Americans 60 (> 60)
[2020-10-24 06:04] LABS: Estimated Average Glucose 418 mg/dl; Hemoglobin A1C 16.2 %
[2020-10-24] MEDS: Insulin LISPRO 300 UNITS/3 ML VIAL SUBQ SCH ×5 (06:20→20:40)
[2020-10-24] MEDS: Aspirin 81 MG TAB.CHEW PO SCH (08:46)
[2020-10-24] MEDS: lisinopriL 20 MG TABLET PO SCH ×2 (08:46→20:39)
[2020-10-24] MEDS: cefTRIAXone 1,000 MG in 0.9 % Sodium Chloride Mini Bag 100 ML IVPB SCH (08:46)
[2020-10-24] MEDS: Gabapentin 300 MG CAPSULE PO SCH ×3 (08:47→20:38)
[2020-10-24] MEDS: Azithromycin 500 MG in 0.9 % Sodium Chloride 250 ML IVPB SCH (09:34)
[2020-10-24] MEDS: Insulin DETEMIR 100 UNIT/ML X5UNITS SUBQ SCH (09:48)
[2020-10-24] MEDS: amLODIPine 5 MG TABLET PO SCH (09:48)
[2020-10-24] MEDS ORDERED: Perflutren Lipid Microsphere 1.3 ML in 0.9 % Sodium Chloride 8.7 ML IVP PRN (10:53)
[2020-10-24] MEDS ORDERED: Calcium Gluconate 1gm/50mL 1 GM/50 ML BAG IVPB ONE (10:58)
[2020-10-24 11:37] LABS: Hepatitis B Surface Antigen Nonreactive (Nonreactive)
[2020-10-24 12:06] LABS: Hepatitis B Core IgM Nonreactive (Nonreactive)
[2020-10-24 12:07] LABS: Hepatitis C Virus Antibody Nonreactive (Nonreactive)
[2020-10-24 12:08] LABS: Hepatitis A Antibody IgM Nonreactive (Nonreactive)
[2020-10-25 05:57] LABS: Basophils # 0.1 K/mcL (0.0-0.2); Basophils % 0.7 %; Eosinophils # 0.1 K/mcL (0.0-0.6); Eosinophils % 1.3 %; Hematocrit 32.2 % (35.3-44.9); Hemoglobin 9.8 g/dL (11.5-15.4); Immature Granulocytes % 0.4 % (0-4); Lymphocytes % 24.4 %; Mean Corpuscular HGB Conc 30.4 g/dL (31.6-35.5); Mean Corpuscular Hemoglobin 28.2 pg (28.0-33.3); Mean Corpuscular Volume 92.5 fL (83.0-100.0); Mean Platelet Volume 8.9 fL (9.4-12.4); Monocytes # 0.7 K/mcL (0.0-1.3); Monocytes % 8.3 %; Neutrophils # 5.3 K/mcL (1.6-8.9); Platelet Count 308 K/mcL (140-400); Red Blood Count 3.48 M/mcL (3.82-4.97); Red Cell Distribution Width 13.3 % (11.5-14.5); Segmented Neutrophils % 64.9 %; White Blood Count 8.2 K/mcL (4.3-11.1)
[2020-10-25 06:29] LABS: Calcium 7.6 mg/dL (8.6-10.3); Phosphorous 5.9 mg/dL (2.7-4.5)
[2020-10-25 06:41] LABS: Magnesium 1.8 mg/dL (1.6-2.6)
[2020-10-25] MEDS ORDERED: NON-FORMULARY MEDICATION 1 EACH EACH (Levothyroxine Sodium [Synthroid] 200 MCG) PO SCH (09:00)
[2020-10-25 09:24] LABS: Albumin 2.8 g/dL (3.5-5.7); Albumin/Globulin Ratio 0.8 (1.1-2.2); Bilirubin,Direct 0.2 mg/dL (0.0-0.2); Bilirubin,Indirect 0.1 mg/dL (0.0-1.0); Bilirubin,Total 0.3 mg/dL (0.3-1.0); Globulin 3.6 g/dL (2.4-3.5); Total Protein 6.4 g/dL (6.4-8.9)
[2020-10-25] MEDS: Acetaminophen 325 MG TABLET PO PRN (09:33)
[2020-10-25] MEDS: Aspirin 81 MG TAB.CHEW PO SCH (09:33)
[2020-10-25] MEDS: Azithromycin 500 MG in 0.9 % Sodium Chloride 250 ML IVPB SCH (09:35)
[2020-10-25] MEDS: lisinopriL 20 MG TABLET PO SCH (09:35)
[2020-10-25] MEDS: amLODIPine 5 MG TABLET PO SCH ×2 (09:35→09:36)
[2020-10-25] MEDS: Gabapentin 300 MG CAPSULE PO SCH ×3 (09:35→21:39)
[2020-10-25] MEDS: cefTRIAXone 1,000 MG in 0.9 % Sodium Chloride Mini Bag 100 ML IVPB SCH (09:36)
[2020-10-25] MEDS: Insulin LISPRO 300 UNITS/3 ML VIAL SUBQ SCH ×4 (09:37→21:08)
[2020-10-25] MEDS: Calcium Acetate 667 MG CAPSULE PO SCH ×3 (09:43→17:48)
[2020-10-25] MEDS: Insulin DETEMIR 100 UNIT/ML X5UNITS SUBQ SCH ×2 (09:43→21:40)
[2020-10-25] MEDS: atenoloL 50 MG TABLET PO SCH (09:44)
[2020-10-25] MEDS ORDERED: Furosemide 40 MG/4 ML VIAL IVP ONE (09:45)
[2020-10-25] MEDS ORDERED: Albumin 25% 25gram/100mL 25 GM/100 ML IV.SOLN IVPB ONE (13:14)
[2020-10-25] MEDS: Ipratropium/Albuterol Neb 3 ML IH SCH ×3 (15:41→22:52)
[2020-10-25] MEDS: *HR* Heparin 5,000 UNIT/ML VIAL SQ SCH (17:47)
[2020-10-26] MEDS: Ipratropium/Albuterol Neb 3 ML IH SCH ×4 (03:36→21:36)
[2020-10-26] MEDS: *HR* Heparin 5,000 UNIT/ML VIAL SQ SCH ×2 (05:23→16:54)
[2020-10-26 05:50] LABS: Basophils # 0.1 K/mcL (0.0-0.2); Basophils % 0.7 %; Eosinophils # 0.1 K/mcL (0.0-0.6); Hematocrit 29.2 % (35.3-44.9); Hemoglobin 8.7 g/dL (11.5-15.4); Immature Granulocytes % 0.6 % (0-4); Lymphocytes # 1.8 K/mcL (0.6-4.6); Lymphocytes % 26.2 %; Mean Corpuscular HGB Conc 29.8 g/dL (31.6-35.5); Mean Corpuscular Volume 93.9 fL (83.0-100.0); Mean Platelet Volume 9.6 fL (9.4-12.4); Monocytes # 0.6 K/mcL (0.0-1.3); Monocytes % 8.3 %; Neutrophils # 4.3 K/mcL (1.6-8.9); Platelet Count 285 K/mcL (140-400); Red Blood Count 3.11 M/mcL (3.82-4.97); Red Cell Distribution Width 13.5 % (11.5-14.5); Segmented Neutrophils % 63.2 %; White Blood Count 6.8 K/mcL (4.3-11.1)
[2020-10-26 06:05] LABS: Calcium 7.8 mg/dL (8.6-10.3); Magnesium 2.1 mg/dL (1.6-2.6); Phosphorous 6.6 mg/dL (2.7-4.5); Potassium 5.3 mEq/L (3.5-5.1)
[2020-10-26 06:13] LABS: % Iron Saturation 14 % (15-50); Iron 37 mcg/dL (50-170); Transferrin 195 mg/dL (203-362)
[2020-10-26 06:22] LABS: Ferritin 88 ng/mL (10-120)
[2020-10-26 06:27] LABS: Folate 17.8 ng/mL (3.0-16.0)
[2020-10-26] MEDS: cefTRIAXone 1,000 MG in 0.9 % Sodium Chloride Mini Bag 100 ML IVPB SCH (08:11)
[2020-10-26] MEDS: Azithromycin 500 MG in 0.9 % Sodium Chloride 250 ML IVPB SCH ×2 (08:11→08:56)
[2020-10-26] MEDS: Insulin LISPRO 300 UNITS/3 ML VIAL SUBQ SCH ×4 (08:11→22:04)
[2020-10-26] MEDS: amLODIPine 5 MG TABLET PO SCH ×2 (08:12→08:13)
[2020-10-26] MEDS: Gabapentin 300 MG CAPSULE PO SCH ×3 (08:12→22:04)
[2020-10-26] MEDS: Aspirin 81 MG TAB.CHEW PO SCH (08:12)
[2020-10-26] MEDS: atenoloL 50 MG TABLET PO SCH (08:12)
[2020-10-26] MEDS: Calcium Acetate 667 MG CAPSULE PO SCH ×3 (08:12→16:54)
[2020-10-26] MEDS: Insulin DETEMIR 100 UNIT/ML X5UNITS SUBQ SCH ×2 (08:27→22:04)
[2020-10-26] MEDS: Acetaminophen 325 MG TABLET PO PRN (08:27)
[2020-10-26] MEDS ORDERED: Iron Sucrose Complex 400 MG in 0.9 % Sodium Chloride 250 ML IVPB ONE (08:49)
[2020-10-26] MEDS ORDERED: Calcium Acetate 667 MG CAPSULE PO SCH (09:00)
[2020-10-26] MEDS ORDERED: lisinopriL 20 MG TABLET PO SCH (09:00)
[2020-10-26] MEDS ORDERED: Furosemide 20 MG TABLET PO SCH (09:00)
[2020-10-26] MEDS ORDERED: Albumin 25% 25gram/100mL 25 GM/100 ML IV.SOLN IVPB SCH ×2 (10:00→16:00)
[2020-10-26 10:18] LABS: ABG Base Excess 2 mEq/L (-2 to 3); ABG HCO3 29 mEq/L (21-27); ABG Oxygen Saturation 91 % (95-98); ABG PCO2 59 mmHg (35-45); ABG PO2 70 mmHg (85-104); ABG TCO2 31 mEq/L (20-26)
[2020-10-26] MEDS ORDERED: Furosemide 20 MG/2 ML VIAL IVP SCH ×2 (11:30→13:30)
[2020-10-26] MEDS: Albumin 25% 25gram/100mL 25 GM/100 ML IV.SOLN IVPB SCH ×2 (12:41→23:44)
[2020-10-26 22:58] LABS: Bacteria,Urine Few per hpf (None-Few); Bilirubin,Urine Negative (Negative); Blood,Urine Trace (Negative); Budding Yeast,Urine Few per hpf (None Seen); Clarity,Urine Clear (Clear); Color,Urine Light-Yellow (Yellow); Glucose,Urine (UA) Normal (Normal); Ketones,Urine Negative (Negative); Leukocyte Esterase,Urine Trace (Negative); Mucus,Urine Few per lpf (None-Few); Nitrite,Urine Negative (Negative); Protein,Urine 200 mg/dL (Neg-Trace); RBC,Urine 0-3 per hpf (0-3); Specific Gravity,Urine 1.012 (1.010-1.025); Squamous Epithelial Cell,Urine Few per hpf (None-Few); Urobilinogen,Urine Normal (Normal); WBC,Urine 15-30 per hpf (0-3)
[2020-10-26 23:06] LABS: Creatinine,Urine 38 mg/dL
[2020-10-27 01:47] LABS: Basophils # 0.1 K/mcL (0.0-0.2); Basophils % 0.8 %; Eosinophils # 0.1 K/mcL (0.0-0.6); Eosinophils % 1.7 %; Hematocrit 27.2 % (35.3-44.9); Hemoglobin 8.2 g/dL (11.5-15.4); Immature Granulocytes % 0.3 % (0-4); Lymphocytes # 1.8 K/mcL (0.6-4.6); Mean Corpuscular HGB Conc 30.1 g/dL (31.6-35.5); Mean Corpuscular Hemoglobin 27.7 pg (28.0-33.3); Mean Corpuscular Volume 91.9 fL (83.0-100.0); Mean Platelet Volume 9.5 fL (9.4-12.4); Monocytes # 0.5 K/mcL (0.0-1.3); Monocytes % 8.6 %; Neutrophils # 3.6 K/mcL (1.6-8.9); Platelet Count 255 K/mcL (140-400); Red Blood Count 2.96 M/mcL (3.82-4.97); Red Cell Distribution Width 13.4 % (11.5-14.5); Segmented Neutrophils % 59.6 %; White Blood Count 6.1 K/mcL (4.3-11.1)
[2020-10-27 02:06] LABS: Albumin 3.2 g/dL (3.5-5.7); Bilirubin,Total 0.3 mg/dL (0.3-1.0); Calcium 8.3 mg/dL (8.6-10.3); Globulin 3.2 g/dL (2.4-3.5); Phosphorous 6.2 mg/dL (2.7-4.5); Potassium 5.2 mEq/L (3.5-5.1); Total Protein 6.4 g/dL (6.4-8.9)
[2020-10-27 02:09] LABS: Uric Acid 5.9 mg/dL (2.3-7.6)
[2020-10-27] MEDS: Ipratropium/Albuterol Neb 3 ML IH SCH ×4 (03:48→22:57)
[2020-10-27 03:57] LABS: ABG Base Excess 2 mEq/L (-2 to 3); ABG HCO3 28 mEq/L (21-27); ABG Oxygen Saturation 88 % (95-98); ABG PCO2 54 mmHg (35-45); ABG PH 7.33 pH Units (7.32-7.45); ABG PO2 60 mmHg (85-104); ABG TCO2 30 mEq/L (20-26)
[2020-10-27] MEDS: *HR* Heparin 5,000 UNIT/ML VIAL SQ SCH ×2 (05:44→17:00)
[2020-10-27] MEDS: Insulin LISPRO 300 UNITS/3 ML VIAL SUBQ SCH ×4 (07:55→20:03)
[2020-10-27] MEDS: Insulin DETEMIR 100 UNIT/ML X5UNITS SUBQ SCH ×2 (07:55→20:16)
[2020-10-27] MEDS: Albumin 25% 25gram/100mL 25 GM/100 ML IV.SOLN IVPB SCH ×2 (08:03→15:31)
[2020-10-27] MEDS: Aspirin 81 MG TAB.CHEW PO SCH (08:06)
[2020-10-27] MEDS: atenoloL 50 MG TABLET PO SCH (08:06)
[2020-10-27] MEDS: amLODIPine 5 MG TABLET PO SCH (08:07)
[2020-10-27] MEDS: Gabapentin 300 MG CAPSULE PO SCH ×2 (08:07→14:07)
[2020-10-27] MEDS: Calcium Acetate 667 MG CAPSULE PO SCH ×3 (08:13→17:00)
[2020-10-27] MEDS: cefTRIAXone 1,000 MG in 0.9 % Sodium Chloride Mini Bag 100 ML IVPB SCH (09:42)
[2020-10-27] MEDS: Azithromycin 500 MG in 0.9 % Sodium Chloride 250 ML IVPB SCH (10:17)
[2020-10-27] MEDS ORDERED: Furosemide 20 MG/2 ML VIAL IVP SCH (10:45)
[2020-10-27] MEDS: Ondansetron ODT 4 MG TAB.RAPDIS SL PRN (14:15)
[2020-10-28] MEDS ORDERED: *HR* LORazepam 0.5 MG TABLET PO ONE (00:18)
[2020-10-28] MEDS: Albumin 25% 25gram/100mL 25 GM/100 ML IV.SOLN IVPB SCH ×4 (00:27→23:40)
[2020-10-28] MEDS: *HR* Heparin 5,000 UNIT/ML VIAL SQ SCH ×2 (04:38→17:04)
[2020-10-28] MEDS: Ipratropium/Albuterol Neb 3 ML IH SCH ×4 (05:42→20:03)
[2020-10-28 06:02] LABS: Calcium 9.1 mg/dL (8.6-10.3); Magnesium 2.2 mg/dL (1.6-2.6); Phosphorous 5.6 mg/dL (2.7-4.5); Potassium 5.7 mEq/L (3.5-5.1)
[2020-10-28 06:09] LABS: Basophils # 0.1 K/mcL (0.0-0.2); Basophils % 0.8 %; Eosinophils # 0.1 K/mcL (0.0-0.6); Eosinophils % 1.7 %; Hematocrit 30.3 % (35.3-44.9); Hemoglobin 9.2 g/dL (11.5-15.4); Immature Granulocytes % 0.3 % (0-4); Lymphocytes # 1.7 K/mcL (0.6-4.6); Lymphocytes % 28.2 %; Mean Corpuscular HGB Conc 30.4 g/dL (31.6-35.5); Mean Corpuscular Hemoglobin 28.5 pg (28.0-33.3); Mean Corpuscular Volume 93.8 fL (83.0-100.0); Mean Platelet Volume 10.2 fL (9.4-12.4); Monocytes # 0.5 K/mcL (0.0-1.3); Monocytes % 8.2 %; Neutrophils # 3.6 K/mcL (1.6-8.9); Platelet Count 285 K/mcL (140-400); Red Blood Count 3.23 M/mcL (3.82-4.97); Red Cell Distribution Width 13.6 % (11.5-14.5); Segmented Neutrophils % 60.8 %
[2020-10-28] MEDS: cefTRIAXone 1,000 MG in 0.9 % Sodium Chloride Mini Bag 100 ML IVPB SCH (09:04)
[2020-10-28] MEDS: Aspirin 81 MG TAB.CHEW PO SCH (09:04)
[2020-10-28] MEDS: Gabapentin 300 MG CAPSULE PO SCH ×3 (09:04→21:23)
[2020-10-28] MEDS: Calcium Acetate 667 MG CAPSULE PO SCH ×3 (09:04→17:04)
[2020-10-28] MEDS: amLODIPine 5 MG TABLET PO SCH (09:05)
[2020-10-28] MEDS: atenoloL 50 MG TABLET PO SCH (09:05)
[2020-10-28] MEDS: Insulin LISPRO 300 UNITS/3 ML VIAL SUBQ SCH ×4 (09:08→21:24)
[2020-10-28] MEDS: Insulin DETEMIR 100 UNIT/ML X5UNITS SUBQ SCH ×2 (09:20→21:24)
[2020-10-28] MEDS: SODIUM ZIRCONIUM CYCLOSILICATE 5 GM POWD.PACK PO SCH (12:29)
[2020-10-28] MEDS: *HR* HYDROcodone/Acet 5/325 mg TABLET PO PRN (21:23)
[2020-10-29 02:46] LABS: Basophils # 0.1 K/mcL (0.0-0.2); Basophils % 0.9 %; Eosinophils # 0.1 K/mcL (0.0-0.6); Eosinophils % 1.4 %; Hematocrit 27.6 % (35.3-44.9); Hemoglobin 8.3 g/dL (11.5-15.4); Immature Granulocytes % 0.3 % (0-4); Lymphocytes # 1.6 K/mcL (0.6-4.6); Lymphocytes % 27.3 %; Mean Corpuscular HGB Conc 30.1 g/dL (31.6-35.5); Mean Corpuscular Hemoglobin 28.7 pg (28.0-33.3); Mean Corpuscular Volume 95.5 fL (83.0-100.0); Mean Platelet Volume 10.1 fL (9.4-12.4); Monocytes # 0.6 K/mcL (0.0-1.3); Monocytes % 10.4 %; Neutrophils # 3.5 K/mcL (1.6-8.9); Platelet Count 245 K/mcL (140-400); Red Blood Count 2.89 M/mcL (3.82-4.97); Red Cell Distribution Width 13.5 % (11.5-14.5); Segmented Neutrophils % 59.7 %; White Blood Count 5.8 K/mcL (4.3-11.1)
[2020-10-29 03:04] LABS: Calcium 9.1 mg/dL (8.6-10.3); Potassium 5.5 mEq/L (3.5-5.1)
[2020-10-29] MEDS: *HR* Heparin 5,000 UNIT/ML VIAL SQ SCH ×2 (05:43→15:49)
[2020-10-29] MEDS: Insulin LISPRO 300 UNITS/3 ML VIAL SUBQ SCH ×4 (07:36→21:00)
[2020-10-29] MEDS: amLODIPine 5 MG TABLET PO SCH (07:49)
[2020-10-29] MEDS: Aspirin 81 MG TAB.CHEW PO SCH (07:49)
[2020-10-29] MEDS: Gabapentin 300 MG CAPSULE PO SCH ×3 (07:50→20:52)
[2020-10-29] MEDS: Insulin DETEMIR 100 UNIT/ML X5UNITS SUBQ SCH ×2 (07:50→20:53)
[2020-10-29] MEDS: atenoloL 50 MG TABLET PO SCH (07:50)
[2020-10-29] MEDS: Calcium Acetate 667 MG CAPSULE PO SCH ×3 (07:50→15:49)
[2020-10-29] MEDS: SODIUM ZIRCONIUM CYCLOSILICATE 5 GM POWD.PACK PO SCH (07:50)
[2020-10-29] MEDS: Ipratropium/Albuterol Neb 3 ML IH PRN ×2 (08:41→21:10)
[2020-10-29] MEDS: Albumin 25% 25gram/100mL 25 GM/100 ML IV.SOLN IVPB SCH (08:42)
[2020-10-29] MEDS ORDERED: Furosemide 40 MG/4 ML VIAL IVP ONE (13:11)
[2020-10-29] MEDS: *HR* HYDROcodone/Acet 5/325 mg TABLET PO PRN (13:46)
[2020-10-29 16:25] LABS: ABG Base Excess -1 mEq/L (-2 to 3); ABG HCO3 27 mEq/L (21-27); ABG Oxygen Saturation 88 % (95-98); ABG PCO2 57 mmHg (35-45); ABG PH 7.29 pH Units (7.32-7.45); ABG PO2 63 mmHg (85-104); ABG TCO2 29 mEq/L (20-26)
[2020-10-30] MEDS ORDERED: *HR* LORazepam 0.5 MG TABLET PO ONE (04:52)
[2020-10-30 05:02] LABS: ABG Base Excess 2 mEq/L (-2 to 3); ABG HCO3 30 mEq/L (21-27); ABG Oxygen Saturation 89 % (95-98); ABG PCO2 62 mmHg (35-45); ABG PH 7.29 pH Units (7.32-7.45); ABG PO2 66 mmHg (85-104); ABG TCO2 31 mEq/L (20-26)
[2020-10-30] MEDS: *HR* Heparin 5,000 UNIT/ML VIAL SQ SCH ×2 (05:02→16:23)
[2020-10-30 06:44] LABS: Basophils # 0.1 K/mcL (0.0-0.2); Eosinophils # 0.1 K/mcL (0.0-0.6); Eosinophils % 1.4 %; Hemoglobin 9.1 g/dL (11.5-15.4); Immature Granulocytes % 0.2 % (0-4); Lymphocytes # 1.3 K/mcL (0.6-4.6); Lymphocytes % 22.8 %; Mean Corpuscular HGB Conc 29.4 g/dL (31.6-35.5); Mean Corpuscular Hemoglobin 28.3 pg (28.0-33.3); Mean Corpuscular Volume 96.3 fL (83.0-100.0); Mean Platelet Volume 10.3 fL (9.4-12.4); Monocytes # 0.6 K/mcL (0.0-1.3); Monocytes % 10.3 %; Neutrophils # 3.7 K/mcL (1.6-8.9); Platelet Count 265 K/mcL (140-400); Red Blood Count 3.22 M/mcL (3.82-4.97); Red Cell Distribution Width 13.4 % (11.5-14.5); Segmented Neutrophils % 64.3 %; White Blood Count 5.8 K/mcL (4.3-11.1)
[2020-10-30 07:19] LABS: Calcium 9.1 mg/dL (8.6-10.3); Potassium 5.5 mEq/L (3.5-5.1)
[2020-10-30] MEDS: atenoloL 50 MG TABLET PO SCH (08:33)
[2020-10-30] MEDS: Calcium Acetate 667 MG CAPSULE PO SCH ×3 (08:33→16:23)
[2020-10-30] MEDS: Gabapentin 300 MG CAPSULE PO SCH ×3 (08:34→20:03)
[2020-10-30] MEDS: SODIUM ZIRCONIUM CYCLOSILICATE 5 GM POWD.PACK PO SCH (08:35)
[2020-10-30] MEDS: Insulin LISPRO 300 UNITS/3 ML VIAL SUBQ SCH ×4 (08:35→19:58)
[2020-10-30] MEDS: amLODIPine 5 MG TABLET PO SCH (08:35)
[2020-10-30] MEDS: Insulin DETEMIR 100 UNIT/ML X5UNITS SUBQ SCH ×2 (08:36→20:03)
[2020-10-30] MEDS: Aspirin 81 MG TAB.CHEW PO SCH (08:39)
[2020-10-30] MEDS: Furosemide 240 MG in 0.9 % Sodium Chloride 96 ML IVC SCH (12:04)
[2020-10-30] MEDS: *HR* HYDROcodone/Acet 5/325 mg TABLET PO PRN ×2 (12:13→20:02)
[2020-10-30 17:34] LABS: Calcium 9.3 mg/dL (8.6-10.3); Potassium 5.8 mEq/L (3.5-5.1)
[2020-10-30 23:34] LABS: Sodium, Urine 44.2 mEq/L
[2020-10-31 00:15] LABS: Bacteria,Urine Few per hpf (None-Few); Bilirubin,Urine Negative (Negative); Blood,Urine Large (Negative); Clarity,Urine Turbid (Clear); Color,Urine Light-Orange (Yellow); Glucose,Urine (UA) Normal (Normal); Hyaline Casts,Urine Moderate per lpf (None Seen); Ketones,Urine Negative (Negative); Leukocyte Esterase,Urine Moderate (Negative); Mucus,Urine Few per lpf (None-Few); Nitrite,Urine Negative (Negative); Protein,Urine 200 mg/dL (Neg-Trace); RBC,Urine TNTC per hpf (0-3); Specific Gravity,Urine 1.013 (1.010-1.025); Squamous Epithelial Cell,Urine Few per hpf (None-Few); Urobilinogen,Urine Normal (Normal); WBC,Urine TNTC per hpf (0-3)
[2020-10-31] MEDS: cefTRIAXone 1,000 MG in Water for inj. (sterile) 10 ML IVP SCH (01:07)
[2020-10-31 02:18] LABS: Basophils # 0.1 K/mcL (0.0-0.2); Basophils % 1.2 %; Eosinophils # 0.1 K/mcL (0.0-0.6); Eosinophils % 1.5 %; Hematocrit 28.5 % (35.3-44.9); Hemoglobin 8.5 g/dL (11.5-15.4); Immature Granulocytes % 0.5 % (0-4); Lymphocytes # 1.8 K/mcL (0.6-4.6); Lymphocytes % 31.4 %; Mean Corpuscular HGB Conc 29.8 g/dL (31.6-35.5); Mean Corpuscular Hemoglobin 28.1 pg (28.0-33.3); Mean Corpuscular Volume 94.4 fL (83.0-100.0); Mean Platelet Volume 10.3 fL (9.4-12.4); Monocytes # 0.6 K/mcL (0.0-1.3); Monocytes % 10.5 %; Neutrophils # 3.2 K/mcL (1.6-8.9); Platelet Count 233 K/mcL (140-400); Red Blood Count 3.02 M/mcL (3.82-4.97); Red Cell Distribution Width 13.8 % (11.5-14.5); Segmented Neutrophils % 54.9 %; White Blood Count 5.8 K/mcL (4.3-11.1)
[2020-10-31 02:38] LABS: Calcium 8.8 mg/dL (8.6-10.3); Phosphorous 7.2 mg/dL (2.7-4.5); Potassium 6.2 mEq/L (3.5-5.1)
[2020-10-31] MEDS: *HR* HYDROcodone/Acet 5/325 mg TABLET PO PRN ×2 (03:43→22:03)
[2020-10-31] MEDS: *HR* Heparin 5,000 UNIT/ML VIAL SQ SCH ×2 (05:49→16:54)
[2020-10-31] MEDS: Insulin LISPRO 300 UNITS/3 ML VIAL SUBQ SCH ×3 (08:58→16:55)
[2020-10-31] MEDS: Calcium Acetate 667 MG CAPSULE PO SCH ×3 (09:00→16:54)
[2020-10-31] MEDS: Insulin DETEMIR 100 UNIT/ML X5UNITS SUBQ SCH ×2 (09:00→22:04)
[2020-10-31] MEDS: SODIUM ZIRCONIUM CYCLOSILICATE 5 GM POWD.PACK PO SCH (09:01)
[2020-10-31] MEDS: amLODIPine 5 MG TABLET PO SCH (09:01)
[2020-10-31] MEDS: Aspirin 81 MG TAB.CHEW PO SCH (09:01)
[2020-10-31] MEDS: Gabapentin 300 MG CAPSULE PO SCH ×4 (09:24→22:04)
[2020-10-31] MEDS: Furosemide 240 MG in 0.9 % Sodium Chloride 96 ML IVC SCH (10:06)
[2020-10-31] MEDS ORDERED: Chlorothiazide Sodium 500 MG VIAL IVP ONE (11:25)
[2020-11-01 01:02] LABS: Basophils % 0.7 %; Eosinophils # 0.1 K/mcL (0.0-0.6); Eosinophils % 1.6 %; Hematocrit 28.2 % (35.3-44.9); Hemoglobin 8.4 g/dL (11.5-15.4); Immature Granulocytes % 0.3 % (0-4); Lymphocytes # 1.6 K/mcL (0.6-4.6); Mean Corpuscular HGB Conc 29.8 g/dL (31.6-35.5); Mean Corpuscular Hemoglobin 27.8 pg (28.0-33.3); Mean Corpuscular Volume 93.4 fL (83.0-100.0); Mean Platelet Volume 10.2 fL (9.4-12.4); Monocytes # 0.6 K/mcL (0.0-1.3); Monocytes % 9.6 %; Neutrophils # 3.4 K/mcL (1.6-8.9); Platelet Count 240 K/mcL (140-400); Red Blood Count 3.02 M/mcL (3.82-4.97); Red Cell Distribution Width 13.7 % (11.5-14.5); Segmented Neutrophils % 59.8 %; White Blood Count 5.7 K/mcL (4.3-11.1)
[2020-11-01 01:20] LABS: Magnesium 2.1 mg/dL (1.6-2.6); Phosphorous 7.1 mg/dL (2.7-4.5)
[2020-11-01 01:22] LABS: Calcium 9.1 mg/dL (8.6-10.3); Potassium 5.9 mEq/L (3.5-5.1)
[2020-11-01] MEDS: Insulin LISPRO 300 UNITS/3 ML VIAL SUBQ SCH ×4 (03:41→16:52)
[2020-11-01] MEDS: *HR* Heparin 5,000 UNIT/ML VIAL SQ SCH ×2 (06:27→16:49)
[2020-11-01] MEDS: *HR* HYDROcodone/Acet 5/325 mg TABLET PO PRN (06:27)
[2020-11-01] MEDS: Ondansetron ODT 4 MG TAB.RAPDIS SL PRN (06:27)
[2020-11-01] MEDS: Calcium Acetate 667 MG CAPSULE PO SCH ×3 (09:04→16:48)
[2020-11-01] MEDS: Aspirin 81 MG TAB.CHEW PO SCH (09:04)
[2020-11-01] MEDS: cefTRIAXone 1,000 MG in Water for inj. (sterile) 10 ML IVP SCH (09:05)
[2020-11-01] MEDS: SODIUM ZIRCONIUM CYCLOSILICATE 5 GM POWD.PACK PO SCH (09:05)
[2020-11-01] MEDS: Gabapentin 300 MG CAPSULE PO SCH ×3 (09:05→22:03)
[2020-11-01] MEDS: Insulin DETEMIR 100 UNIT/ML X5UNITS SUBQ SCH (09:07)
[2020-11-01] MEDS: Sennosides/Docusate Sodium TABLET PO SCH ×2 (10:00→22:03)
[2020-11-01] MEDS: metOLazone 2.5 MG TABLET PO SCH (10:00)
[2020-11-01] MEDS ORDERED: *HR* Promethazine 25 MG/ML VIAL IM ONE (10:57)
[2020-11-01 11:07] LABS: Complement C3 146 mg/dL (87-200)
[2020-11-01] MEDS ORDERED: Prochlorperazine 10 MG/2 ML VIAL IVP ONE (13:15)
[2020-11-01] MEDS: Furosemide 240 MG in 0.9 % Sodium Chloride 96 ML IVC SCH (15:18)
[2020-11-02] MEDS: Insulin LISPRO 300 UNITS/3 ML VIAL SUBQ SCH ×5 (00:42→20:59)
[2020-11-02] MEDS: Insulin DETEMIR 100 UNIT/ML X5UNITS SUBQ SCH ×4 (00:43→20:47)
[2020-11-02] MEDS: *HR* Heparin 5,000 UNIT/ML VIAL SQ SCH ×2 (06:27→18:41)
[2020-11-02 08:35] LABS: Basophils # 0.1 K/mcL (0.0-0.2); Basophils % 0.8 %; Eosinophils # 0.1 K/mcL (0.0-0.6); Eosinophils % 0.8 %; Hematocrit 27.9 % (35.3-44.9); Hemoglobin 8.4 g/dL (11.5-15.4); Immature Granulocytes % 0.2 % (0-4); Lymphocytes # 0.9 K/mcL (0.6-4.6); Lymphocytes % 15.4 %; Mean Corpuscular HGB Conc 30.1 g/dL (31.6-35.5); Mean Corpuscular Hemoglobin 28.4 pg (28.0-33.3); Mean Corpuscular Volume 94.3 fL (83.0-100.0); Mean Platelet Volume 10.6 fL (9.4-12.4); Monocytes # 0.7 K/mcL (0.0-1.3); Monocytes % 11.3 %; Neutrophils # 4.4 K/mcL (1.6-8.9); Platelet Count 245 K/mcL (140-400); Red Blood Count 2.96 M/mcL (3.82-4.97); Red Cell Distribution Width 13.7 % (11.5-14.5); Segmented Neutrophils % 71.5 %; White Blood Count 6.1 K/mcL (4.3-11.1)
[2020-11-02 09:04] LABS: Potassium 5.3 mEq/L (3.5-5.1)
[2020-11-02] MEDS: Sennosides/Docusate Sodium TABLET PO SCH ×2 (10:54→20:43)
[2020-11-02] MEDS: Aspirin 81 MG TAB.CHEW PO SCH (10:54)
[2020-11-02] MEDS: metOLazone 2.5 MG TABLET PO SCH (10:54)
[2020-11-02] MEDS: Calcium Acetate 667 MG CAPSULE PO SCH ×3 (10:54→18:40)
[2020-11-02] MEDS: Gabapentin 300 MG CAPSULE PO SCH ×3 (10:55→20:43)
[2020-11-02] MEDS: SODIUM ZIRCONIUM CYCLOSILICATE 5 GM POWD.PACK PO SCH (10:56)
[2020-11-02] MEDS: Furosemide 240 MG in 0.9 % Sodium Chloride 96 ML IVC SCH (10:56)
[2020-11-02] MEDS: *HR* HYDROcodone/Acet 5/325 mg TABLET PO PRN (20:46)
[2020-11-03 03:48] LABS: Basophils # 0.1 K/mcL (0.0-0.2); Basophils % 1.1 %; Eosinophils # 0.1 K/mcL (0.0-0.6); Eosinophils % 1.1 %; Hematocrit 27.4 % (35.3-44.9); Hemoglobin 8.4 g/dL (11.5-15.4); Immature Granulocytes % 0.2 % (0-4); Lymphocytes # 1.3 K/mcL (0.6-4.6); Lymphocytes % 19.2 %; Mean Corpuscular HGB Conc 30.7 g/dL (31.6-35.5); Mean Corpuscular Hemoglobin 28.6 pg (28.0-33.3); Mean Corpuscular Volume 93.2 fL (83.0-100.0); Mean Platelet Volume 10.6 fL (9.4-12.4); Monocytes # 0.8 K/mcL (0.0-1.3); Monocytes % 12.7 %; Neutrophils # 4.4 K/mcL (1.6-8.9); Platelet Count 226 K/mcL (140-400); Red Blood Count 2.94 M/mcL (3.82-4.97); Red Cell Distribution Width 13.9 % (11.5-14.5); Segmented Neutrophils % 65.7 %; White Blood Count 6.6 K/mcL (4.3-11.1)
[2020-11-03 04:03] LABS: Phosphorous 6.2 mg/dL (2.7-4.5); Potassium 4.5 mEq/L (3.5-5.1)
[2020-11-03] MEDS: *HR* Heparin 5,000 UNIT/ML VIAL SQ SCH ×2 (05:27→16:41)
[2020-11-03 05:46] LABS: Lambda Qnt Free Light Chains 64.57 mg/L (5.71-26.30)
[2020-11-03] MEDS: Insulin LISPRO 300 UNITS/3 ML VIAL SUBQ SCH ×4 (09:00→20:50)
[2020-11-03] MEDS: Calcium Acetate 667 MG CAPSULE PO SCH ×3 (09:43→16:40)
[2020-11-03] MEDS: Sennosides/Docusate Sodium TABLET PO SCH ×2 (09:43→20:49)
[2020-11-03] MEDS: SODIUM ZIRCONIUM CYCLOSILICATE 5 GM POWD.PACK PO SCH (09:43)
[2020-11-03] MEDS: metOLazone 2.5 MG TABLET PO SCH (09:43)
[2020-11-03] MEDS: Aspirin 81 MG TAB.CHEW PO SCH (09:44)
[2020-11-03] MEDS: Gabapentin 300 MG CAPSULE PO SCH ×3 (09:44→20:50)
[2020-11-03] MEDS: Insulin DETEMIR 100 UNIT/ML X5UNITS SUBQ SCH (09:49)
[2020-11-03 10:14] LABS: Kappa Qnt Free Light Chains 120.14 mg/L (3.30-19.40)
[2020-11-03] MEDS: Furosemide 240 MG in 0.9 % Sodium Chloride 96 ML IVC SCH (11:43)
[2020-11-03 14:46] LABS: ANA IgG by ELISA NONE DETECTED (None Detected); Serine Protease-3 Antibody 0 AU/mL (0-19)
[2020-11-03] MEDS: *HR* HYDROcodone/Acet 5/325 mg TABLET PO PRN (19:56)
[2020-11-03] MEDS: Ondansetron 4 MG/2 ML VIAL IVP PRN (20:50)
[2020-11-04] MEDS: *HR* HYDROcodone/Acet 5/325 mg TABLET PO PRN ×3 (03:34→21:55)
[2020-11-04 04:31] LABS: Albumin 3.4 g/dL (3.5-5.7); Phosphorous 5.7 mg/dL (2.7-4.5); Potassium 4.4 mEq/L (3.5-5.1)
[2020-11-04] MEDS: *HR* Heparin 5,000 UNIT/ML VIAL SQ SCH ×2 (05:11→17:44)
[2020-11-04] MEDS: Calcium Acetate 667 MG CAPSULE PO SCH ×3 (08:50→17:43)
[2020-11-04] MEDS: Gabapentin 300 MG CAPSULE PO SCH ×3 (08:50→21:39)
[2020-11-04] MEDS: Sennosides/Docusate Sodium TABLET PO SCH ×2 (08:50→21:40)
[2020-11-04] MEDS: Furosemide 40 MG TABLET PO SCH (08:50)
[2020-11-04] MEDS: Aspirin 81 MG TAB.CHEW PO SCH (08:51)
[2020-11-04] MEDS: SODIUM ZIRCONIUM CYCLOSILICATE 5 GM POWD.PACK PO SCH (08:51)
[2020-11-04] MEDS: Insulin DETEMIR 100 UNIT/ML X5UNITS SUBQ SCH ×2 (09:06→21:39)
[2020-11-04] MEDS: Insulin LISPRO 300 UNITS/3 ML VIAL SUBQ SCH ×4 (09:08→21:39)
[2020-11-05 05:50] LABS: Calcium 9.3 mg/dL (8.6-10.3); Potassium 4.4 mEq/L (3.5-5.1)
[2020-11-05] MEDS: *HR* Heparin 5,000 UNIT/ML VIAL SQ SCH ×2 (05:54→17:00)
[2020-11-05] MEDS: Insulin LISPRO 300 UNITS/3 ML VIAL SUBQ SCH ×4 (07:44→20:45)
[2020-11-05] MEDS: Sennosides/Docusate Sodium TABLET PO SCH ×2 (08:07→20:46)
[2020-11-05] MEDS: Calcium Acetate 667 MG CAPSULE PO SCH ×3 (08:07→16:47)
[2020-11-05] MEDS: *HR* HYDROcodone/Acet 5/325 mg TABLET PO PRN ×2 (08:07→18:51)
[2020-11-05] MEDS: Aspirin 81 MG TAB.CHEW PO SCH (08:08)
[2020-11-05] MEDS: Insulin DETEMIR 100 UNIT/ML X5UNITS SUBQ SCH ×2 (08:08→20:45)
[2020-11-05] MEDS: Furosemide 40 MG TABLET PO SCH (08:08)
[2020-11-05] MEDS: Gabapentin 300 MG CAPSULE PO SCH ×3 (08:08→20:46)
[2020-11-05] MEDS: SODIUM ZIRCONIUM CYCLOSILICATE 5 GM POWD.PACK PO SCH (08:08)
[2020-11-05] MEDS ORDERED: *HR* LORazepam 0.5 MG TABLET PO ONE (14:08)
[2020-11-05 20:25] LABS: Alpha 2 Globulin (PEP) 0.86 g/dL (0.48-1.05); Beta Globulin (PEP) 0.63 g/dL (0.48-1.10)
[2020-11-06] MEDS: *HR* HYDROcodone/Acet 5/325 mg TABLET PO PRN (00:57)
[2020-11-06 05:10] LABS: Calcium 9.6 mg/dL (8.6-10.3); Potassium 4.4 mEq/L (3.5-5.1)
[2020-11-06] MEDS: *HR* Heparin 5,000 UNIT/ML VIAL SQ SCH (06:35)
[2020-11-06 08:29] LABS: IFE Reflexed IFE Done; Immunoglobulin G 1197 mg/dL (768-1632); Immunoglobulin M 194 mg/dL (35-263)
[2020-11-06 08:30] LABS: Immunoglobulin A 137 mg/dL (68-408)
[2020-11-06] MEDS: Sennosides/Docusate Sodium TABLET PO SCH (10:19)
[2020-11-06] MEDS: Gabapentin 300 MG CAPSULE PO SCH (10:19)
[2020-11-06] MEDS: Aspirin 81 MG TAB.CHEW PO SCH (10:20)
[2020-11-06] MEDS: Insulin LISPRO 300 UNITS/3 ML VIAL SUBQ SCH ×2 (10:20→12:36)
[2020-11-06] MEDS: Calcium Acetate 667 MG CAPSULE PO SCH ×2 (10:20→12:35)
[2020-11-06] MEDS: Furosemide 40 MG TABLET PO SCH (10:20)
[2020-11-06] MEDS: SODIUM ZIRCONIUM CYCLOSILICATE 5 GM POWD.PACK PO SCH (10:21)
[2020-11-06] MEDS: Insulin DETEMIR 100 UNIT/ML X5UNITS SUBQ SCH (10:24)
[2020-11-06 11:25] VITALS: BP 168/73
[2020-11-06] MEDS ORDERED: amLODIPine 5 MG TABLET PO SCH (11:30)
[2020-11-06] MEDS: Ondansetron 4 MG/2 ML VIAL IVP PRN (12:40)
[2020-11-06] MEDS ORDERED: *HR* LORazepam 0.5 MG TABLET PO PRN (13:06)
== END 2020-11-06 13:51 | DRG 193 ==
LOC: 3BNU 21:03 → EMEROOARM 21:03 → SUATTDRO 10-24 03:00 → 3BNU 10-24 04:18 → SUATTDRO 10-25 13:57 → 2ANU 10-31 18:39
PROVIDERS: ADMIT Internal Medicine; ATTEND Student in an Organized Health Care Education/Training Program

== ENCOUNTER 2021-04-14 21:02 | Inpatient (IN) ==
[2021-04-15] MEDS ORDERED: Melatonin 3 MG TABLET PO PRN (00:05)
[2021-04-15] MEDS ORDERED: Ondansetron 4 MG/2 ML VIAL IVP PRN (00:05)
[2021-04-15] MEDS ORDERED: Acetaminophen 325 MG TABLET PO PRN (00:05)
[2021-04-15] MEDS ORDERED: Naloxone 0.4 MG/ML INJ IVP PRN (00:05)
[2021-04-15 01:13] LABS: Hematocrit 34.4 % (35.3-44.9); Hemoglobin 10.7 g/dL (11.5-15.4); Mean Corpuscular HGB Conc 31.1 g/dL (31.6-35.5); Mean Corpuscular Hemoglobin 26.5 pg (28.0-33.3); Mean Corpuscular Volume 85.1 fL (83.0-100.0); Platelet Count 245 K/mcL (140-400); Red Blood Count 4.04 M/mcL (3.82-4.97); Red Cell Distribution Width 15.7 % (11.5-14.5); White Blood Count 10.9 K/mcL (4.3-11.1)
[2021-04-15 01:22] LABS: Heparin anti-factor XA UFH < 0.04 IU/mL (0.30-0.70)
[2021-04-15] MEDS ORDERED: *HR* Heparin 5,000 UNIT/ML VIAL IVP PRN ×2 (01:39)
[2021-04-15] MEDS ORDERED: *HR* Heparin 5,000 UNIT/ML VIAL IVP ONE (01:39)
[2021-04-15] MEDS: Heparin 25,000UNIT/250ML 1/2NS 25,000 UNIT/250 ML IV.SOLN IVC SCH ×2 (02:12→23:18)
[2021-04-15] MEDS ORDERED: Dextrose Gel 15 GM/37.5 ML TUBE PO PRN ×2 (07:24)
[2021-04-15] MEDS ORDERED: *HR* Dextrose 50 % in Water (Vial) 50 ML VIAL IVP PRN (07:24)
[2021-04-15] MEDS ORDERED: D5% in Water 1,000 ML IVC PRN (07:24)
[2021-04-15] MEDS ORDERED: Perflutren Lipid Microsphere 1.3 ML in 0.9 % Sodium Chloride 8.7 ML IVP PRN (07:26)
[2021-04-15] MEDS ORDERED: 0.9 % Sodium Chloride 1,000 ML IVC ONE (07:28)
[2021-04-15 07:59] LABS: Albumin 2.7 g/dL (3.5-5.7); Bilirubin,Total 0.3 mg/dL (0.3-1.0); Calcium 5.9 mg/dL (8.6-10.3); Globulin 2.7 g/dL (2.4-3.5); Magnesium 1.5 mg/dL (1.6-2.6); Phosphorous 5.8 mg/dL (2.7-4.5); Potassium 3.9 mEq/L (3.5-5.1); Total Protein 5.4 g/dL (6.4-8.9); Troponin I 0.55 ng/mL (< 0.04)
[2021-04-15] MEDS ORDERED: hydrOXYzine pamoate 25 MG CAPSULE PO PRN (09:45)
[2021-04-15] MEDS ORDERED: *HR* LORazepam 0.5 MG TABLET PO PRN (09:45)
[2021-04-15] MEDS: Calcium Gluconate 1gm/50mL 1 GM/50 ML BAG IVPB SCH ×3 (10:02→13:05)
[2021-04-15] MEDS: *HR* OxyCODONE/APAP 5/325 TABLET PO PRN ×2 (10:12→22:26)
[2021-04-15] MEDS: Insulin LISPRO 300 UNITS/3 ML VIAL SUBQ SCH ×2 (11:44→18:38)
[2021-04-15] MEDS: Gabapentin 300 MG CAPSULE PO SCH ×2 (13:07→21:04)
[2021-04-15] MEDS: atenoloL 50 MG TABLET PO SCH (22:26)
[2021-04-15] MEDS: amLODIPine 5 MG TABLET PO SCH (22:27)
[2021-04-16] MEDS: Insulin LISPRO 300 UNITS/3 ML VIAL SUBQ SCH ×5 (00:03→21:49)
[2021-04-16] MEDS: amLODIPine 5 MG TABLET PO SCH (09:57)
[2021-04-16] MEDS: Gabapentin 300 MG CAPSULE PO SCH ×2 (09:57→14:41)
[2021-04-16] MEDS: atenoloL 50 MG TABLET PO SCH (09:57)
[2021-04-16] MEDS: Aspirin 81 MG TAB.CHEW PO SCH (09:57)
[2021-04-16] MEDS ORDERED: Gabapentin 300 MG CAPSULE PO SCH (15:00)
[2021-04-16] MEDS: hydrALAZINE 25 MG TABLET PO SCH ×2 (16:35→23:17)
[2021-04-16] MEDS: Heparin 25,000UNIT/250ML 1/2NS 25,000 UNIT/250 ML IV.SOLN IVC SCH (22:43)
[2021-04-17] MEDS ORDERED: carvediloL 6.25 MG TABLET PO SCH (08:00)
[2021-04-17] MEDS: Gabapentin 300 MG CAPSULE PO SCH (08:02)
[2021-04-17] MEDS: Aspirin 81 MG TAB.CHEW PO SCH (08:03)
[2021-04-17] MEDS: hydrALAZINE 25 MG TABLET PO SCH (08:03)
[2021-04-17] MEDS: Insulin LISPRO 300 UNITS/3 ML VIAL SUBQ SCH ×4 (08:04→20:10)
[2021-04-17] MEDS ORDERED: Isosorbide MONOnitrate (24 HR) 30 MG TAB.ER.24H PO SCH (09:00)
[2021-04-17] MEDS ORDERED: amLODIPine 5 MG TABLET PO SCH (09:00)
[2021-04-17 09:50] LABS: Albumin 2.8 g/dL (3.5-5.7); Bilirubin,Total 0.3 mg/dL (0.3-1.0); Calcium 6.6 mg/dL (8.6-10.3); Globulin 2.8 g/dL (2.4-3.5); Potassium 4.6 mEq/L (3.5-5.1); Total Protein 5.6 g/dL (6.4-8.9)
[2021-04-17] MEDS ORDERED: 0.9 % Sodium Chloride 500 ML ONE ×3 (11:22→18:53)
[2021-04-17] MEDS ORDERED: 0.9 % Sodium Chloride 500 ML IVC ONE ×4 (11:30→18:52)
[2021-04-17] MEDS: Calcium Gluconate 1gm/50mL 1 GM/50 ML BAG IVPB SCH ×2 (12:57→13:42)
[2021-04-17] MEDS: Heparin 25,000UNIT/250ML 1/2NS 25,000 UNIT/250 ML IV.SOLN IVC SCH (22:01)
[2021-04-18 02:43] LABS: Basophils % 0.3 %; Eosinophils # 0.1 K/mcL (0.0-0.6); Eosinophils % 1.1 %; Immature Granulocytes % 0.6 % (0-4); Lymphocytes # 2.3 K/mcL (0.6-4.6); Lymphocytes % 21.9 %; Mean Corpuscular HGB Conc 30.7 g/dL (31.6-35.5); Mean Corpuscular Hemoglobin 26.7 pg (28.0-33.3); Mean Corpuscular Volume 86.8 fL (83.0-100.0); Mean Platelet Volume 10.7 fL (9.4-12.4); Monocytes # 0.7 K/mcL (0.0-1.3); Monocytes % 6.2 %; Neutrophils # 7.4 K/mcL (1.6-8.9); Platelet Count 276 K/mcL (140-400); Red Blood Count 3.11 M/mcL (3.82-4.97); Red Cell Distribution Width 15.8 % (11.5-14.5); Segmented Neutrophils % 69.9 %; White Blood Count 10.6 K/mcL (4.3-11.1)
[2021-04-18 02:48] LABS: Hemoglobin 8.3 g/dL (11.5-15.4)
[2021-04-18 03:02] LABS: Albumin 2.6 g/dL (3.5-5.7); Albumin/Globulin Ratio 0.9 (1.1-2.2); Bilirubin,Total 0.3 mg/dL (0.3-1.0); Calcium 6.7 mg/dL (8.6-10.3); Globulin 2.9 g/dL (2.4-3.5); Total Protein 5.5 g/dL (6.4-8.9)
[2021-04-18] MEDS: Aspirin 81 MG TAB.CHEW PO SCH (08:12)
[2021-04-18] MEDS: Insulin LISPRO 300 UNITS/3 ML VIAL SUBQ SCH ×4 (08:12→21:30)
[2021-04-18] MEDS ORDERED: amLODIPine 5 MG TABLET PO SCH (09:00)
[2021-04-18] MEDS: *HR* OxyCODONE/APAP 5/325 TABLET PO PRN (13:01)
[2021-04-18] MEDS ORDERED: Calcium Gluconate 1gm/50mL 1 GM/50 ML BAG IVPB ONE (16:17)
[2021-04-18] MEDS: Gabapentin 300 MG CAPSULE PO SCH (21:31)
[2021-04-19 03:10] LABS: Basophils % 0.5 %; Eosinophils # 0.1 K/mcL (0.0-0.6); Eosinophils % 1.5 %; Hematocrit 31.6 % (35.3-44.9); Immature Granulocytes % 0.5 % (0-4); Lymphocytes # 1.6 K/mcL (0.6-4.6); Lymphocytes % 19.9 %; Mean Corpuscular HGB Conc 32.6 g/dL (31.6-35.5); Mean Corpuscular Hemoglobin 27.5 pg (28.0-33.3); Mean Corpuscular Volume 84.3 fL (83.0-100.0); Mean Platelet Volume 9.2 fL (9.4-12.4); Monocytes # 0.5 K/mcL (0.0-1.3); Monocytes % 6.6 %; Neutrophils # 5.8 K/mcL (1.6-8.9); Platelet Count 289 K/mcL (140-400); Red Blood Count 3.75 M/mcL (3.82-4.97); Red Cell Distribution Width 15.7 % (11.5-14.5); White Blood Count 8.1 K/mcL (4.3-11.1)
[2021-04-19 03:11] LABS: Hemoglobin 10.3 g/dL (11.5-15.4)
[2021-04-19 07:23] VITALS: BP 168/83; PULSE 72; TEMP 97.8; O2SAT 94
[2021-04-19] MEDS: Insulin LISPRO 300 UNITS/3 ML VIAL SUBQ SCH ×2 (07:36→11:27)
[2021-04-19] MEDS ORDERED: carvediloL 6.25 MG TABLET PO SCH (08:00)
[2021-04-19] MEDS ORDERED: amLODIPine 5 MG TABLET PO SCH (09:00)
[2021-04-19] MEDS: Aspirin 81 MG TAB.CHEW PO SCH (09:28)
[2021-04-19] MEDS: Gabapentin 300 MG CAPSULE PO SCH (09:28)
== END 2021-04-19 13:55 | disposition home health service (06) | DRG 309 ==
LOC: 2NENU
PROVIDERS: ADMIT Internal Medicine; ATTEND Internal Medicine

== ENCOUNTER 2021-07-04 15:45 | Inpatient (IN) ==
[2021-07-04] MEDS ORDERED: D5% in Water 1,000 ML IVC PRN (17:56)
[2021-07-04] MEDS ORDERED: *HR* Dextrose 50 % in Water (Syg) 50 ML SYRINGE IVP PRN (17:56)
[2021-07-04] MEDS ORDERED: Dextrose Gel 15 GM/37.5 ML TUBE PO PRN ×2 (17:56)
[2021-07-04] MEDS ORDERED: *HR* HYDROcodone/Acet 5/325 mg TABLET PO PRN (17:57)
[2021-07-04] MEDS ORDERED: Naloxone 0.4 MG/ML INJ IVP PRN (18:11)
[2021-07-04 18:39] LABS: Hematocrit 23.7 % (35.3-44.9); Hemoglobin 7.3 g/dL (11.5-15.4)
[2021-07-04 18:56] LABS: Calcium 6.5 mg/dL (8.6-10.3); Potassium 5.8 mEq/L (3.5-5.1)
[2021-07-04] MEDS: *HR* HYDROcodone/Acet 10/325 mg TABLET PO PRN (20:44)
[2021-07-04] MEDS: Pantoprazole 40 MG VIAL IVP SCH (20:45)
[2021-07-04] MEDS ORDERED: Insulin LISPRO 300 UNITS/3 ML VIAL SUBQ SCH (21:00)
[2021-07-04] MEDS: Cefepime HCl 2,000 MG in 0.9 % Sodium Chloride Mini Bag 100 ML IVPB SCH (22:29)
[2021-07-04] MEDS ORDERED: *HR* HYDROcodone/Acet 5/325 mg TABLET PO ONE (22:43)
[2021-07-05 00:27] LABS: Hematocrit 24.1 % (35.3-44.9)
[2021-07-05 00:28] LABS: Basophils % 0.3 %; Eosinophils # 0.1 K/mcL (0.0-0.6); Eosinophils % 0.7 %; Hematocrit 23.6 % (35.3-44.9); Hemoglobin 7.1 g/dL (11.5-15.4); Immature Granulocytes % 1.4 % (0-4); Lymphocytes # 1.8 K/mcL (0.6-4.6); Lymphocytes % 11.8 %; Mean Corpuscular HGB Conc 30.1 g/dL (31.6-35.5); Mean Corpuscular Hemoglobin 27.1 pg (28.0-33.3); Mean Corpuscular Volume 90.1 fL (83.0-100.0); Mean Platelet Volume 9.7 fL (9.4-12.4); Monocytes # 1.1 K/mcL (0.0-1.3); Monocytes % 7.2 %; Neutrophils # 12.1 K/mcL (1.6-8.9); Nucleated Red Blood Cells 0.1 /100 WBC (0); Platelet Count 262 K/mcL (140-400); Red Blood Count 2.62 M/mcL (3.82-4.97); Red Cell Distribution Width 15.3 % (11.5-14.5); Segmented Neutrophils % 78.6 %; White Blood Count 15.4 K/mcL (4.3-11.1)
[2021-07-05 00:47] LABS: Calcium 6.2 mg/dL (8.6-10.3); Magnesium 2.2 mg/dL (1.6-2.6); Potassium 6.4 mEq/L (3.5-5.1)
[2021-07-05] MEDS ORDERED: Insulin LISPRO 300 UNITS/3 ML VIAL SUBQ SCH (07:30)
[2021-07-05] MEDS ORDERED: Furosemide 20 MG/2 ML VIAL IVP ONE (07:52)
[2021-07-05] MEDS ORDERED: 0.9 % Sodium Chloride 250 ML IVC SCH (08:00)
[2021-07-05] MEDS ORDERED: Insulin Human Regular 10 UNIT in 0.9 % Sodium Chloride 10 ML IV ONE (08:31)
[2021-07-05] MEDS ORDERED: *HR* Dextrose 50 % in Water (Syg) 50 ML SYRINGE IVP ONE (08:33)
[2021-07-05] MEDS: Pantoprazole 40 MG VIAL IVP SCH ×2 (08:38→20:55)
[2021-07-05 08:45] LABS: Basophils % 0.1 %; Eosinophils # 0.1 K/mcL (0.0-0.6); Eosinophils % 0.7 %; Hemoglobin 7.4 g/dL (11.5-15.4); Immature Granulocytes % 1.4 % (0-4); Lymphocytes # 1.8 K/mcL (0.6-4.6); Lymphocytes % 11.6 %; Mean Corpuscular HGB Conc 30.8 g/dL (31.6-35.5); Mean Corpuscular Hemoglobin 27.7 pg (28.0-33.3); Mean Corpuscular Volume 89.9 fL (83.0-100.0); Mean Platelet Volume 9.9 fL (9.4-12.4); Monocytes # 1.1 K/mcL (0.0-1.3); Monocytes % 7.3 %; Platelet Count 302 K/mcL (140-400); Red Blood Count 2.67 M/mcL (3.82-4.97); Red Cell Distribution Width 15.3 % (11.5-14.5); Segmented Neutrophils % 78.9 %; White Blood Count 15.2 K/mcL (4.3-11.1)
[2021-07-05] MEDS ORDERED: Calcium Gluconate 1gm/50mL 1 GM/50 ML BAG IVPB ONE (10:11)
[2021-07-05 11:43] LABS: Albumin 2.6 g/dL (3.5-5.7); Albumin/Globulin Ratio 0.7 (1.1-2.2); Bilirubin,Direct 0.2 mg/dL (0.0-0.2); Bilirubin,Indirect 0.3 mg/dL (0.0-1.0); Bilirubin,Total 0.5 mg/dL (0.3-1.0); Globulin 3.5 g/dL (2.4-3.5); Total Protein 6.1 g/dL (6.4-8.9)
[2021-07-05] MEDS: Insulin LISPRO 300 UNITS/3 ML VIAL SUBQ SCH ×3 (11:55→23:40)
[2021-07-05] MEDS: *HR* HYDROcodone/Acet 10/325 mg TABLET PO PRN (13:32)
[2021-07-05] MEDS ORDERED: SODIUM CHLORIDE/NAHCO3/KCL/PEG 4,000 ML SOLN.RECON PO ONE (17:00)
[2021-07-05] MEDS: Cefepime HCl 2,000 MG in 0.9 % Sodium Chloride Mini Bag 100 ML IVPB SCH (19:36)
[2021-07-05] MEDS ORDERED: Vancomycin 1,750 MG/517.5 ML IV.SOLN IVPB SCH (21:00)
[2021-07-05 21:29] LABS: Basophils # 0.1 K/mcL (0.0-0.2); Basophils % 0.3 %; Eosinophils # 0.1 K/mcL (0.0-0.6); Eosinophils % 0.3 %; Hematocrit 26.6 % (35.3-44.9); Hemoglobin 8.1 g/dL (11.5-15.4); Immature Granulocytes % 2.4 % (0-4); Lymphocytes # 1.1 K/mcL (0.6-4.6); Lymphocytes % 6.3 %; Mean Corpuscular HGB Conc 30.5 g/dL (31.6-35.5); Mean Corpuscular Hemoglobin 27.3 pg (28.0-33.3); Mean Corpuscular Volume 89.6 fL (83.0-100.0); Mean Platelet Volume 9.8 fL (9.4-12.4); Monocytes % 5.8 %; Neutrophils # 14.6 K/mcL (1.6-8.9); Platelet Count 318 K/mcL (140-400); Red Blood Count 2.97 M/mcL (3.82-4.97); Red Cell Distribution Width 15.4 % (11.5-14.5); Segmented Neutrophils % 84.9 %; White Blood Count 17.2 K/mcL (4.3-11.1)
[2021-07-05] MEDS ORDERED: Vancomycin 500 MG in 0.9 % Sodium Chloride Mini Bag 100 ML IVPB ONE (22:07)
[2021-07-06 03:07] LABS: Calcium 6.3 mg/dL (8.6-10.3); Potassium 5.9 mEq/L (3.5-5.1)
[2021-07-06 03:26] LABS: Hematocrit 25.2 % (35.3-44.9); Hemoglobin 7.8 g/dL (11.5-15.4); Mean Corpuscular Volume 90.3 fL (83.0-100.0); Mean Platelet Volume 9.9 fL (9.4-12.4); Platelet Count 330 K/mcL (140-400); Red Blood Count 2.79 M/mcL (3.82-4.97); Red Cell Distribution Width 15.5 % (11.5-14.5); White Blood Count 19.4 K/mcL (4.3-11.1)
[2021-07-06] MEDS: *HR* HYDROcodone/Acet 10/325 mg TABLET PO PRN ×2 (04:53→19:32)
[2021-07-06] MEDS: Pantoprazole 40 MG VIAL IVP SCH ×2 (07:51→20:14)
[2021-07-06] MEDS: Insulin LISPRO 300 UNITS/3 ML VIAL SUBQ SCH ×3 (07:56→20:08)
[2021-07-06] MEDS ORDERED: Ondansetron 4 MG/2 ML VIAL ONE (08:15)
[2021-07-06] MEDS ORDERED: *HR* Rocuronium Bromide 50 MG/5 ML VIAL ONE (08:15)
[2021-07-06] MEDS ORDERED: *HR* Propofol 200 MG/20 ML VIAL IVP ONE (08:15)
[2021-07-06] MEDS ORDERED: *HR* Succinylcholine 200 MG/10 ML VIAL IVP ONE (08:15)
[2021-07-06] MEDS ORDERED: *HR* FentaNYL (PF) 100 MCG/2 ML VIAL ONE (08:15)
[2021-07-06] MEDS ORDERED: Lidocaine -MPF 2% 5 ML VIAL ONE (08:15)
[2021-07-06] MEDS ORDERED: Ondansetron 4 MG/2 ML VIAL IVP PRN (08:22)
[2021-07-06] MEDS ORDERED: *HR* FentaNYL (PF) 100 MCG/2 ML VIAL IVP PRN (08:22)
[2021-07-06] MEDS ORDERED: *HR* OxyCODONE Immed Rel 5 MG TABLET PO PRN (08:22)
[2021-07-06] MEDS ORDERED: Ringers Solution, Lactated 1,000 ML IVC SCH (08:30)
[2021-07-06] MEDS ORDERED: *HR* Midazolam HCl 2 MG/2 ML VIAL ONE (08:35)
[2021-07-06] MEDS ORDERED: Lidocaine HCL 4 ML Topical Solution (Laryng-O-Jet Kit Sterile Pak) TP ONE (08:37)
[2021-07-06] MEDS ORDERED: Ipratropium/Albuterol Neb 3 ML ONE (10:59)
[2021-07-06] MEDS: Ipratropium/Albuterol Neb 3 ML IH SCH ×3 (11:10→20:32)
[2021-07-06] MEDS ORDERED: Furosemide 20 MG/2 ML VIAL IVP ONE (11:22)
[2021-07-06] MEDS: DAPTOmycin 450 MG in 0.9 % Sodium Chloride 100 ML IVPB SCH (14:04)
[2021-07-06] MEDS ORDERED: 0.9 % Sodium Chloride 1,000 ML IV ONE (15:36)
[2021-07-06] MEDS: carvediloL 6.25 MG TABLET PO SCH (15:53)
[2021-07-06] MEDS: metroNIDAZOLE 500 MG TABLET PO SCH ×2 (15:53→20:14)
[2021-07-06] MEDS: Ondansetron 4 MG/2 ML VIAL IVP PRN (19:20)
[2021-07-06] MEDS: Cefepime HCl 2,000 MG in 0.9 % Sodium Chloride Mini Bag 100 ML IVPB SCH (20:12)
[2021-07-06] MEDS: *HR* HYDROmorphone (PF) 1 MG/ML SYRINGE IVP PRN (23:57)
[2021-07-07] MEDS: Insulin LISPRO 300 UNITS/3 ML VIAL SUBQ SCH ×4 (00:42→21:18)
[2021-07-07] MEDS: Ipratropium/Albuterol Neb 3 ML IH SCH ×4 (04:02→20:50)
[2021-07-07] MEDS: *HR* HYDROmorphone (PF) 1 MG/ML SYRINGE IVP PRN ×2 (04:20→21:00)
[2021-07-07 05:12] LABS: Hemoglobin 7.3 g/dL (11.5-15.4); Mean Corpuscular HGB Conc 31.7 g/dL (31.6-35.5); Mean Corpuscular Hemoglobin 27.9 pg (28.0-33.3); Mean Corpuscular Volume 87.8 fL (83.0-100.0); Mean Platelet Volume 9.5 fL (9.4-12.4); Platelet Count 355 K/mcL (140-400); Red Blood Count 2.62 M/mcL (3.82-4.97); Red Cell Distribution Width 15.4 % (11.5-14.5); White Blood Count 19.6 K/mcL (4.3-11.1)
[2021-07-07] MEDS: *HR* HYDROcodone/Acet 10/325 mg TABLET PO PRN ×3 (05:15→16:17)
[2021-07-07 05:35] LABS: Potassium 5.9 mEq/L (3.5-5.1)
[2021-07-07] MEDS ORDERED: Calcium Gluconate 1gm/50mL 1 GM/50 ML BAG IVPB ONE ×2 (05:42→14:06)
[2021-07-07] MEDS: carvediloL 6.25 MG TABLET PO SCH ×2 (07:56→16:09)
[2021-07-07] MEDS: metroNIDAZOLE 500 MG TABLET PO SCH ×3 (07:56→21:06)
[2021-07-07] MEDS: Pantoprazole 40 MG VIAL IVP SCH ×2 (07:57→21:05)
[2021-07-07] MEDS: Cefepime HCl 2,000 MG in 0.9 % Sodium Chloride Mini Bag 100 ML IVPB SCH (21:05)
[2021-07-08] MEDS: Insulin LISPRO 300 UNITS/3 ML VIAL SUBQ SCH ×4 (00:45→18:21)
[2021-07-08 01:49] LABS: Hematocrit 25.2 % (35.3-44.9); Hemoglobin 7.7 g/dL (11.5-15.4); Mean Corpuscular HGB Conc 30.6 g/dL (31.6-35.5); Mean Corpuscular Hemoglobin 27.1 pg (28.0-33.3); Mean Corpuscular Volume 88.7 fL (83.0-100.0); Mean Platelet Volume 9.8 fL (9.4-12.4); Platelet Count 355 K/mcL (140-400); Red Blood Count 2.84 M/mcL (3.82-4.97); Red Cell Distribution Width 15.5 % (11.5-14.5); White Blood Count 15.4 K/mcL (4.3-11.1)
[2021-07-08 02:09] LABS: Calcium 6.4 mg/dL (8.6-10.3)
[2021-07-08] MEDS: Ipratropium/Albuterol Neb 3 ML IH SCH ×4 (04:35→20:06)
[2021-07-08] MEDS ORDERED: *HR* Dextrose 50 % in Water (Syg) 50 ML SYRINGE IVP ONE (08:02)
[2021-07-08] MEDS ORDERED: Calcium Gluconate 1,000 MG/10 ML VIAL IVP ONE (08:04)
[2021-07-08] MEDS ORDERED: Insulin Regular, Human 100 UNIT/ML IV ONE (08:05)
[2021-07-08] MEDS ORDERED: Calcium Gluconate 1gm/50mL 1 GM/50 ML BAG IVPB ONE (09:05)
[2021-07-08] MEDS ORDERED: Insulin Human Regular 10 UNIT in 0.9 % Sodium Chloride 10 ML IV ONE (09:15)
[2021-07-08] MEDS: Pantoprazole 40 MG VIAL IVP SCH ×2 (09:41→21:05)
[2021-07-08] MEDS: carvediloL 6.25 MG TABLET PO SCH ×2 (09:42→16:03)
[2021-07-08] MEDS: metroNIDAZOLE 500 MG TABLET PO SCH ×3 (09:42→21:06)
[2021-07-08] MEDS ORDERED: SODIUM ZIRCONIUM CYCLOSILICATE 5 GM POWD.PACK PO ONE (12:41)
[2021-07-08] MEDS: DAPTOmycin 450 MG in 0.9 % Sodium Chloride 100 ML IVPB SCH (13:28)
[2021-07-08] MEDS: Sodium Bicarbonate 75 MEQ in 0.45 % Sodium Chloride 1,000 ML IVC SCH (14:22)
[2021-07-08 16:20] LABS: Protein/Creatinine Ratio,Urine 0.88 mg/mg (0.00-0.20); Sodium, Urine 41.8 mEq/L
[2021-07-08] MEDS ORDERED: Perflutren Lipid Microsphere 1.3 ML in 0.9 % Sodium Chloride 8.7 ML IVP PRN (16:34)
[2021-07-08] MEDS: Cefepime HCl 2,000 MG in 0.9 % Sodium Chloride Mini Bag 100 ML IVPB SCH (21:06)
[2021-07-09] MEDS: Insulin LISPRO 300 UNITS/3 ML VIAL SUBQ SCH ×3 (00:26→15:38)
[2021-07-09] MEDS: *HR* HYDROcodone/Acet 10/325 mg TABLET PO PRN ×2 (00:34→13:06)
[2021-07-09] MEDS: Ipratropium/Albuterol Neb 3 ML IH SCH ×4 (03:58→20:28)
[2021-07-09 06:02] LABS: Calcium 6.4 mg/dL (8.6-10.3); Phosphorous 5.4 mg/dL (2.7-4.5); Potassium 5.1 mEq/L (3.5-5.1); Uric Acid 10.1 mg/dL (2.3-7.6)
[2021-07-09 06:28] LABS: Hepatitis B Surface Antigen Nonreactive (Nonreactive)
[2021-07-09] MEDS: Sodium Bicarbonate 75 MEQ in 0.45 % Sodium Chloride 1,000 ML IVC SCH ×2 (06:38→17:52)
[2021-07-09 06:56] LABS: Hepatitis B Core IgM Nonreactive (Nonreactive)
[2021-07-09 06:57] LABS: Hepatitis C Virus Antibody Nonreactive (Nonreactive)
[2021-07-09 06:59] LABS: Hepatitis A Antibody IgM Nonreactive (Nonreactive)
[2021-07-09] MEDS: carvediloL 6.25 MG TABLET PO SCH ×2 (08:07→15:35)
[2021-07-09] MEDS: metroNIDAZOLE 500 MG TABLET PO SCH ×3 (08:09→21:52)
[2021-07-09] MEDS: Pantoprazole 40 MG VIAL IVP SCH (08:10)
[2021-07-09] MEDS: *HR* HYDROmorphone (PF) 1 MG/ML SYRINGE IVP PRN (08:36)
[2021-07-09] MEDS: Ondansetron 4 MG/2 ML VIAL IVP PRN (08:38)
[2021-07-09 10:19] LABS: Basophils # 0.1 K/mcL (0.0-0.2); Basophils % 0.3 %; Eosinophils # 0.1 K/mcL (0.0-0.6); Hematocrit 24.9 % (35.3-44.9); Hemoglobin 7.8 g/dL (11.5-15.4); Lymphocytes # 1.4 K/mcL (0.6-4.6); Lymphocytes % 9.5 %; Mean Corpuscular HGB Conc 31.3 g/dL (31.6-35.5); Mean Corpuscular Hemoglobin 27.5 pg (28.0-33.3); Mean Corpuscular Volume 87.7 fL (83.0-100.0); Mean Platelet Volume 9.6 fL (9.4-12.4); Monocytes # 0.9 K/mcL (0.0-1.3); Monocytes % 5.9 %; Neutrophils # 11.4 K/mcL (1.6-8.9); Platelet Count 415 K/mcL (140-400); Red Blood Count 2.84 M/mcL (3.82-4.97); Red Cell Distribution Width 15.2 % (11.5-14.5); Segmented Neutrophils % 79.3 %; White Blood Count 14.3 K/mcL (4.3-11.1)
[2021-07-09] MEDS: Cefepime HCl 2,000 MG in 0.9 % Sodium Chloride Mini Bag 100 ML IVPB SCH ×2 (10:25→21:51)
[2021-07-09] MEDS: DAPTOmycin 450 MG in 0.9 % Sodium Chloride 100 ML IVPB SCH (11:54)
[2021-07-10] MEDS: *HR* HYDROcodone/Acet 10/325 mg TABLET PO PRN ×4 (01:48→21:29)
[2021-07-10] MEDS: Sodium Bicarbonate 75 MEQ in 0.45 % Sodium Chloride 1,000 ML IVC SCH ×2 (01:55→21:40)
[2021-07-10] MEDS: Ipratropium/Albuterol Neb 3 ML IH SCH ×4 (03:02→20:38)
[2021-07-10 03:48] LABS: Hematocrit 24.3 % (35.3-44.9); Hemoglobin 7.5 g/dL (11.5-15.4); Mean Corpuscular HGB Conc 30.9 g/dL (31.6-35.5); Mean Corpuscular Hemoglobin 27.2 pg (28.0-33.3); Mean Platelet Volume 9.4 fL (9.4-12.4); Platelet Count 415 K/mcL (140-400); Red Blood Count 2.76 M/mcL (3.82-4.97); Red Cell Distribution Width 15.4 % (11.5-14.5); White Blood Count 13.1 K/mcL (4.3-11.1)
[2021-07-10 04:11] LABS: Calcium 6.4 mg/dL (8.6-10.3)
[2021-07-10] MEDS: Insulin LISPRO 300 UNITS/3 ML VIAL SUBQ SCH ×3 (07:24→17:57)
[2021-07-10] MEDS: Ondansetron 4 MG/2 ML VIAL IVP PRN ×2 (08:21→23:52)
[2021-07-10] MEDS: carvediloL 6.25 MG TABLET PO SCH ×2 (08:29→16:35)
[2021-07-10] MEDS ORDERED: Famotidine 20 MG/2 ML VIAL IVP ONE (09:41)
[2021-07-10] MEDS ORDERED: Acetaminophen IV 1,000 MG/100 ML BAG IVPB ONE (09:42)
[2021-07-10] MEDS ORDERED: Lidocaine -MPF 2% 5 ML VIAL ONE (09:46)
[2021-07-10] MEDS ORDERED: *HR* Propofol 200 MG/20 ML VIAL IVP ONE (09:46)
[2021-07-10] MEDS ORDERED: *HR* FentaNYL (PF) 100 MCG/2 ML VIAL ONE (09:46)
[2021-07-10] MEDS ORDERED: Ondansetron 4 MG/2 ML VIAL ONE (09:46)
[2021-07-10] MEDS ORDERED: *HR* Succinylcholine 200 MG/10 ML VIAL IVP ONE (10:04)
[2021-07-10] MEDS ORDERED: Bupivacaine-MPF 0.25% 10 ML VIAL ONE (10:04)
[2021-07-10] MEDS ORDERED: Lidocaine -MPF 4% 5 ML AMPUL ONE (10:06)
[2021-07-10] MEDS ORDERED: Albumin Human 5% 0 GM/0 ML IV.SOLN ONE (10:09)
[2021-07-10] MEDS: Cefepime HCl 2,000 MG in 0.9 % Sodium Chloride Mini Bag 100 ML IVPB SCH ×2 (10:35→21:42)
[2021-07-10] MEDS: metroNIDAZOLE 500 MG TABLET PO SCH ×3 (11:20→21:29)
[2021-07-10] MEDS ORDERED: Ondansetron 4 MG/2 ML VIAL IVP PRN (12:07)
[2021-07-10] MEDS: DAPTOmycin 450 MG in 0.9 % Sodium Chloride 100 ML IVPB SCH (12:56)
[2021-07-10 13:35] LABS: Hematocrit 26.5 % (35.3-44.9); Mean Corpuscular HGB Conc 30.2 g/dL (31.6-35.5); Mean Corpuscular Hemoglobin 27.2 pg (28.0-33.3); Mean Corpuscular Volume 90.1 fL (83.0-100.0); Mean Platelet Volume 9.3 fL (9.4-12.4); Platelet Count 404 K/mcL (140-400); Red Blood Count 2.94 M/mcL (3.82-4.97); Red Cell Distribution Width 15.4 % (11.5-14.5); White Blood Count 12.6 K/mcL (4.3-11.1)
[2021-07-10] MEDS: amLODIPine 5 MG TABLET PO SCH ×2 (15:04→16:36)
[2021-07-10] MEDS: Gabapentin 300 MG CAPSULE PO SCH ×2 (15:13→21:29)
[2021-07-11] MEDS: Ipratropium/Albuterol Neb 3 ML IH SCH ×4 (04:24→20:41)
[2021-07-11 05:24] LABS: Hemoglobin 7.4 g/dL (11.5-15.4); Mean Corpuscular HGB Conc 29.6 g/dL (31.6-35.5); Mean Corpuscular Hemoglobin 26.8 pg (28.0-33.3); Mean Corpuscular Volume 90.6 fL (83.0-100.0); Mean Platelet Volume 9.2 fL (9.4-12.4); Platelet Count 406 K/mcL (140-400); Red Blood Count 2.76 M/mcL (3.82-4.97); Red Cell Distribution Width 15.3 % (11.5-14.5)
[2021-07-11 05:44] LABS: BUN/Creatinine Ratio 37 (6-26); Blood Urea Nitrogen 37 mg/dL (8-23); Calcium 6.5 mg/dL (8.6-10.3); Carbon Dioxide 24 mEq/L (23-29); Chloride 109 mEq/L (98-107); Glucose 110 mg/dL (70-105); Osmolality,Calculated 299 (280-300); Potassium 4.7 mEq/L (3.5-5.1); Sodium 140 mEq/L (136-145); eGFR For African Americans > 60 (> 60); eGFR For Non-African Americans 56 (> 60)
[2021-07-11] MEDS: Insulin LISPRO 300 UNITS/3 ML VIAL SUBQ SCH ×3 (07:45→17:35)
[2021-07-11] MEDS: Calcium Gluconate 1gm/50mL 1 GM/50 ML BAG IVPB SCH ×2 (08:35→09:52)
[2021-07-11] MEDS: metroNIDAZOLE 500 MG TABLET PO SCH ×2 (08:36→14:07)
[2021-07-11] MEDS: carvediloL 6.25 MG TABLET PO SCH ×2 (08:36→17:22)
[2021-07-11] MEDS: Gabapentin 300 MG CAPSULE PO SCH ×3 (08:36→19:35)
[2021-07-11] MEDS: *HR* HYDROcodone/Acet 10/325 mg TABLET PO PRN ×2 (10:40→22:21)
[2021-07-11] MEDS: Cefepime HCl 2,000 MG in 0.9 % Sodium Chloride Mini Bag 100 ML IVPB SCH (10:40)
[2021-07-11] MEDS: DAPTOmycin 450 MG in 0.9 % Sodium Chloride 100 ML IVPB SCH (12:37)
[2021-07-11] MEDS: Sodium Bicarbonate 75 MEQ in 0.45 % Sodium Chloride 1,000 ML IVC SCH (12:37)
[2021-07-11] MEDS ORDERED: Isovue-370 500 ML BOTTLE IVP ONE (14:14)
[2021-07-11] MEDS: Meropenem 1,000 MG in Water for inj. (sterile) 20 ML IVP SCH (17:22)
[2021-07-11] MEDS: Ondansetron 4 MG/2 ML VIAL IVP PRN (17:28)
[2021-07-12] MEDS: Meropenem 1,000 MG in Water for inj. (sterile) 20 ML IVP SCH ×4 (00:01→23:23)
[2021-07-12] MEDS: Ipratropium/Albuterol Neb 3 ML IH SCH (04:13)
[2021-07-12] MEDS ORDERED: Ipratropium/Albuterol Neb 3 ML IH PRN (04:20)
[2021-07-12 05:14] LABS: Basophils # 0.1 K/mcL (0.0-0.2); Basophils % 0.6 %; Eosinophils # 0.2 K/mcL (0.0-0.6); Eosinophils % 1.3 %; Hematocrit 24.2 % (35.3-44.9); Hemoglobin 7.1 g/dL (11.5-15.4); Immature Granulocytes % 3.6 % (0-4); Lymphocytes # 1.9 K/mcL (0.6-4.6); Lymphocytes % 12.3 %; Mean Corpuscular HGB Conc 29.3 g/dL (31.6-35.5); Mean Corpuscular Hemoglobin 26.9 pg (28.0-33.3); Mean Corpuscular Volume 91.7 fL (83.0-100.0); Mean Platelet Volume 9.4 fL (9.4-12.4); Monocytes # 0.8 K/mcL (0.0-1.3); Monocytes % 5.3 %; Neutrophils # 12.1 K/mcL (1.6-8.9); Platelet Count 415 K/mcL (140-400); Red Blood Count 2.64 M/mcL (3.82-4.97); Red Cell Distribution Width 15.5 % (11.5-14.5); Segmented Neutrophils % 76.9 %; White Blood Count 15.7 K/mcL (4.3-11.1)
[2021-07-12 05:31] LABS: Calcium 6.5 mg/dL (8.6-10.3); Magnesium 2.1 mg/dL (1.6-2.6); Phosphorous 3.2 mg/dL (2.7-4.5); Potassium 4.5 mEq/L (3.5-5.1)
[2021-07-12] MEDS ORDERED: *HR* Heparin 10,000 UNIT/10 ML VIAL ONE (06:35)
[2021-07-12] MEDS ORDERED: Heparin 1,000 UNITS/500 mL 500 ML ONE (06:35)
[2021-07-12] MEDS ORDERED: 0.9 % Sodium Chloride 1,000 ML ONE ×2 (06:35→07:04)
[2021-07-12] MEDS ORDERED: *HR* Midazolam HCl 2 MG/2 ML VIAL ONE (07:07)
[2021-07-12] MEDS ORDERED: *HR* FentaNYL (PF) 100 MCG/2 ML VIAL ONE (07:35)
[2021-07-12] MEDS ORDERED: Acetaminophen 325 MG TABLET PO PRN (07:58)
[2021-07-12] MEDS: Insulin LISPRO 300 UNITS/3 ML VIAL SUBQ SCH ×3 (09:34→16:52)
[2021-07-12] MEDS: Gabapentin 300 MG CAPSULE PO SCH ×3 (09:35→20:43)
[2021-07-12] MEDS: carvediloL 6.25 MG TABLET PO SCH ×2 (09:35→17:03)
[2021-07-12] MEDS: amLODIPine 5 MG TABLET PO SCH (09:35)
[2021-07-12] MEDS: Calcium Gluconate 1gm/50mL 1 GM/50 ML BAG IVPB SCH ×2 (09:36→10:31)
[2021-07-12] MEDS: *HR* Acetylcysteine 20% 600 MG/3 ML ORAL SYRINGE PO SCH ×2 (10:30→20:56)
[2021-07-12] MEDS: Insulin DETEMIR 100 UNIT/ML X5UNITS SUBQ SCH ×2 (10:30→20:43)
[2021-07-12] MEDS: *HR* HYDROcodone/Acet 10/325 mg TABLET PO PRN ×2 (12:19→23:23)
[2021-07-12] MEDS: Sodium Bicarbonate 75 MEQ in 0.45 % Sodium Chloride 1,000 ML IVC SCH (15:45)
[2021-07-13 01:53] LABS: Basophils # 0.1 K/mcL (0.0-0.2); Basophils % 0.5 %; Eosinophils # 0.2 K/mcL (0.0-0.6); Eosinophils % 1.4 %; Hematocrit 23.7 % (35.3-44.9); Hemoglobin 7.1 g/dL (11.5-15.4); Immature Granulocytes % 2.7 % (0-4); Lymphocytes # 2.1 K/mcL (0.6-4.6); Lymphocytes % 13.8 %; Mean Corpuscular Hemoglobin 27.7 pg (28.0-33.3); Mean Corpuscular Volume 92.6 fL (83.0-100.0); Mean Platelet Volume 9.4 fL (9.4-12.4); Monocytes # 0.9 K/mcL (0.0-1.3); Monocytes % 6.1 %; Neutrophils # 11.5 K/mcL (1.6-8.9); Platelet Count 427 K/mcL (140-400); Red Blood Count 2.56 M/mcL (3.82-4.97); Red Cell Distribution Width 15.6 % (11.5-14.5); Segmented Neutrophils % 75.5 %; White Blood Count 15.3 K/mcL (4.3-11.1)
[2021-07-13 02:16] LABS: Calcium 6.6 mg/dL (8.6-10.3); Magnesium 1.9 mg/dL (1.6-2.6); Phosphorous 2.9 mg/dL (2.7-4.5); Potassium 4.8 mEq/L (3.5-5.1)
[2021-07-13] MEDS ORDERED: Chloraseptic Spray 177 ML BOTTLE MM PRN ×2 (05:42→21:08)
[2021-07-13] MEDS: Sodium Bicarbonate 75 MEQ in 0.45 % Sodium Chloride 1,000 ML IVC SCH ×2 (05:58→21:06)
[2021-07-13] MEDS: Insulin DETEMIR 100 UNIT/ML X5UNITS SUBQ SCH (08:44)
[2021-07-13] MEDS: carvediloL 6.25 MG TABLET PO SCH ×2 (08:47→20:55)
[2021-07-13] MEDS: Gabapentin 300 MG CAPSULE PO SCH ×2 (08:48→20:55)
[2021-07-13] MEDS: amLODIPine 5 MG TABLET PO SCH (08:49)
[2021-07-13] MEDS: Meropenem 1,000 MG in Water for inj. (sterile) 20 ML IVP SCH ×2 (08:49→17:43)
[2021-07-13] MEDS ORDERED: *HR* LORazepam 2 MG/ML VIAL IVP PRN ×2 (09:26→21:08)
[2021-07-13] MEDS: Insulin LISPRO 300 UNITS/3 ML VIAL SUBQ SCH ×3 (09:46→20:55)
[2021-07-13] MEDS ORDERED: *HR* HYDROcodone/Acet 10/325 mg TABLET PO PRN (15:08)
[2021-07-13] MEDS ORDERED: Albuterol 2.5 MG/3 ML NEBULIZER IH PRN (15:08)
[2021-07-13] MEDS ORDERED: Ondansetron 4 MG/2 ML VIAL IVP PRN ×2 (15:08→21:08)
[2021-07-13] MEDS ORDERED: Vancomycin 1,000 MG VIAL ONE (15:41)
[2021-07-13] MEDS ORDERED: *HR* FentaNYL (PF) 100 MCG/2 ML VIAL ONE (15:46)
[2021-07-13] MEDS ORDERED: Lidocaine -MPF 2% 5 ML VIAL ONE (15:46)
[2021-07-13] MEDS ORDERED: Ondansetron 4 MG/2 ML VIAL ONE (15:46)
[2021-07-13] MEDS ORDERED: *HR* Rocuronium Bromide 50 MG/5 ML VIAL ONE (15:46)
[2021-07-13] MEDS ORDERED: *HR* Propofol 200 MG/20 ML VIAL IVP ONE (15:47)
[2021-07-13] MEDS ORDERED: Lidocaine HCL 4 ML Topical Solution (Laryng-O-Jet Kit Sterile Pak) TP ONE (15:51)
[2021-07-13] MEDS ORDERED: Sugammadex Sodium 200 MG/2 ML VIAL IV ONE (19:02)
[2021-07-13] MEDS ORDERED: *HR* HYDROMORPHONE 2 MG/ML VIAL ONE (19:21)
[2021-07-13] MEDS: *HR* HYDROmorphone PF 0.5 MG/0.5 ML SYRINGE IVP PRN ×2 (19:41→19:52)
[2021-07-13] MEDS ORDERED: Perflutren Lipid Microsphere 1.3 ML in 0.9 % Sodium Chloride 8.7 ML IVP PRN (21:08)
[2021-07-13] MEDS ORDERED: *HR* Dextrose 50 % in Water (Syg) 50 ML SYRINGE IVP PRN (21:08)
[2021-07-13] MEDS ORDERED: *HR* OxyCODONE/APAP 5/325 TABLET PO PRN (21:08)
[2021-07-13] MEDS ORDERED: D5% in Water 1,000 ML IVC PRN (21:08)
[2021-07-13] MEDS ORDERED: Dextrose Gel 15 GM/37.5 ML TUBE PO PRN ×2 (21:08)
[2021-07-13] MEDS ORDERED: 0.9 % Sodium Chloride 250 ML IVC SCH (21:08)
[2021-07-13] MEDS ORDERED: Ipratropium/Albuterol Neb 3 ML IH PRN (21:08)
[2021-07-13] MEDS ORDERED: Naloxone 0.4 MG/ML INJ IVP PRN (21:08)
[2021-07-14] MEDS: *HR* OxyCODONE/APAP 7.5/325 TABLET PO PRN ×2 (01:17→20:41)
[2021-07-14] MEDS: Meropenem 1,000 MG in Water for inj. (sterile) 20 ML IVP SCH ×3 (01:18→15:21)
[2021-07-14 01:29] LABS: Basophils % 0.4 %; Eosinophils % 0.2 %; Hematocrit 20.4 % (35.3-44.9); Hemoglobin 6.2 g/dL (11.5-15.4); Immature Granulocytes % 2.8 % (0-4); Lymphocytes # 0.7 K/mcL (0.6-4.6); Lymphocytes % 4.7 %; Mean Corpuscular HGB Conc 30.4 g/dL (31.6-35.5); Mean Corpuscular Hemoglobin 28.3 pg (28.0-33.3); Mean Corpuscular Volume 93.2 fL (83.0-100.0); Mean Platelet Volume 9.3 fL (9.4-12.4); Monocytes % 1.5 %; Neutrophils # 12.8 K/mcL (1.6-8.9); Platelet Count 441 K/mcL (140-400); Red Blood Count 2.19 M/mcL (3.82-4.97); Red Cell Distribution Width 15.7 % (11.5-14.5); Segmented Neutrophils % 90.4 %; White Blood Count 14.2 K/mcL (4.3-11.1)
[2021-07-14 01:30] LABS: Basophils # 0.1 K/mcL (0.0-0.2); Monocytes # 0.2 K/mcL (0.0-1.3)
[2021-07-14 02:04] LABS: BUN/Creatinine Ratio 29 (6-26); Blood Urea Nitrogen 29 mg/dL (8-23); Calcium 6.3 mg/dL (8.6-10.3); Carbon Dioxide 29 mEq/L (23-29); Chloride 103 mEq/L (98-107); Glucose 210 mg/dL (70-105); Magnesium 1.8 mg/dL (1.6-2.6); Osmolality,Calculated 296 (280-300); Phosphorous 3.7 mg/dL (2.7-4.5); Potassium 5.7 mEq/L (3.5-5.1); Sodium 137 mEq/L (136-145); eGFR For African Americans > 60 (> 60); eGFR For Non-African Americans 56 (> 60)
[2021-07-14] MEDS: *HR* HYDROcodone/Acet 10/325 mg TABLET PO PRN ×3 (03:22→18:50)
[2021-07-14] MEDS: Insulin LISPRO 300 UNITS/3 ML VIAL SUBQ SCH ×3 (08:44→17:29)
[2021-07-14] MEDS: *HR* OxyCODONE/APAP 10/325 TABLET PO PRN ×2 (08:45→14:14)
[2021-07-14] MEDS: Gabapentin 300 MG CAPSULE PO SCH ×3 (08:45→20:24)
[2021-07-14] MEDS: amLODIPine 5 MG TABLET PO SCH (08:45)
[2021-07-14] MEDS: carvediloL 6.25 MG TABLET PO SCH ×2 (08:45→17:38)
[2021-07-14] MEDS: Insulin DETEMIR 100 UNIT/ML X5UNITS SUBQ SCH ×2 (08:46→20:25)
[2021-07-14] MEDS ORDERED: *HR* HYDROmorphone (PF) 1 MG/ML SYRINGE IVP ONE (09:26)
[2021-07-15 00:42] LABS: Basophils % 0.2 %; Monocytes % 6.2 %; Segmented Neutrophils % 70.4 %
[2021-07-15 00:43] LABS: Eosinophils # 0.1 K/mcL (0.0-0.6); Eosinophils % 0.8 %; Hematocrit 17.5 % (35.3-44.9); Immature Granulocytes % 1.7 % (0-4); Lymphocytes # 2.6 K/mcL (0.6-4.6); Lymphocytes % 20.7 %; Mean Corpuscular HGB Conc 29.1 g/dL (31.6-35.5); Mean Corpuscular Hemoglobin 27.6 pg (28.0-33.3); Mean Corpuscular Volume 94.6 fL (83.0-100.0); Monocytes # 0.8 K/mcL (0.0-1.3); Neutrophils # 8.9 K/mcL (1.6-8.9); Platelet Count 377 K/mcL (140-400); Red Blood Count 1.85 M/mcL (3.82-4.97); Red Cell Distribution Width 16.1 % (11.5-14.5); White Blood Count 12.6 K/mcL (4.3-11.1)
[2021-07-15] MEDS: *HR* HYDROcodone/Acet 10/325 mg TABLET PO PRN ×4 (00:49→22:14)
[2021-07-15] MEDS: Meropenem 1,000 MG in Water for inj. (sterile) 20 ML IVP SCH ×3 (00:49→15:04)
[2021-07-15 00:50] LABS: Hemoglobin 5.1 g/dL (11.5-15.4)
[2021-07-15 01:02] LABS: Calcium 5.9 mg/dL (8.6-10.3); Magnesium 1.9 mg/dL (1.6-2.6); Phosphorous 3.5 mg/dL (2.7-4.5); Potassium 5.7 mEq/L (3.5-5.1)
[2021-07-15 01:05] LABS: Hypochromasia Present (Not Present)
[2021-07-15 01:06] LABS: Platelet Estimate Normal (Normal)
[2021-07-15] MEDS: Calcium Gluconate 1gm/50mL 1 GM/50 ML BAG IVPB SCH ×5 (01:09→11:30)
[2021-07-15 07:02] LABS: Basophils # 0.1 K/mcL (0.0-0.2); Basophils % 0.4 %; Eosinophils # 0.1 K/mcL (0.0-0.6); Eosinophils % 0.9 %; Hemoglobin 6.6 g/dL (11.5-15.4); Immature Granulocytes % 1.5 % (0-4); Lymphocytes # 2.4 K/mcL (0.6-4.6); Lymphocytes % 18.5 %; Mean Corpuscular Hemoglobin 28.1 pg (28.0-33.3); Mean Corpuscular Volume 93.6 fL (83.0-100.0); Mean Platelet Volume 8.9 fL (9.4-12.4); Monocytes % 7.6 %; Neutrophils # 9.3 K/mcL (1.6-8.9); Platelet Count 383 K/mcL (140-400); Red Blood Count 2.35 M/mcL (3.82-4.97); Red Cell Distribution Width 16.3 % (11.5-14.5); Segmented Neutrophils % 71.1 %
[2021-07-15] MEDS ORDERED: Insulin Human Regular 10 UNIT in 0.9 % Sodium Chloride 10 ML IV ONE (08:17)
[2021-07-15] MEDS ORDERED: *HR* Dextrose 50 % in Water (Vial) 50 ML VIAL IVP ONE (08:17)
[2021-07-15] MEDS: Insulin LISPRO 300 UNITS/3 ML VIAL SUBQ SCH ×3 (08:56→17:06)
[2021-07-15] MEDS: carvediloL 6.25 MG TABLET PO SCH ×2 (09:02→17:06)
[2021-07-15] MEDS: amLODIPine 5 MG TABLET PO SCH (09:02)
[2021-07-15] MEDS: Insulin DETEMIR 100 UNIT/ML X5UNITS SUBQ SCH ×2 (09:03→20:17)
[2021-07-15] MEDS: Gabapentin 300 MG CAPSULE PO SCH ×3 (09:03→20:16)
[2021-07-15] MEDS: *HR* OxyCODONE/APAP 10/325 TABLET PO PRN ×2 (09:05→19:26)
[2021-07-15 09:07] LABS: VBG Ionized Calcium 0.99 mmol/L (1.15-1.35)
[2021-07-15 09:15] LABS: Albumin 2.4 g/dL (3.5-5.7); Albumin/Globulin Ratio 0.7 (1.1-2.2); Bilirubin,Direct 0.1 mg/dL (0.0-0.2); Bilirubin,Indirect 0.2 mg/dL (0.0-1.0); Bilirubin,Total 0.3 mg/dL (0.3-1.0); Globulin 3.4 g/dL (2.4-3.5); Total Protein 5.8 g/dL (6.4-8.9)
[2021-07-15] MEDS ORDERED: 0.9 % Sodium Chloride 250 ML ONE (11:05)
[2021-07-15] MEDS: *HR* OxyCODONE/APAP 7.5/325 TABLET PO PRN (11:17)
[2021-07-15 18:00] LABS: Hematocrit 24.4 % (35.3-44.9); Hemoglobin 7.4 g/dL (11.5-15.4)
[2021-07-15 18:19] LABS: Calcium 6.8 mg/dL (8.6-10.3); Potassium 5.1 mEq/L (3.5-5.1)
[2021-07-16] MEDS: *HR* OxyCODONE/APAP 10/325 TABLET PO PRN ×4 (05:21→19:55)
[2021-07-16 05:32] LABS: Basophils # 0.1 K/mcL (0.0-0.2); Basophils % 0.7 %; Eosinophils # 0.1 K/mcL (0.0-0.6); Eosinophils % 1.4 %; Hematocrit 23.4 % (35.3-44.9); Hemoglobin 7.1 g/dL (11.5-15.4); Immature Granulocytes % 1.3 % (0-4); Lymphocytes # 1.8 K/mcL (0.6-4.6); Lymphocytes % 18.4 %; Mean Corpuscular HGB Conc 30.3 g/dL (31.6-35.5); Mean Corpuscular Hemoglobin 28.4 pg (28.0-33.3); Mean Corpuscular Volume 93.6 fL (83.0-100.0); Mean Platelet Volume 8.9 fL (9.4-12.4); Monocytes # 0.9 K/mcL (0.0-1.3); Monocytes % 8.8 %; Neutrophils # 6.9 K/mcL (1.6-8.9); Platelet Count 359 K/mcL (140-400); Red Cell Distribution Width 15.9 % (11.5-14.5); Segmented Neutrophils % 69.4 %
[2021-07-16 05:50] LABS: BUN/Creatinine Ratio 26 (6-26); Blood Urea Nitrogen 23 mg/dL (8-23); Calcium 6.7 mg/dL (8.6-10.3); Carbon Dioxide 32 mEq/L (23-29); Chloride 104 mEq/L (98-107); Glucose 105 mg/dL (70-105); Magnesium 1.8 mg/dL (1.6-2.6); Osmolality,Calculated 294 (280-300); Phosphorous 3.7 mg/dL (2.7-4.5); Potassium 5.1 mEq/L (3.5-5.1); Sodium 140 mEq/L (136-145); eGFR For African Americans > 60 (> 60); eGFR For Non-African Americans > 60 (> 60)
[2021-07-16] MEDS ORDERED: Ergocalciferol (VIT D2) 50,000 UNIT (1.25MG) CAP PO SCH (07:30)
[2021-07-16] MEDS: Insulin LISPRO 300 UNITS/3 ML VIAL SUBQ SCH ×3 (08:34→17:27)
[2021-07-16] MEDS: Calcium Gluconate 1gm/50mL 1 GM/50 ML BAG IVPB SCH ×2 (09:31→10:27)
[2021-07-16] MEDS: SODIUM ZIRCONIUM CYCLOSILICATE 5 GM POWD.PACK PO SCH (09:31)
[2021-07-16] MEDS: Gabapentin 300 MG CAPSULE PO SCH ×3 (09:31→19:55)
[2021-07-16] MEDS: amLODIPine 5 MG TABLET PO SCH (09:32)
[2021-07-16] MEDS: carvediloL 6.25 MG TABLET PO SCH ×2 (09:32→17:28)
[2021-07-16] MEDS: Insulin DETEMIR 100 UNIT/ML X5UNITS SUBQ SCH (09:33)
[2021-07-17] MEDS: *HR* OxyCODONE/APAP 10/325 TABLET PO PRN ×4 (02:52→19:33)
[2021-07-17] MEDS: Insulin DETEMIR 100 UNIT/ML X5UNITS SUBQ SCH ×2 (02:53→21:25)
[2021-07-17 03:36] LABS: Basophils # 0.1 K/mcL (0.0-0.2); Basophils % 0.7 %; Eosinophils # 0.1 K/mcL (0.0-0.6); Eosinophils % 1.3 %; Hematocrit 24.3 % (35.3-44.9); Hemoglobin 7.3 g/dL (11.5-15.4); Immature Granulocytes % 1.1 % (0-4); Lymphocytes # 1.8 K/mcL (0.6-4.6); Lymphocytes % 20.9 %; Mean Corpuscular Hemoglobin 28.3 pg (28.0-33.3); Mean Corpuscular Volume 94.2 fL (83.0-100.0); Mean Platelet Volume 8.9 fL (9.4-12.4); Monocytes # 0.7 K/mcL (0.0-1.3); Monocytes % 8.5 %; Neutrophils # 5.8 K/mcL (1.6-8.9); Platelet Count 378 K/mcL (140-400); Red Blood Count 2.58 M/mcL (3.82-4.97); Red Cell Distribution Width 15.9 % (11.5-14.5); Segmented Neutrophils % 67.5 %; White Blood Count 8.5 K/mcL (4.3-11.1)
[2021-07-17 03:53] LABS: BUN/Creatinine Ratio 23 (6-26); Blood Urea Nitrogen 19 mg/dL (8-23); Calcium 6.9 mg/dL (8.6-10.3); Carbon Dioxide 31 mEq/L (23-29); Chloride 102 mEq/L (98-107); Glucose 102 mg/dL (70-105); Magnesium 1.7 mg/dL (1.6-2.6); Osmolality,Calculated 288 (280-300); Phosphorous 3.7 mg/dL (2.7-4.5); Sodium 138 mEq/L (136-145); eGFR For African Americans > 60 (> 60); eGFR For Non-African Americans > 60 (> 60)
[2021-07-17] MEDS: Insulin LISPRO 300 UNITS/3 ML VIAL SUBQ SCH ×3 (08:51→17:41)
[2021-07-17] MEDS: Calcium Gluconate 1gm/50mL 1 GM/50 ML BAG IVPB SCH ×2 (08:59→09:54)
[2021-07-17] MEDS: SODIUM ZIRCONIUM CYCLOSILICATE 5 GM POWD.PACK PO SCH (08:59)
[2021-07-17] MEDS: carvediloL 6.25 MG TABLET PO SCH ×2 (09:00→17:53)
[2021-07-17] MEDS: amLODIPine 5 MG TABLET PO SCH (09:00)
[2021-07-17] MEDS: Gabapentin 300 MG CAPSULE PO SCH ×3 (09:00→21:24)
[2021-07-17] MEDS: *HR* OxyCODONE/APAP 7.5/325 TABLET PO PRN (21:24)
[2021-07-18 02:45] LABS: Basophils # 0.1 K/mcL (0.0-0.2); Basophils % 0.6 %; Eosinophils # 0.1 K/mcL (0.0-0.6); Eosinophils % 1.5 %; Hematocrit 22.3 % (35.3-44.9); Hemoglobin 6.6 g/dL (11.5-15.4); Immature Granulocytes % 0.9 % (0-4); Lymphocytes # 1.7 K/mcL (0.6-4.6); Lymphocytes % 22.2 %; Mean Corpuscular HGB Conc 29.6 g/dL (31.6-35.5); Mean Corpuscular Volume 94.5 fL (83.0-100.0); Monocytes # 0.8 K/mcL (0.0-1.3); Monocytes % 10.3 %; Platelet Count 333 K/mcL (140-400); Red Blood Count 2.36 M/mcL (3.82-4.97); Red Cell Distribution Width 15.5 % (11.5-14.5); Segmented Neutrophils % 64.5 %; White Blood Count 7.8 K/mcL (4.3-11.1)
[2021-07-18 02:55] LABS: BUN/Creatinine Ratio 21 (6-26); Blood Urea Nitrogen 18 mg/dL (8-23); Carbon Dioxide 33 mEq/L (23-29); Chloride 101 mEq/L (98-107); Glucose 130 mg/dL (70-105); Magnesium 1.6 mg/dL (1.6-2.6); Osmolality,Calculated 288 (280-300); Potassium 4.5 mEq/L (3.5-5.1); Sodium 137 mEq/L (136-145); eGFR For African Americans > 60 (> 60); eGFR For Non-African Americans > 60 (> 60)
[2021-07-18] MEDS: *HR* OxyCODONE/APAP 10/325 TABLET PO PRN ×2 (05:45→16:39)
[2021-07-18 07:19] VITALS: PULSE 65
[2021-07-18] MEDS: SODIUM ZIRCONIUM CYCLOSILICATE 5 GM POWD.PACK PO SCH (07:24)
[2021-07-18] MEDS: carvediloL 6.25 MG TABLET PO SCH (07:24)
[2021-07-18] MEDS: amLODIPine 5 MG TABLET PO SCH (07:24)
[2021-07-18] MEDS: Gabapentin 300 MG CAPSULE PO SCH (07:24)
[2021-07-18] MEDS: Insulin LISPRO 300 UNITS/3 ML VIAL SUBQ SCH ×2 (07:27→11:39)
[2021-07-18 09:27] LABS: Hematocrit 23.6 % (35.3-44.9); Hemoglobin 7.2 g/dL (11.5-15.4)
[2021-07-18 11:13] VITALS: BP 123/70; TEMP 98.3; O2SAT 92
[2021-07-18 14:51] LABS: Influenza A PCR Negative (Negative); Influenza B PCR Negative (Negative); Resp. Syncytial Virus PCR Negative (Negative)
[2021-07-18 14:52] LABS: SARS-CoV-2 by PCR (In House) Negative (Negative)
== END 2021-07-18 16:52 | DRG 853 ==
LOC: 3ANU → SUATTDRO 17:38 → 3ANU 07-11 22:22
PROVIDERS: ADMIT Family Medicine; ATTEND Internal Medicine

== ENCOUNTER 2021-08-28 22:16 | Observation (INO) ==
[2021-08-29] MEDS ORDERED: Acetaminophen 325 MG TABLET PO PRN (01:12)
[2021-08-29] MEDS ORDERED: Naloxone 0.4 MG/ML INJ IVP PRN (01:12)
[2021-08-29] MEDS ORDERED: *HR* HYDROcodone/Acet 5/325 mg TABLET PO PRN (01:12)
[2021-08-29] MEDS ORDERED: Melatonin 3 MG TABLET PO PRN (01:12)
[2021-08-29] MEDS: 0.9 % Sodium Chloride 1,000 ML IVC SCH ×2 (01:59→19:39)
[2021-08-29] MEDS ORDERED: Dextrose Gel 15 GM/37.5 ML TUBE PO PRN ×2 (02:05)
[2021-08-29] MEDS ORDERED: *HR* Dextrose 50 % in Water (Syg) 50 ML SYRINGE IVP PRN (02:05)
[2021-08-29] MEDS ORDERED: D5% in Water 1,000 ML IVC PRN (02:05)
[2021-08-29 02:07] LABS: Basophils % 0.8 %; Eosinophils # 0.1 K/mcL (0.0-0.6); Eosinophils % 2.4 %; Hematocrit 33.6 % (35.3-44.9); Hemoglobin 9.9 g/dL (11.5-15.4); Immature Granulocytes % 0.4 % (0-4); Lymphocytes # 1.2 K/mcL (0.6-4.6); Mean Corpuscular HGB Conc 29.5 g/dL (31.6-35.5); Mean Corpuscular Volume 95.2 fL (83.0-100.0); Mean Platelet Volume 9.7 fL (9.4-12.4); Monocytes # 0.5 K/mcL (0.0-1.3); Neutrophils # 3.5 K/mcL (1.6-8.9); Platelet Count 233 K/mcL (140-400); Red Blood Count 3.53 M/mcL (3.82-4.97); Red Cell Distribution Width 15.9 % (11.5-14.5); Segmented Neutrophils % 65.4 %; White Blood Count 5.3 K/mcL (4.3-11.1)
[2021-08-29 02:27] LABS: Albumin 2.7 g/dL (3.5-5.7); Albumin/Globulin Ratio 0.8 (1.1-2.2); Bilirubin,Total 0.3 mg/dL (0.3-1.0); Calcium 7.1 mg/dL (8.6-10.3); Globulin 3.3 g/dL (2.4-3.5); Magnesium 2.6 mg/dL (1.6-2.6); Phosphorous 7.1 mg/dL (2.7-4.5); Potassium 4.6 mEq/L (3.5-5.1)
[2021-08-29] MEDS: Insulin LISPRO 300 UNITS/3 ML VIAL SUBQ SCH ×3 (08:58→16:37)
[2021-08-29] MEDS: cefTRIAXone 1,000 MG in 0.9 % Sodium Chloride Mini Bag 100 ML IVPB SCH (09:30)
[2021-08-29] MEDS: *HR* OxyCODONE Immed Rel 5 MG TABLET PO PRN ×2 (09:45→19:44)
[2021-08-29] MEDS ORDERED: Ergocalciferol (VIT D2) 50,000 UNIT (1.25MG) CAP PO SCH (12:00)
[2021-08-29 12:21] LABS: Uric Acid 10.4 mg/dL (2.3-7.6)
[2021-08-29] MEDS ORDERED: Calcium Gluconate 1gm/50mL 1 GM/50 ML BAG IVPB ONE ×2 (12:21→13:15)
[2021-08-29] MEDS ORDERED: *HR* Heparin 5,000 UNIT/ML VIAL SQ SCH (14:00)
[2021-08-29] MEDS: *HR* Heparin 5,000 UNIT/ML VIAL SQ SCH ×2 (15:16→19:40)
[2021-08-29] MEDS: carvediloL 6.25 MG TABLET PO SCH (16:19)
[2021-08-29 18:17] LABS: Bacteria,Urine Few per hpf (None-Few); Bilirubin,Urine Negative (Negative); Blood,Urine Negative (Negative); Budding Yeast,Urine Few per hpf (None Seen); Clarity,Urine Turbid (Clear); Color,Urine Yellow (Yellow); Glucose,Urine (UA) Normal (Normal); Hyaline Casts,Urine Moderate per lpf (None Seen); Ketones,Urine Negative (Negative); Leukocyte Esterase,Urine Large (Negative); Mucus,Urine Few per lpf (None-Few); Nitrite,Urine Negative (Negative); PH,Urine 5.5 pH Units (5.0-8.0); Protein,Urine 70 mg/dL (Neg-Trace); RBC,Urine 15-30 per hpf (0-3); Specific Gravity,Urine 1.018 (1.010-1.025); Urobilinogen,Urine Normal (Normal); WBC,Urine TNTC per hpf (0-3)
[2021-08-29 18:24] LABS: Sodium, Urine 36.8 mEq/L
[2021-08-29 19:50] LABS: Hepatitis B Surface Antigen Nonreactive (Nonreactive)
[2021-08-29 20:22] LABS: Hepatitis A Antibody IgM Nonreactive (Nonreactive)
[2021-08-29 20:24] LABS: Hepatitis C Virus Antibody Nonreactive (Nonreactive)
[2021-08-29 20:26] LABS: Hepatitis B Core IgM Nonreactive (Nonreactive)
[2021-08-30 02:06] LABS: Hematocrit 32.4 % (35.3-44.9); Hemoglobin 9.5 g/dL (11.5-15.4); Mean Corpuscular HGB Conc 29.3 g/dL (31.6-35.5); Mean Corpuscular Hemoglobin 27.9 pg (28.0-33.3); Mean Platelet Volume 9.8 fL (9.4-12.4); Platelet Count 233 K/mcL (140-400); Red Blood Count 3.41 M/mcL (3.82-4.97); Red Cell Distribution Width 15.9 % (11.5-14.5); White Blood Count 5.1 K/mcL (4.3-11.1)
[2021-08-30 02:12] LABS: VBG Ionized Calcium 0.92 mmol/L (1.15-1.35)
[2021-08-30 02:25] LABS: Albumin 2.6 g/dL (3.5-5.7); Calcium 7.4 mg/dL (8.6-10.3); Magnesium 2.5 mg/dL (1.6-2.6); Potassium 4.9 mEq/L (3.5-5.1)
[2021-08-30] MEDS: *HR* Heparin 5,000 UNIT/ML VIAL SQ SCH ×3 (05:51→21:18)
[2021-08-30] MEDS ORDERED: CALCIUM GLUCONATE 1 GM/50 ML IVPB ONE (07:32)
[2021-08-30] MEDS: Insulin LISPRO 300 UNITS/3 ML VIAL SUBQ SCH ×3 (07:50→16:50)
[2021-08-30] MEDS: Aspirin 81 MG TAB.CHEW PO SCH (08:02)
[2021-08-30] MEDS: amLODIPine 5 MG TABLET PO SCH (08:03)
[2021-08-30] MEDS: Multivit/Ca/Min/Fe/FA 1 TAB TABLET PO SCH (08:03)
[2021-08-30] MEDS: carvediloL 6.25 MG TABLET PO SCH ×2 (08:03→17:08)
[2021-08-30] MEDS: Sennosides/Docusate Sodium TABLET PO SCH (08:03)
[2021-08-30] MEDS: Ascorbic Acid 500 MG TABLET PO SCH (08:03)
[2021-08-30] MEDS: Gabapentin 300 MG CAPSULE PO SCH (08:04)
[2021-08-30] MEDS: cefTRIAXone 1,000 MG in 0.9 % Sodium Chloride Mini Bag 100 ML IVPB SCH (08:22)
[2021-08-30] MEDS: Ondansetron ODT 4 MG TAB.RAPDIS SL PRN (08:29)
[2021-08-30] MEDS ORDERED: NON-FORMULARY MEDICATION 1 EACH EACH (Omega-3/Dha/Epa/Fish Oil [Fish Oil 1,000 Mg Softgel] PO SCH (09:00)
[2021-08-31 05:01] LABS: VBG Ionized Calcium 1.13 mmol/L (1.15-1.35)
[2021-08-31 05:15] LABS: Calcium 7.8 mg/dL (8.6-10.3); Magnesium 2.7 mg/dL (1.6-2.6); Potassium 4.6 mEq/L (3.5-5.1)
[2021-08-31 05:17] LABS: Eosinophils # 0.2 K/mcL (0.0-0.6); Eosinophils % 3.8 %; Hematocrit 30.5 % (35.3-44.9); Hemoglobin 9.1 g/dL (11.5-15.4); Immature Granulocytes % 0.5 % (0-4); Lymphocytes # 1.3 K/mcL (0.6-4.6); Mean Corpuscular HGB Conc 29.8 g/dL (31.6-35.5); Mean Corpuscular Volume 93.8 fL (83.0-100.0); Mean Platelet Volume 9.6 fL (9.4-12.4); Monocytes # 0.5 K/mcL (0.0-1.3); Monocytes % 12.5 %; Neutrophils # 2.1 K/mcL (1.6-8.9); Nucleated Red Blood Cells 0.5 /100 WBC (0); Platelet Count 245 K/mcL (140-400); Red Blood Count 3.25 M/mcL (3.82-4.97); Red Cell Distribution Width 15.5 % (11.5-14.5); Segmented Neutrophils % 51.2 %; White Blood Count 4.2 K/mcL (4.3-11.1)
[2021-08-31] MEDS: *HR* Heparin 5,000 UNIT/ML VIAL SQ SCH ×2 (05:43→13:02)
[2021-08-31] MEDS ORDERED: 0.9 % Sodium Chloride 1,000 ML IVC SCH (07:45)
[2021-08-31] MEDS: Insulin LISPRO 300 UNITS/3 ML VIAL SUBQ SCH ×2 (07:50→13:03)
[2021-08-31] MEDS: Ascorbic Acid 500 MG TABLET PO SCH (07:52)
[2021-08-31] MEDS: carvediloL 6.25 MG TABLET PO SCH (07:53)
[2021-08-31] MEDS: Gabapentin 300 MG CAPSULE PO SCH (07:53)
[2021-08-31] MEDS: Aspirin 81 MG TAB.CHEW PO SCH (07:53)
[2021-08-31] MEDS: Ondansetron ODT 4 MG TAB.RAPDIS SL PRN (07:54)
[2021-08-31] MEDS: Sennosides/Docusate Sodium TABLET PO SCH (07:54)
[2021-08-31] MEDS: Multivit/Ca/Min/Fe/FA 1 TAB TABLET PO SCH (07:54)
[2021-08-31] MEDS: amLODIPine 5 MG TABLET PO SCH (07:55)
[2021-08-31] MEDS: cefTRIAXone 1,000 MG in 0.9 % Sodium Chloride Mini Bag 100 ML IVPB SCH (07:55)
[2021-08-31] MEDS ORDERED: NON-FORMULARY MEDICATION 1 EACH EACH (Duloxetine Hcl [Cymbalta] 60 MG Capsule.Dr) PO SCH (09:00)
[2021-08-31 11:36] VITALS: BP 128/69; PULSE 58; TEMP 98; O2SAT 94
[2021-08-31 12:38] LABS: Influenza A PCR Negative (Negative); Influenza B PCR Negative (Negative); Resp. Syncytial Virus PCR Negative (Negative)
[2021-08-31 13:00] LABS: SARS-CoV-2 by PCR (In House) Negative (Negative)
== END 2021-08-31 15:33 ==
LOC: 3ANU → SUATTDRO 08-29 00:07
PROVIDERS: ADMIT Internal Medicine; ATTEND Internal Medicine

== ENCOUNTER 2021-09-05 22:04 | Inpatient (IN) ==
[2021-09-06] MEDS ORDERED: 0.9 % Sodium Chloride 1,000 ML IVC SCH (00:45)
[2021-09-06] MEDS ORDERED: Ondansetron 4 MG/2 ML VIAL IVP PRN (00:45)
[2021-09-06] MEDS ORDERED: Naloxone 0.4 MG/ML INJ IVP PRN (00:45)
[2021-09-06] MEDS: Vancomycin Oral Soln 125 MG/2.5 ML UDC PO SCH ×5 (01:09→20:25)
[2021-09-06 02:27] LABS: Hemoglobin 10.2 g/dL (11.5-15.4)
[2021-09-06 02:28] LABS: Hematocrit 35.4 % (35.3-44.9); Mean Corpuscular HGB Conc 28.8 g/dL (31.6-35.5); Mean Corpuscular Hemoglobin 27.7 pg (28.0-33.3); Mean Corpuscular Volume 96.2 fL (83.0-100.0); Mean Platelet Volume 9.1 fL (9.4-12.4); Platelet Count 200 K/mcL (140-400); Red Blood Count 3.68 M/mcL (3.82-4.97); Red Cell Distribution Width 15.7 % (11.5-14.5); White Blood Count 15.5 K/mcL (4.3-11.1)
[2021-09-06 02:45] LABS: Potassium 4.4 mEq/L (3.5-5.1); Troponin I 0.07 ng/mL (< 0.04)
[2021-09-06] MEDS ORDERED: Dextrose Gel 15 GM/37.5 ML TUBE PO PRN ×2 (02:51)
[2021-09-06] MEDS ORDERED: *HR* Dextrose 50 % in Water (Syg) 50 ML SYRINGE IVP PRN (02:51)
[2021-09-06] MEDS ORDERED: D5% in Water 1,000 ML IVC PRN (02:51)
[2021-09-06] MEDS: *HR* Heparin 5,000 UNIT/ML VIAL SQ SCH ×3 (06:25→20:25)
[2021-09-06] MEDS: Insulin LISPRO 300 UNITS/3 ML VIAL SUBQ SCH ×3 (08:13→17:49)
[2021-09-06 14:54] LABS: Basophils % 0.2 %; Lymphocytes % 2.7 %; Mean Platelet Volume 9.5 fL (9.4-12.4)
[2021-09-06 14:56] LABS: Basophils # 0.1 K/mcL (0.0-0.2); Hematocrit 36.6 % (35.3-44.9); Hemoglobin 10.8 g/dL (11.5-15.4); Immature Granulocytes % 0.6 % (0-4); Mean Corpuscular HGB Conc 29.5 g/dL (31.6-35.5); Mean Corpuscular Hemoglobin 28.1 pg (28.0-33.3); Mean Corpuscular Volume 95.1 fL (83.0-100.0); Monocytes # 1.3 K/mcL (0.0-1.3); Monocytes % 5.2 %; Platelet Count 233 K/mcL (140-400); Red Blood Count 3.85 M/mcL (3.82-4.97); Red Cell Distribution Width 15.8 % (11.5-14.5); Segmented Neutrophils % 91.3 %; White Blood Count 24.1 K/mcL (4.3-11.1)
[2021-09-06 14:57] LABS: Lymphocytes # 0.7 K/mcL (0.6-4.6)
[2021-09-06 15:19] LABS: Calcium 8.2 mg/dL (8.6-10.3); Potassium 4.3 mEq/L (3.5-5.1); Troponin I 0.07 ng/mL (< 0.04)
[2021-09-06 16:18] LABS: Platelet Estimate Normal (Normal)
[2021-09-06] MEDS: 0.9 % Sodium Chloride 1,000 ML IVC SCH (16:48)
[2021-09-06 17:49] LABS: Alanine Aminotransferase 6 Units/L (7-52); Albumin 2.4 g/dL (3.5-5.7); Albumin/Globulin Ratio 0.8 (1.1-2.2); Alkaline Phosphatase 250 Units/L (34-104); Amylase < 10 Units/L (29-103); Aspartate Amino Transferase 11 Units/L (13-39); Bilirubin,Direct 0.1 mg/dL (0.0-0.2); Bilirubin,Indirect 0.2 mg/dL (0.0-1.0); Bilirubin,Total 0.3 mg/dL (0.3-1.0); Creatine Kinase 29 Units/L (30-223); Globulin 3.1 g/dL (2.4-3.5); Lipase 3 Units/L (11-82); Total Protein 5.5 g/dL (6.4-8.9)
[2021-09-06] MEDS: Cefepime HCl 1,000 MG in Water for inj. (sterile) 10 ML IVP SCH (18:41)
[2021-09-06] MEDS: Acetaminophen 325 MG TABLET PO PRN (20:46)
[2021-09-06] MEDS: Vancomycin 1,500 MG/265 ML IV.SOLN IVPB SCH (22:01)
[2021-09-07 02:42] LABS: Mean Platelet Volume 9.5 fL (9.4-12.4)
[2021-09-07 02:44] LABS: Hematocrit 36.5 % (35.3-44.9); Hemoglobin 10.5 g/dL (11.5-15.4); Mean Corpuscular HGB Conc 28.8 g/dL (31.6-35.5); Mean Corpuscular Hemoglobin 27.2 pg (28.0-33.3); Mean Corpuscular Volume 94.6 fL (83.0-100.0); Platelet Count 220 K/mcL (140-400); Red Blood Count 3.86 M/mcL (3.82-4.97); Red Cell Distribution Width 16.1 % (11.5-14.5); White Blood Count 26.3 K/mcL (4.3-11.1)
[2021-09-07 02:53] LABS: Albumin 2.1 g/dL (3.5-5.7); Albumin/Globulin Ratio 0.7 (1.1-2.2); Bilirubin,Total 0.3 mg/dL (0.3-1.0); Calcium 7.7 mg/dL (8.6-10.3); Potassium 4.2 mEq/L (3.5-5.1); Total Protein 5.1 g/dL (6.4-8.9)
[2021-09-07] MEDS: Acetaminophen 325 MG TABLET PO PRN (03:21)
[2021-09-07 04:37] LABS: Campylobacter by PCR Not detected (Not detect)
[2021-09-07 04:38] LABS: Adenovirus F 40/41 PCR Not detected (Not detect); Astrovirus PCR Not detected (Not detect); C.difficile Toxin A/B Gene PCR DETECTED (Not detect); Cryptosporidium by PCR Not detected (Not detect); Cyclospora cayetanensis PCR Not detected (Not detect); E. coli O157 by PCR Not detected (Not detect); Entamoeba histolytica PCR Not detected (Not detect); Enteroaggregative E.coli(EAEC) Not detected (Not detect); Enteropathogenic E.coli(EPEC) Not detected (Not detect); Enterotoxigenic E.coli (ETEC) Not detected (Not detect); Giardia lamblia PCR Not detected (Not detect); Norovirus GI/GII PCR Not detected (Not detect); Plesiomonas shigelloides PCR Not detected (Not detect); Rotavirus A PCR Not detected (Not detect); Salmonella PCR Not detected (Not detect); Sapovirus PCR Not detected (Not detect); Shig/EnteroinvasiveE coli EIEC Not detected (Not detect); Shigalike tox-prod E coli STEC Not detected (Not detect); Vibrio PCR Not detected (Not detect); Vibrio cholerae PCR Not detected (Not detect); Yersinia enterocolitica PCR Not detected (Not detect)
[2021-09-07] MEDS: *HR* Heparin 5,000 UNIT/ML VIAL SQ SCH ×3 (05:53→21:01)
[2021-09-07] MEDS: Cefepime HCl 1,000 MG in Water for inj. (sterile) 10 ML IVP SCH ×2 (05:54→17:25)
[2021-09-07] MEDS: 0.9 % Sodium Chloride 1,000 ML IVC SCH ×3 (05:55→21:04)
[2021-09-07] MEDS: Insulin LISPRO 300 UNITS/3 ML VIAL SUBQ SCH ×3 (08:03→16:53)
[2021-09-07] MEDS: Vancomycin 1,500 MG/265 ML IV.SOLN IVPB SCH ×2 (08:45→21:03)
[2021-09-07] MEDS: Vancomycin Oral Soln 125 MG/2.5 ML UDC PO SCH ×4 (08:45→21:03)
[2021-09-07 10:06] LABS: Bacteria,Urine Few per hpf (None-Few); Bilirubin,Urine Negative (Negative); Blood,Urine Negative (Negative); Budding Yeast,Urine Many per hpf (None Seen); Clarity,Urine Turbid (Clear); Color,Urine Yellow (Yellow); Glucose,Urine (UA) Normal (Normal); Hyaline Casts,Urine Few per lpf (None Seen); Ketones,Urine Trace mg/dL (Negative); Leukocyte Esterase,Urine Large (Negative); Mucus,Urine Few per lpf (None-Few); Nitrite,Urine Negative (Negative); PH,Urine 5.5 pH Units (5.0-8.0); Protein,Urine 100 mg/dL (Neg-Trace); RBC,Urine 0-3 per hpf (0-3); Renal Epithelial Cells,Urine Few per hpf (None-Few); Specific Gravity,Urine 1.023 (1.010-1.025); Squamous Epithelial Cell,Urine Few per hpf (None-Few); Transitional Epi Cells,Urine Few per hpf (None-Few); Urobilinogen,Urine Normal (Normal); WBC,Urine 50-100 per hpf (0-3)
[2021-09-07 11:59] LABS: Lymphocytes # 1.6 K/mcL (0.6-4.6); Monocytes # 0.5 K/mcL (0.0-1.3); Neutrophils # 24.2 K/mcL (1.6-8.9)
[2021-09-07 12:00] LABS: Hypochromasia Present (Not Present); Platelet Estimate Normal (Normal)
[2021-09-08] MEDS: Vancomycin 1,500 MG/265 ML IV.SOLN IVPB SCH (01:01)
[2021-09-08 01:48] LABS: Basophils % 0.3 %; Monocytes % 3.8 %
[2021-09-08 01:50] LABS: Basophils # 0.1 K/mcL (0.0-0.2); Eosinophils % 0.1 %; Hematocrit 37.5 % (35.3-44.9); Hemoglobin 11.2 g/dL (11.5-15.4); Immature Granulocytes % 0.5 % (0-4); Lymphocytes % 4.7 %; Mean Corpuscular HGB Conc 29.9 g/dL (31.6-35.5); Mean Corpuscular Hemoglobin 28.1 pg (28.0-33.3); Mean Corpuscular Volume 94.2 fL (83.0-100.0); Mean Platelet Volume 9.1 fL (9.4-12.4); Monocytes # 0.8 K/mcL (0.0-1.3); Neutrophils # 19.8 K/mcL (1.6-8.9); Platelet Count 197 K/mcL (140-400); Red Blood Count 3.98 M/mcL (3.82-4.97); Red Cell Distribution Width 15.8 % (11.5-14.5); Segmented Neutrophils % 90.6 %; White Blood Count 21.9 K/mcL (4.3-11.1)
[2021-09-08 02:09] LABS: Albumin 2.1 g/dL (3.5-5.7); Albumin/Globulin Ratio 0.7 (1.1-2.2); Bilirubin,Total 0.3 mg/dL (0.3-1.0); Calcium 7.4 mg/dL (8.6-10.3); Total Protein 5.1 g/dL (6.4-8.9)
[2021-09-08] MEDS: Vancomycin 1,250 MG/262.5 ML IV.SOLN IVPB SCH ×2 (02:23→13:44)
[2021-09-08] MEDS: 0.9 % Sodium Chloride 1,000 ML IVC SCH ×4 (02:23→23:54)
[2021-09-08 02:42] LABS: Platelet Estimate Normal (Normal)
[2021-09-08] MEDS: Cefepime HCl 1,000 MG in Water for inj. (sterile) 10 ML IVP SCH ×2 (06:17→16:50)
[2021-09-08] MEDS: *HR* Heparin 5,000 UNIT/ML VIAL SQ SCH ×3 (06:19→20:58)
[2021-09-08] MEDS: Insulin LISPRO 300 UNITS/3 ML VIAL SUBQ SCH ×3 (08:05→16:41)
[2021-09-08] MEDS: Vancomycin Oral Soln 125 MG/2.5 ML UDC PO SCH ×4 (09:52→20:57)
[2021-09-08] MEDS: Albumin 25% 25gram/100mL 25 GM/100 ML IV.SOLN IVPB SCH ×2 (16:49→23:54)
[2021-09-08] MEDS: carvediloL 6.25 MG TABLET PO SCH (16:51)
[2021-09-09] MEDS: Acetaminophen 325 MG TABLET PO PRN (02:43)
[2021-09-09 05:32] LABS: Hematocrit 31.2 % (35.3-44.9); Lymphocytes # 1.2 K/mcL (0.6-4.6); Mean Corpuscular HGB Conc 30.1 g/dL (31.6-35.5); Mean Corpuscular Hemoglobin 28.2 pg (28.0-33.3); Mean Corpuscular Volume 93.7 fL (83.0-100.0); Mean Platelet Volume 9.8 fL (9.4-12.4); Platelet Count 165 K/mcL (140-400); Red Blood Count 3.33 M/mcL (3.82-4.97); Red Cell Distribution Width 15.9 % (11.5-14.5); White Blood Count 11.8 K/mcL (4.3-11.1)
[2021-09-09] MEDS: *HR* Heparin 5,000 UNIT/ML VIAL SQ SCH ×3 (05:34→20:20)
[2021-09-09] MEDS: Cefepime HCl 1,000 MG in Water for inj. (sterile) 10 ML IVP SCH (05:34)
[2021-09-09 05:42] LABS: Hemoglobin 9.4 g/dL (11.5-15.4)
[2021-09-09 05:54] LABS: Albumin 2.5 g/dL (3.5-5.7); Bilirubin,Total 0.3 mg/dL (0.3-1.0); Calcium 7.1 mg/dL (8.6-10.3); Globulin 2.4 g/dL (2.4-3.5); Potassium 3.6 mEq/L (3.5-5.1); Total Protein 4.9 g/dL (6.4-8.9)
[2021-09-09 06:52] LABS: Eosinophils # 0.2 K/mcL (0.0-0.6); Monocytes # 0.4 K/mcL (0.0-1.3)
[2021-09-09 06:53] LABS: Platelet Estimate Normal (Normal); Reactive Lymphocytes Present (Not Present)
[2021-09-09] MEDS: Insulin LISPRO 300 UNITS/3 ML VIAL SUBQ SCH ×3 (08:19→17:31)
[2021-09-09] MEDS: Gabapentin 300 MG CAPSULE PO SCH (09:27)
[2021-09-09] MEDS: Lactobacillus 1 EACH CAP.SPRINK PO SCH (09:27)
[2021-09-09] MEDS: carvediloL 6.25 MG TABLET PO SCH ×2 (09:27→17:30)
[2021-09-09] MEDS: Aspirin 81 MG TAB.CHEW PO SCH (09:28)
[2021-09-09] MEDS: Vancomycin Oral Soln 125 MG/2.5 ML UDC PO SCH ×4 (10:33→20:20)
[2021-09-09] MEDS: Albumin 25% 25gram/100mL 25 GM/100 ML IV.SOLN IVPB SCH ×2 (10:36→17:31)
[2021-09-09] MEDS: 0.9 % Sodium Chloride 1,000 ML IVC SCH ×2 (10:37→20:19)
[2021-09-09] MEDS: LEVOFLOXACIN 750 MG/150 ML IVPB SCH (13:50)
[2021-09-10] MEDS: Albumin 25% 25gram/100mL 25 GM/100 ML IV.SOLN IVPB SCH ×2 (00:39→08:15)
[2021-09-10 01:36] LABS: Basophils % 0.4 %; Eosinophils # 0.2 K/mcL (0.0-0.6); Hematocrit 32.1 % (35.3-44.9); Hemoglobin 9.3 g/dL (11.5-15.4); Lymphocytes % 13.8 %; Mean Corpuscular Hemoglobin 27.5 pg (28.0-33.3); Mean Platelet Volume 9.5 fL (9.4-12.4); Monocytes # 0.6 K/mcL (0.0-1.3); Monocytes % 7.6 %; Neutrophils # 5.5 K/mcL (1.6-8.9); Platelet Count 152 K/mcL (140-400); Red Blood Count 3.38 M/mcL (3.82-4.97); Red Cell Distribution Width 16.1 % (11.5-14.5); Segmented Neutrophils % 74.2 %; White Blood Count 7.5 K/mcL (4.3-11.1)
[2021-09-10 01:47] LABS: Albumin 2.8 g/dL (3.5-5.7); Albumin/Globulin Ratio 1.1 (1.1-2.2); Bilirubin,Total 0.3 mg/dL (0.3-1.0); Calcium 7.3 mg/dL (8.6-10.3); Globulin 2.5 g/dL (2.4-3.5); Potassium 3.6 mEq/L (3.5-5.1); Total Protein 5.3 g/dL (6.4-8.9)
[2021-09-10] MEDS: *HR* Heparin 5,000 UNIT/ML VIAL SQ SCH ×3 (05:53→22:13)
[2021-09-10] MEDS: Insulin LISPRO 300 UNITS/3 ML VIAL SUBQ SCH ×3 (08:13→16:46)
[2021-09-10] MEDS: carvediloL 6.25 MG TABLET PO SCH ×2 (08:17→17:28)
[2021-09-10] MEDS: Vancomycin Oral Soln 125 MG/2.5 ML UDC PO SCH ×4 (08:17→22:14)
[2021-09-10] MEDS: Aspirin 81 MG TAB.CHEW PO SCH (08:18)
[2021-09-10] MEDS: Gabapentin 300 MG CAPSULE PO SCH (08:18)
[2021-09-10] MEDS: Lactobacillus 1 EACH CAP.SPRINK PO SCH (08:18)
[2021-09-10] MEDS: 0.9 % Sodium Chloride 1,000 ML IVC SCH (10:36)
[2021-09-11 02:39] LABS: Basophils # 0.1 K/mcL (0.0-0.2); Basophils % 0.7 %; Eosinophils # 0.2 K/mcL (0.0-0.6); Eosinophils % 2.1 %
[2021-09-11 02:40] LABS: Hematocrit 32.4 % (35.3-44.9); Hemoglobin 9.4 g/dL (11.5-15.4); Lymphocytes % 14.9 %; Mean Corpuscular Hemoglobin 27.8 pg (28.0-33.3); Mean Corpuscular Volume 95.9 fL (83.0-100.0); Mean Platelet Volume 9.2 fL (9.4-12.4); Monocytes # 0.7 K/mcL (0.0-1.3); Monocytes % 9.7 %; Neutrophils # 4.7 K/mcL (1.6-8.9); Platelet Count 148 K/mcL (140-400); Red Blood Count 3.38 M/mcL (3.82-4.97); Red Cell Distribution Width 16.1 % (11.5-14.5); Segmented Neutrophils % 66.6 %
[2021-09-11 02:57] LABS: Albumin/Globulin Ratio 1.3 (1.1-2.2); Bilirubin,Total 0.3 mg/dL (0.3-1.0); Calcium 7.4 mg/dL (8.6-10.3); Globulin 2.3 g/dL (2.4-3.5); Potassium 3.5 mEq/L (3.5-5.1); Total Protein 5.3 g/dL (6.4-8.9)
[2021-09-11] MEDS: *HR* Heparin 5,000 UNIT/ML VIAL SQ SCH ×3 (05:27→20:52)
[2021-09-11] MEDS ORDERED: 0.9 % Sodium Chloride 1,000 ML IVC SCH ×2 (07:45→11:15)
[2021-09-11] MEDS: Vancomycin Oral Soln 125 MG/2.5 ML UDC PO SCH ×4 (09:12→20:52)
[2021-09-11] MEDS: Gabapentin 300 MG CAPSULE PO SCH (09:12)
[2021-09-11] MEDS: Lactobacillus 1 EACH CAP.SPRINK PO SCH (09:12)
[2021-09-11] MEDS: Aspirin 81 MG TAB.CHEW PO SCH (09:12)
[2021-09-11] MEDS: carvediloL 6.25 MG TABLET PO SCH ×2 (09:13→17:19)
[2021-09-11] MEDS: Albumin 25% 25gram/100mL 25 GM/100 ML IV.SOLN IVPB SCH ×3 (09:13→23:09)
[2021-09-11] MEDS: Ringers Solution, Lactated 1,000 ML IVC SCH (09:13)
[2021-09-11] MEDS: Insulin LISPRO 300 UNITS/3 ML VIAL SUBQ SCH ×3 (09:18→16:27)
[2021-09-11] MEDS: LEVOFLOXACIN 750 MG/150 ML IVPB SCH (13:58)
[2021-09-12] MEDS: Ringers Solution, Lactated 1,000 ML IVC SCH (02:34)
[2021-09-12] MEDS: Acetaminophen 325 MG TABLET PO PRN (02:34)
[2021-09-12 03:27] LABS: Hematocrit 31.3 % (35.3-44.9); Hemoglobin 9.1 g/dL (11.5-15.4); Mean Corpuscular HGB Conc 29.1 g/dL (31.6-35.5); Mean Corpuscular Hemoglobin 27.7 pg (28.0-33.3); Mean Corpuscular Volume 95.1 fL (83.0-100.0); Mean Platelet Volume 9.2 fL (9.4-12.4); Platelet Count 151 K/mcL (140-400); Red Blood Count 3.29 M/mcL (3.82-4.97); White Blood Count 6.1 K/mcL (4.3-11.1)
[2021-09-12 03:43] LABS: Calcium 7.4 mg/dL (8.6-10.3); Potassium 3.6 mEq/L (3.5-5.1)
[2021-09-12] MEDS: *HR* Heparin 5,000 UNIT/ML VIAL SQ SCH ×3 (05:57→20:24)
[2021-09-12] MEDS: Insulin LISPRO 300 UNITS/3 ML VIAL SUBQ SCH ×3 (07:16→15:37)
[2021-09-12] MEDS: Aspirin 81 MG TAB.CHEW PO SCH (08:30)
[2021-09-12] MEDS: Vancomycin Oral Soln 125 MG/2.5 ML UDC PO SCH ×4 (08:30→20:24)
[2021-09-12] MEDS: Lactobacillus 1 EACH CAP.SPRINK PO SCH (08:30)
[2021-09-12] MEDS: Gabapentin 300 MG CAPSULE PO SCH (08:31)
[2021-09-12] MEDS: Albumin 25% 25gram/100mL 25 GM/100 ML IV.SOLN IVPB SCH ×3 (08:31→23:05)
[2021-09-12] MEDS: carvediloL 6.25 MG TABLET PO SCH ×2 (08:31→15:40)
[2021-09-13 04:55] LABS: Hematocrit 30.2 % (35.3-44.9); Hemoglobin 8.8 g/dL (11.5-15.4); Mean Corpuscular HGB Conc 29.1 g/dL (31.6-35.5); Mean Corpuscular Hemoglobin 28.1 pg (28.0-33.3); Mean Corpuscular Volume 96.5 fL (83.0-100.0); Mean Platelet Volume 9.3 fL (9.4-12.4); Platelet Count 151 K/mcL (140-400); Red Blood Count 3.13 M/mcL (3.82-4.97); White Blood Count 5.8 K/mcL (4.3-11.1)
[2021-09-13 05:12] LABS: Albumin 3.5 g/dL (3.5-5.7); Albumin/Globulin Ratio 1.8 (1.1-2.2); Bilirubin,Direct 0.1 mg/dL (0.0-0.2); Bilirubin,Indirect 0.2 mg/dL (0.0-1.0); Bilirubin,Total 0.3 mg/dL (0.3-1.0); Calcium 7.5 mg/dL (8.6-10.3); Globulin 1.9 g/dL (2.4-3.5); Potassium 3.6 mEq/L (3.5-5.1); Total Protein 5.4 g/dL (6.4-8.9)
[2021-09-13] MEDS: *HR* Heparin 5,000 UNIT/ML VIAL SQ SCH ×3 (05:38→21:31)
[2021-09-13 06:33] LABS: INR 1.2; Prothrombin Time 13.4 Seconds (9.4-12.1)
[2021-09-13] MEDS: Insulin LISPRO 300 UNITS/3 ML VIAL SUBQ SCH ×3 (07:06→14:08)
[2021-09-13] MEDS: Gabapentin 300 MG CAPSULE PO SCH (07:48)
[2021-09-13] MEDS: Aspirin 81 MG TAB.CHEW PO SCH (07:48)
[2021-09-13] MEDS: carvediloL 6.25 MG TABLET PO SCH ×2 (07:48→15:43)
[2021-09-13] MEDS: Vancomycin Oral Soln 125 MG/2.5 ML UDC PO SCH ×4 (07:48→21:31)
[2021-09-13] MEDS: Lactobacillus 1 EACH CAP.SPRINK PO SCH (07:48)
[2021-09-13] MEDS ORDERED: levoFLOXacin 750 MG TABLET PO SCH (09:00)
[2021-09-14 04:08] LABS: Calcium 7.6 mg/dL (8.6-10.3); Hematocrit 33.3 % (35.3-44.9); Mean Corpuscular Hemoglobin 28.8 pg (28.0-33.3); Mean Platelet Volume 9.7 fL (9.4-12.4); Platelet Count 223 K/mcL (140-400); Potassium 3.7 mEq/L (3.5-5.1); Red Blood Count 3.47 M/mcL (3.82-4.97); Red Cell Distribution Width 16.3 % (11.5-14.5); White Blood Count 7.6 K/mcL (4.3-11.1)
[2021-09-14] MEDS: *HR* Heparin 5,000 UNIT/ML VIAL SQ SCH ×3 (06:10→21:14)
[2021-09-14] MEDS: Aspirin 81 MG TAB.CHEW PO SCH (09:12)
[2021-09-14] MEDS: Lactobacillus 1 EACH CAP.SPRINK PO SCH (09:12)
[2021-09-14] MEDS: carvediloL 6.25 MG TABLET PO SCH ×2 (09:12→16:36)
[2021-09-14] MEDS: Gabapentin 300 MG CAPSULE PO SCH (09:13)
[2021-09-14] MEDS: Vancomycin Oral Soln 125 MG/2.5 ML UDC PO SCH ×4 (09:13→21:14)
[2021-09-14] MEDS: Insulin LISPRO 300 UNITS/3 ML VIAL SUBQ SCH ×3 (09:20→17:21)
[2021-09-14] MEDS: Sodium Bicarbonate 75 MEQ in 0.45 % Sodium Chloride 1,000 ML IVC SCH (16:36)
[2021-09-15] MEDS: *HR* Heparin 5,000 UNIT/ML VIAL SQ SCH ×3 (04:51→21:18)
[2021-09-15 08:15] LABS: Hematocrit 33.8 % (35.3-44.9); Hemoglobin 9.8 g/dL (11.5-15.4); Mean Corpuscular Hemoglobin 27.5 pg (28.0-33.3); Mean Corpuscular Volume 94.9 fL (83.0-100.0); Platelet Count 206 K/mcL (140-400); Red Blood Count 3.56 M/mcL (3.82-4.97); Red Cell Distribution Width 16.3 % (11.5-14.5); White Blood Count 9.1 K/mcL (4.3-11.1)
[2021-09-15 08:33] LABS: Calcium 7.5 mg/dL (8.6-10.3); Potassium 3.6 mEq/L (3.5-5.1)
[2021-09-15] MEDS: Insulin LISPRO 300 UNITS/3 ML VIAL SUBQ SCH ×3 (10:13→16:50)
[2021-09-15] MEDS: Sodium Bicarbonate 75 MEQ in 0.45 % Sodium Chloride 1,000 ML IVC SCH (10:20)
[2021-09-15] MEDS: Gabapentin 300 MG CAPSULE PO SCH (10:21)
[2021-09-15] MEDS: carvediloL 6.25 MG TABLET PO SCH ×2 (10:21→16:55)
[2021-09-15] MEDS: Aspirin 81 MG TAB.CHEW PO SCH (10:21)
[2021-09-15] MEDS: Lactobacillus 1 EACH CAP.SPRINK PO SCH (10:21)
[2021-09-15] MEDS: Vancomycin Oral Soln 125 MG/2.5 ML UDC PO SCH ×4 (10:22→21:18)
[2021-09-16 01:44] LABS: Red Cell Distribution Width 16.5 % (11.5-14.5)
[2021-09-16 01:45] LABS: Hematocrit 34.6 % (35.3-44.9); Hemoglobin 9.6 g/dL (11.5-15.4); Mean Corpuscular HGB Conc 27.7 g/dL (31.6-35.5); Mean Corpuscular Hemoglobin 27.1 pg (28.0-33.3); Mean Corpuscular Volume 97.7 fL (83.0-100.0); Mean Platelet Volume 9.7 fL (9.4-12.4); Platelet Count 197 K/mcL (140-400); Red Blood Count 3.54 M/mcL (3.82-4.97); White Blood Count 8.4 K/mcL (4.3-11.1)
[2021-09-16 01:50] LABS: VBG HCO3 21 mEq/L (21-27); VBG PCO2 42 mmHg (41-51); VBG PH 7.32 pH Units (7.32-7.42); VBG PO2 117 mmHg (25-50)
[2021-09-16 02:04] LABS: Calcium 7.4 mg/dL (8.6-10.3); Potassium 3.7 mEq/L (3.5-5.1)
[2021-09-16] MEDS: *HR* Heparin 5,000 UNIT/ML VIAL SQ SCH ×3 (06:36→20:08)
[2021-09-16] MEDS: Sodium Bicarbonate 75 MEQ in 0.45 % Sodium Chloride 1,000 ML IVC SCH ×2 (06:37→20:09)
[2021-09-16] MEDS: Insulin LISPRO 300 UNITS/3 ML VIAL SUBQ SCH ×3 (08:57→16:30)
[2021-09-16] MEDS: Aspirin 81 MG TAB.CHEW PO SCH (09:55)
[2021-09-16] MEDS: Lactobacillus 1 EACH CAP.SPRINK PO SCH (09:56)
[2021-09-16] MEDS: Gabapentin 300 MG CAPSULE PO SCH (09:56)
[2021-09-16] MEDS: carvediloL 6.25 MG TABLET PO SCH ×2 (09:56→17:35)
[2021-09-16] MEDS: Vancomycin Oral Soln 125 MG/2.5 ML UDC PO SCH ×4 (10:01→20:07)
[2021-09-17] MEDS: *HR* Heparin 5,000 UNIT/ML VIAL SQ SCH ×3 (05:09→21:30)
[2021-09-17 07:53] LABS: Hematocrit 33.3 % (35.3-44.9); Hemoglobin 9.7 g/dL (11.5-15.4); Mean Corpuscular HGB Conc 29.1 g/dL (31.6-35.5); Mean Corpuscular Hemoglobin 26.9 pg (28.0-33.3); Mean Corpuscular Volume 92.2 fL (83.0-100.0); Mean Platelet Volume 8.9 fL (9.4-12.4); Platelet Count 221 K/mcL (140-400); Red Blood Count 3.61 M/mcL (3.82-4.97); Red Cell Distribution Width 16.3 % (11.5-14.5); White Blood Count 8.7 K/mcL (4.3-11.1)
[2021-09-17 08:09] LABS: Calcium 7.4 mg/dL (8.6-10.3); Potassium 3.4 mEq/L (3.5-5.1)
[2021-09-17] MEDS: Vancomycin Oral Soln 125 MG/2.5 ML UDC PO SCH ×4 (09:34→21:30)
[2021-09-17] MEDS: Aspirin 81 MG TAB.CHEW PO SCH (09:36)
[2021-09-17] MEDS: Acetaminophen 325 MG TABLET PO PRN (09:37)
[2021-09-17] MEDS: Lactobacillus 1 EACH CAP.SPRINK PO SCH (09:38)
[2021-09-17] MEDS: carvediloL 6.25 MG TABLET PO SCH ×2 (09:38→17:28)
[2021-09-17] MEDS: Gabapentin 300 MG CAPSULE PO SCH (09:39)
[2021-09-17] MEDS: Insulin LISPRO 300 UNITS/3 ML VIAL SUBQ SCH ×3 (10:25→17:29)
[2021-09-17] MEDS ORDERED: *HR* HYDROmorphone (PF) 1 MG/ML SYRINGE IVP ONE (23:29)
[2021-09-18] MEDS: *HR* Heparin 5,000 UNIT/ML VIAL SQ SCH ×3 (05:28→20:16)
[2021-09-18 06:57] LABS: Calcium 7.5 mg/dL (8.6-10.3); Potassium 3.4 mEq/L (3.5-5.1)
[2021-09-18 07:00] LABS: Hematocrit 35.7 % (35.3-44.9); Mean Corpuscular Hemoglobin 26.7 pg (28.0-33.3); Mean Corpuscular Volume 95.5 fL (83.0-100.0); Mean Platelet Volume 9.2 fL (9.4-12.4); Platelet Count 187 K/mcL (140-400); Red Blood Count 3.74 M/mcL (3.82-4.97); Red Cell Distribution Width 16.4 % (11.5-14.5); White Blood Count 7.6 K/mcL (4.3-11.1)
[2021-09-18] MEDS: Acetaminophen 325 MG TABLET PO PRN (09:45)
[2021-09-18] MEDS: Vancomycin Oral Soln 125 MG/2.5 ML UDC PO SCH ×4 (09:45→20:17)
[2021-09-18] MEDS: Gabapentin 300 MG CAPSULE PO SCH (09:46)
[2021-09-18] MEDS: Lactobacillus 1 EACH CAP.SPRINK PO SCH (09:46)
[2021-09-18] MEDS: Aspirin 81 MG TAB.CHEW PO SCH (09:46)
[2021-09-18] MEDS: Insulin LISPRO 300 UNITS/3 ML VIAL SUBQ SCH ×3 (09:47→18:06)
[2021-09-18] MEDS: carvediloL 6.25 MG TABLET PO SCH ×2 (09:49→18:06)
[2021-09-19 04:33] LABS: Hematocrit 31.1 % (35.3-44.9); Hemoglobin 9.4 g/dL (11.5-15.4); Mean Corpuscular HGB Conc 30.2 g/dL (31.6-35.5); Mean Corpuscular Hemoglobin 27.7 pg (28.0-33.3); Mean Corpuscular Volume 91.7 fL (83.0-100.0); Mean Platelet Volume 9.4 fL (9.4-12.4); Platelet Count 182 K/mcL (140-400); Red Blood Count 3.39 M/mcL (3.82-4.97); Red Cell Distribution Width 16.7 % (11.5-14.5); White Blood Count 6.7 K/mcL (4.3-11.1)
[2021-09-19 04:52] LABS: Calcium 7.5 mg/dL (8.6-10.3); Potassium 3.4 mEq/L (3.5-5.1)
[2021-09-19] MEDS: *HR* Heparin 5,000 UNIT/ML VIAL SQ SCH ×3 (06:01→20:32)
[2021-09-19] MEDS: Insulin LISPRO 300 UNITS/3 ML VIAL SUBQ SCH ×3 (09:29→17:03)
[2021-09-19] MEDS: Vancomycin Oral Soln 125 MG/2.5 ML UDC PO SCH ×4 (09:43→20:32)
[2021-09-19] MEDS: Gabapentin 300 MG CAPSULE PO SCH (09:44)
[2021-09-19] MEDS: Lactobacillus 1 EACH CAP.SPRINK PO SCH (09:44)
[2021-09-19] MEDS: Aspirin 81 MG TAB.CHEW PO SCH (09:44)
[2021-09-19] MEDS: carvediloL 6.25 MG TABLET PO SCH ×2 (09:49→17:16)
[2021-09-19] MEDS ORDERED: Potassium Chloride Elixir 20 MEQ/15 ML UDC PO ONE (10:07)
[2021-09-19] MEDS: Nystatin Cream 15 GM TUBE TP SCH (20:33)
[2021-09-20] MEDS: *HR* Heparin 5,000 UNIT/ML VIAL SQ SCH ×3 (05:59→22:06)
[2021-09-20 06:53] LABS: Eosinophils % 1.9 %; Hemoglobin 9.8 g/dL (11.5-15.4); Red Cell Distribution Width 16.7 % (11.5-14.5)
[2021-09-20 06:54] LABS: Basophils # 0.1 K/mcL (0.0-0.2); Basophils % 0.8 %; Eosinophils # 0.1 K/mcL (0.0-0.6); Hematocrit 33.1 % (35.3-44.9); Immature Granulocytes % 1.9 % (0-4); Lymphocytes # 1.4 K/mcL (0.6-4.6); Lymphocytes % 21.9 %; Mean Corpuscular HGB Conc 29.6 g/dL (31.6-35.5); Mean Corpuscular Hemoglobin 27.3 pg (28.0-33.3); Mean Corpuscular Volume 92.2 fL (83.0-100.0); Mean Platelet Volume 9.1 fL (9.4-12.4); Monocytes # 0.5 K/mcL (0.0-1.3); Neutrophils # 4.2 K/mcL (1.6-8.9); Platelet Count 169 K/mcL (140-400); Red Blood Count 3.59 M/mcL (3.82-4.97); Segmented Neutrophils % 65.5 %; White Blood Count 6.4 K/mcL (4.3-11.1)
[2021-09-20 07:19] LABS: Calcium 7.6 mg/dL (8.6-10.3); Potassium 3.4 mEq/L (3.5-5.1)
[2021-09-20] MEDS: Insulin LISPRO 300 UNITS/3 ML VIAL SUBQ SCH ×2 (10:58→18:19)
[2021-09-20] MEDS: Vancomycin Oral Soln 125 MG/2.5 ML UDC PO SCH (11:09)
[2021-09-20] MEDS: Nystatin Cream 15 GM TUBE TP SCH (12:26)
[2021-09-20] MEDS ORDERED: Lidocaine -MPF 2% 5 ML VIAL ONE ×2 (14:00→16:17)
[2021-09-20] MEDS ORDERED: Ondansetron 4 MG/2 ML VIAL ONE (14:00)
[2021-09-20] MEDS ORDERED: *HR* Propofol 200 MG/20 ML VIAL IVP ONE (14:01)
[2021-09-20] MEDS ORDERED: *HR* Midazolam HCl 2 MG/2 ML VIAL ONE (14:01)
[2021-09-20] MEDS ORDERED: *HR* FentaNYL (PF) 100 MCG/2 ML VIAL ONE (14:01)
[2021-09-20] MEDS ORDERED: *HR* HYDROmorphone PF 0.5 MG/0.5 ML SYRINGE IVP PRN (15:49)
[2021-09-20] MEDS ORDERED: Ondansetron 4 MG/2 ML VIAL IVP PRN ×2 (15:49→19:38)
[2021-09-20] MEDS ORDERED: *HR* OxyCODONE Immed Rel 5 MG TABLET PO PRN (15:49)
[2021-09-20] MEDS ORDERED: Vancomycin 1,000 MG VIAL ONE (15:54)
[2021-09-20] MEDS ORDERED: amLODIPine 5 MG TABLET PO SCH (16:00)
[2021-09-20] MEDS ORDERED: Lidocaine HCL 4 ML Topical Solution (Laryng-O-Jet Kit Sterile Pak) TP ONE (16:45)
[2021-09-20] MEDS ORDERED: *HR* Rocuronium Bromide 50 MG/5 ML VIAL ONE (16:46)
[2021-09-20] MEDS ORDERED: *HR* Succinylcholine 200 MG/10 ML VIAL IVP ONE (16:46)
[2021-09-20] MEDS ORDERED: carvediloL 6.25 MG TABLET PO SCH (17:00)
[2021-09-20] MEDS: Aspirin 81 MG TAB.CHEW PO SCH (18:13)
[2021-09-20] MEDS: Lactobacillus 1 EACH CAP.SPRINK PO SCH (18:13)
[2021-09-20] MEDS: Gabapentin 300 MG CAPSULE PO SCH (18:18)
[2021-09-20] MEDS ORDERED: Naloxone 0.4 MG/ML INJ IVP PRN (19:38)
[2021-09-20] MEDS ORDERED: Dextrose Gel 15 GM/37.5 ML TUBE PO PRN ×2 (19:38)
[2021-09-20] MEDS ORDERED: D5% in Water 1,000 ML IVC PRN (19:38)
[2021-09-20] MEDS ORDERED: *HR* Dextrose 50 % in Water (Syg) 50 ML SYRINGE IVP PRN (19:38)
[2021-09-20] MEDS ORDERED: Acetaminophen 325 MG TABLET PO PRN (19:38)
[2021-09-20] MEDS: carvediloL 6.25 MG TABLET PO SCH (23:01)
[2021-09-21] MEDS: Nystatin Cream 15 GM TUBE TP SCH ×2 (03:56→16:09)
[2021-09-21 04:18] LABS: Basophils % 0.5 %; Hematocrit 31.8 % (35.3-44.9); Hemoglobin 9.6 g/dL (11.5-15.4); Immature Granulocytes % 2.9 % (0-4); Lymphocytes # 0.6 K/mcL (0.6-4.6); Mean Corpuscular HGB Conc 30.2 g/dL (31.6-35.5); Mean Corpuscular Hemoglobin 27.6 pg (28.0-33.3); Mean Corpuscular Volume 91.4 fL (83.0-100.0); Mean Platelet Volume 9.7 fL (9.4-12.4); Monocytes # 0.1 K/mcL (0.0-1.3); Neutrophils # 4.7 K/mcL (1.6-8.9); Platelet Count 149 K/mcL (140-400); Red Blood Count 3.48 M/mcL (3.82-4.97); Red Cell Distribution Width 16.8 % (11.5-14.5); Segmented Neutrophils % 83.6 %; White Blood Count 5.6 K/mcL (4.3-11.1)
[2021-09-21 04:35] LABS: Calcium 7.3 mg/dL (8.6-10.3); Potassium 3.5 mEq/L (3.5-5.1)
[2021-09-21 04:37] LABS: Albumin 2.5 g/dL (3.5-5.7); Bilirubin,Direct 0.2 mg/dL (0.0-0.2); Bilirubin,Indirect 0.1 mg/dL (0.0-1.0); Bilirubin,Total 0.3 mg/dL (0.3-1.0); Globulin 2.6 g/dL (2.4-3.5); Total Protein 5.1 g/dL (6.4-8.9)
[2021-09-21] MEDS: *HR* Heparin 5,000 UNIT/ML VIAL SQ SCH ×2 (06:24→16:10)
[2021-09-21] MEDS ORDERED: carvediloL 6.25 MG TABLET PO SCH (08:00)
[2021-09-21] MEDS: Insulin LISPRO 300 UNITS/3 ML VIAL SUBQ SCH ×2 (08:22→16:10)
[2021-09-21] MEDS ORDERED: Lactobacillus 1 EACH CAP.SPRINK PO SCH (09:00)
[2021-09-21] MEDS ORDERED: Aspirin 81 MG TAB.CHEW PO SCH (09:00)
[2021-09-21] MEDS ORDERED: amLODIPine 5 MG TABLET PO SCH ×2 (09:00)
[2021-09-21] MEDS ORDERED: Gabapentin 300 MG CAPSULE PO SCH (09:00)
[2021-09-21 17:40] LABS: Influenza A PCR Negative (Negative); Influenza B PCR Negative (Negative); Resp. Syncytial Virus PCR Negative (Negative)
[2021-09-21 17:49] LABS: SARS-CoV-2 by PCR (In House) Negative (Negative)
[2021-09-21 19:36] VITALS: BP 127/66; PULSE 63; TEMP 97.9; O2SAT 92
== END 2021-09-21 23:30 | DRG 853 ==
LOC: 3BNU → SUATTDRO 09-06 00:25
PROVIDERS: ADMIT Student in an Organized Health Care Education/Training Program; ATTEND General Practice

== ENCOUNTER 2021-10-04 18:18 | Observation (INO) ==
[2021-10-04] MEDS ORDERED: Naloxone 0.4 MG/ML INJ IVP PRN (22:06)
[2021-10-04] MEDS ORDERED: Melatonin 3 MG TABLET PO PRN (22:06)
[2021-10-04] MEDS ORDERED: Dextrose Gel 15 GM/37.5 ML TUBE PO PRN ×2 (22:14)
[2021-10-04] MEDS ORDERED: D5% in Water 1,000 ML IVC PRN (22:14)
[2021-10-04] MEDS: *HR* Dextrose 50 % in Water (Syg) 50 ML SYRINGE IVP PRN (22:32)
[2021-10-04] MEDS ORDERED: Calcium Gluconate 1gm/50mL 1 GM/50 ML BAG IVPB ONE (22:58)
[2021-10-04] MEDS: Vancomycin Oral Soln 125 MG/2.5 ML UDC PO SCH (23:33)
[2021-10-04 23:49] LABS: ABG Base Excess 13 mEq/L (-2 to 3); ABG HCO3 40 mEq/L (21-27); ABG Oxygen Saturation 95 % (95-98); ABG PCO2 63 mmHg (35-45); ABG PH 7.41 pH Units (7.32-7.45); ABG PO2 76 mmHg (85-104); ABG TCO2 42 mEq/L (20-26)
[2021-10-05 01:50] LABS: Basophils # 0.1 K/mcL (0.0-0.2); Basophils % 1.6 %; Eosinophils # 0.2 K/mcL (0.0-0.6); Hematocrit 30.6 % (35.3-44.9); Hemoglobin 9.3 g/dL (11.5-15.4); Immature Granulocytes % 0.2 % (0-4); Lymphocytes % 40.2 %; Mean Corpuscular HGB Conc 30.4 g/dL (31.6-35.5); Mean Corpuscular Hemoglobin 26.9 pg (28.0-33.3); Mean Corpuscular Volume 88.4 fL (83.0-100.0); Mean Platelet Volume 9.3 fL (9.4-12.4); Monocytes # 0.4 K/mcL (0.0-1.3); Monocytes % 8.7 %; Neutrophils # 2.3 K/mcL (1.6-8.9); Platelet Count 177 K/mcL (140-400); Red Blood Count 3.46 M/mcL (3.82-4.97); Red Cell Distribution Width 17.7 % (11.5-14.5); Segmented Neutrophils % 45.3 %
[2021-10-05 02:13] LABS: Alanine Aminotransferase 13 Units/L (7-52); Albumin 2.2 g/dL (3.5-5.7); Albumin/Globulin Ratio 0.8 (1.1-2.2); Alkaline Phosphatase 456 Units/L (34-104); Aspartate Amino Transferase 33 Units/L (13-39); BUN/Creatinine Ratio 13 (6-26); Bilirubin,Total 0.4 mg/dL (0.3-1.0); Blood Urea Nitrogen 9 mg/dL (8-23); Calcium 6.4 mg/dL (8.6-10.3); Carbon Dioxide 36 mEq/L (23-29); Chloride 101 mEq/L (98-107); Globulin 2.8 g/dL (2.4-3.5); Glucose 88 mg/dL (70-105); Osmolality,Calculated 284 (280-300); Potassium 4.3 mEq/L (3.5-5.1); Sodium 138 mEq/L (136-145); eGFR For African Americans > 60 (> 60); eGFR For Non-African Americans > 60 (> 60)
[2021-10-05 02:14] LABS: BUN/Creatinine Ratio 13 (6-26); Blood Urea Nitrogen 9 mg/dL (8-23); Calcium 6.4 mg/dL (8.6-10.3); Carbon Dioxide 36 mEq/L (23-29); Chloride 102 mEq/L (98-107); Glucose 88 mg/dL (70-105); Magnesium 1.2 mg/dL (1.6-2.6); Osmolality,Calculated 284 (280-300); Phosphorous 2.9 mg/dL (2.7-4.5); Potassium 4.2 mEq/L (3.5-5.1); Sodium 138 mEq/L (136-145); eGFR For African Americans > 60 (> 60); eGFR For Non-African Americans > 60 (> 60)
[2021-10-05 02:26] LABS: Thyroid Stimulating Hormone 15.492 mcIU/mL (0.340-5.600)
[2021-10-05] MEDS: *HR* Heparin 5,000 UNIT/ML VIAL SQ SCH ×2 (06:01→16:51)
[2021-10-05] MEDS: Insulin LISPRO 300 UNITS/3 ML VIAL SUBQ SCH ×4 (07:44→21:34)
[2021-10-05] MEDS ORDERED: Calcium Gluconate 1gm/50mL 1 GM/50 ML BAG IVPB ONE (07:45)
[2021-10-05] MEDS: Vancomycin Oral Soln 125 MG/2.5 ML UDC PO SCH ×3 (08:12→21:35)
[2021-10-05] MEDS: amLODIPine 5 MG TABLET PO SCH (08:12)
[2021-10-05] MEDS ORDERED: Gabapentin 300 MG CAPSULE PO SCH (09:00)
[2021-10-05] MEDS ORDERED: Cholecalciferol (D-3) 1,000 UNIT (25MCG) TABLET PO SCH (15:30)
[2021-10-05] MEDS: *HR* Dextrose 50 % in Water (Syg) 50 ML SYRINGE IVP PRN (16:19)
[2021-10-05] MEDS: carvediloL 6.25 MG TABLET PO SCH (16:50)
[2021-10-06 04:04] LABS: Basophils # 0.1 K/mcL (0.0-0.2); Basophils % 0.9 %; Eosinophils # 0.2 K/mcL (0.0-0.6); Eosinophils % 3.3 %; Hematocrit 33.8 % (35.3-44.9); Hemoglobin 10.1 g/dL (11.5-15.4); Immature Granulocytes % 0.4 % (0-4); Lymphocytes # 1.6 K/mcL (0.6-4.6); Lymphocytes % 28.9 %; Mean Corpuscular HGB Conc 29.9 g/dL (31.6-35.5); Mean Corpuscular Hemoglobin 26.3 pg (28.0-33.3); Mean Platelet Volume 8.8 fL (9.4-12.4); Monocytes # 0.4 K/mcL (0.0-1.3); Monocytes % 7.4 %; Neutrophils # 3.2 K/mcL (1.6-8.9); Platelet Count 202 K/mcL (140-400); Red Blood Count 3.84 M/mcL (3.82-4.97); Red Cell Distribution Width 17.4 % (11.5-14.5); Segmented Neutrophils % 59.1 %; White Blood Count 5.4 K/mcL (4.3-11.1)
[2021-10-06 04:07] LABS: VBG Ionized Calcium 0.95 mmol/L (1.15-1.35)
[2021-10-06 04:16] LABS: BUN/Creatinine Ratio 13 (6-26); Blood Urea Nitrogen 10 mg/dL (8-23); Calcium 7.1 mg/dL (8.6-10.3); Carbon Dioxide 35 mEq/L (23-29); Chloride 100 mEq/L (98-107); Glucose 115 mg/dL (70-105); Magnesium 1.4 mg/dL (1.6-2.6); Osmolality,Calculated 286 (280-300); Phosphorous 3.4 mg/dL (2.7-4.5); Potassium 4.3 mEq/L (3.5-5.1); Sodium 138 mEq/L (136-145); eGFR For African Americans > 60 (> 60); eGFR For Non-African Americans > 60 (> 60)
[2021-10-06] MEDS: *HR* Heparin 5,000 UNIT/ML VIAL SQ SCH ×2 (05:51→17:24)
[2021-10-06] MEDS ORDERED: LEVOTHYROXINE SODIUM 200 MCG PO SCH (09:00)
[2021-10-06] MEDS ORDERED: DULOXETINE HCL 60 MG PO SCH (09:00)
[2021-10-06] MEDS ORDERED: NON-FORMULARY MEDICATION 1 EACH EACH (Amlodipine Besylate 10 MG Tablet) PO SCH (09:00)
[2021-10-06] MEDS: amLODIPine 5 MG TABLET PO SCH (10:09)
[2021-10-06] MEDS: Ascorbic Acid 500 MG TABLET PO SCH (10:09)
[2021-10-06] MEDS: Insulin LISPRO 300 UNITS/3 ML VIAL SUBQ SCH ×4 (10:09→20:45)
[2021-10-06] MEDS: Aspirin 81 MG TAB.CHEW PO SCH (10:09)
[2021-10-06] MEDS: Gabapentin 300 MG CAPSULE PO SCH (10:10)
[2021-10-06] MEDS: carvediloL 6.25 MG TABLET PO SCH ×2 (10:15→17:25)
[2021-10-06] MEDS: Vancomycin Oral Soln 125 MG/2.5 ML UDC PO SCH ×3 (10:16→20:45)
[2021-10-07] MEDS: *HR* Heparin 5,000 UNIT/ML VIAL SQ SCH (05:27)
[2021-10-07] MEDS: Insulin LISPRO 300 UNITS/3 ML VIAL SUBQ SCH (08:01)
[2021-10-07] MEDS: Aspirin 81 MG TAB.CHEW PO SCH (08:35)
[2021-10-07] MEDS: Gabapentin 300 MG CAPSULE PO SCH (08:35)
[2021-10-07] MEDS: carvediloL 6.25 MG TABLET PO SCH (08:36)
[2021-10-07] MEDS: amLODIPine 5 MG TABLET PO SCH (08:36)
[2021-10-07] MEDS: Ascorbic Acid 500 MG TABLET PO SCH (08:36)
[2021-10-07] MEDS: Vancomycin Oral Soln 125 MG/2.5 ML UDC PO SCH (08:37)
[2021-10-07 11:49] VITALS: BP 139/69; PULSE 69; TEMP 97.6; O2SAT 93
[2021-10-08] MEDS ORDERED: Vancomycin Oral Soln 125 MG/2.5 ML UDC PO SCH (09:00)
== END 2021-10-07 13:56 ==
LOC: 3NENU
PROVIDERS: ADMIT Student in an Organized Health Care Education/Training Program; ATTEND Student in an Organized Health Care Education/Training Program

== ENCOUNTER 2021-10-25 13:38 | Inpatient (IN) ==
[2021-10-25] MEDS ORDERED: Naloxone 0.4 MG/ML INJ IVP PRN (19:51)
[2021-10-26] MEDS ORDERED: Dextrose Gel 15 GM/37.5 ML TUBE PO PRN ×2 (01:02)
[2021-10-26] MEDS ORDERED: D5% in Water 1,000 ML IVC PRN (01:02)
[2021-10-26] MEDS ORDERED: *HR* Dextrose 50 % in Water (Syg) 50 ML SYRINGE IVP PRN (01:02)
[2021-10-26] MEDS ORDERED: Calcium Gluconate 1gm/50mL 1 GM/50 ML BAG IVPB ONE (01:06)
[2021-10-26] MEDS ORDERED: 0.9 % Sodium Chloride 1,000 ML IVC ONE (01:40)
[2021-10-26] MEDS: Ipratropium 1 PUFF INHALER IH SCH ×6 (04:05→23:54)
[2021-10-26 04:10] LABS: ABG Base Excess 1 mEq/L (-2 to 3); ABG HCO3 27 mEq/L (21-27); ABG Oxygen Saturation 87 % (95-98); ABG PCO2 49 mmHg (35-45); ABG PH 7.34 pH Units (7.32-7.45); ABG PO2 56 mmHg (85-104); ABG TCO2 28 mEq/L (20-26)
[2021-10-26] MEDS: Insulin LISPRO 300 UNITS/3 ML VIAL SUBQ SCH ×3 (05:51→16:56)
[2021-10-26] MEDS ORDERED: *HR* Heparin 5,000 UNIT/ML VIAL SQ SCH (06:00)
[2021-10-26 06:12] LABS: Hematocrit 28.7 % (35.3-44.9); Hemoglobin 8.4 g/dL (11.5-15.4); Immature Granulocytes % 2.1 % (0-4); Lymphocytes # 0.8 K/mcL (0.6-4.6); Lymphocytes % 24.2 %; Mean Corpuscular HGB Conc 29.3 g/dL (31.6-35.5); Mean Corpuscular Hemoglobin 26.6 pg (28.0-33.3); Mean Corpuscular Volume 90.8 fL (83.0-100.0); Mean Platelet Volume 9.9 fL (9.4-12.4); Monocytes # 0.3 K/mcL (0.0-1.3); Monocytes % 9.4 %; Neutrophils # 2.1 K/mcL (1.6-8.9); Platelet Count 265 K/mcL (140-400); Red Blood Count 3.16 M/mcL (3.82-4.97); Red Cell Distribution Width 18.4 % (11.5-14.5); Segmented Neutrophils % 64.3 %; White Blood Count 3.3 K/mcL (4.3-11.1)
[2021-10-26 06:24] LABS: Prothrombin Time 11.6 Seconds (9.4-12.1)
[2021-10-26 06:47] LABS: Alanine Aminotransferase 12 Units/L (7-52); Albumin/Globulin Ratio 0.9 (1.1-2.2); Alkaline Phosphatase 449 Units/L (34-104); Aspartate Amino Transferase 11 Units/L (13-39); BUN/Creatinine Ratio 19 (6-26); Bilirubin,Total 0.3 mg/dL (0.3-1.0); Blood Urea Nitrogen 55 mg/dL (8-23); Calcium 7.4 mg/dL (8.6-10.3); Carbon Dioxide 25 mEq/L (23-29); Chloride 104 mEq/L (98-107); Globulin 3.3 g/dL (2.4-3.5); Glucose 150 mg/dL (70-105); Magnesium 2.8 mg/dL (1.6-2.6); Osmolality,Calculated 304 (280-300); Phosphorous 6.7 mg/dL (2.7-4.5); Sodium 138 mEq/L (136-145); Total Protein 6.3 g/dL (6.4-8.9); Troponin I < 0.03 ng/mL (< 0.04); eGFR For African Americans 20 (> 60); eGFR For Non-African Americans 17 (> 60)
[2021-10-26] MEDS: Dexamethasone Sodium Phos/PF 10 MG/ML VIAL IVP SCH (08:00)
[2021-10-26] MEDS: Vancomycin Oral Soln 125 MG/2.5 ML UDC PO SCH (08:00)
[2021-10-26 10:26] LABS: Bacteria,Urine Moderate per hpf (None-Few); Bilirubin,Urine Negative (Negative); Blood,Urine Small (Negative); Budding Yeast,Urine Many per hpf (None Seen); Clarity,Urine Ex.Turbid (Clear); Color,Urine Yellow (Yellow); Glucose,Urine (UA) Normal (Normal); Hyaline Casts,Urine Many per lpf (None Seen); Ketones,Urine Negative (Negative); Leukocyte Esterase,Urine Large (Negative); Mucus,Urine Many per lpf (None-Few); Nitrite,Urine Negative (Negative); PH,Urine 5.5 pH Units (5.0-8.0); Protein,Urine 100 mg/dL (Neg-Trace); RBC,Urine TNTC per hpf (0-3); Renal Epithelial Cells,Urine Moderate per hpf (None-Few); Specific Gravity,Urine 1.016 (1.010-1.025); Squamous Epithelial Cell,Urine Few per hpf (None-Few); Urobilinogen,Urine Normal (Normal); WBC,Urine TNTC per hpf (0-3)
[2021-10-26 12:12] LABS: Blood Gas Pressure Support 18 cm H2O; Mixed Venous Blood pCO2 49 mmHg (44-46); Mixed Venous Blood pH 7.34 pH Units (7.34-7.36); Mixed Venous Blood pO2 49 mmHg (35-45)
[2021-10-26] MEDS: *HR* Heparin 5,000 UNIT/ML VIAL SQ SCH (20:55)
[2021-10-27] MEDS ORDERED: *HR* HYDROcodone/Acet 5/325 mg TABLET PO ONE (00:04)
[2021-10-27] MEDS: Ipratropium 1 PUFF INHALER IH SCH ×5 (04:04→19:52)
[2021-10-27] MEDS: *HR* Heparin 5,000 UNIT/ML VIAL SQ SCH ×3 (05:37→21:17)
[2021-10-27 06:46] LABS: Calcium 7.4 mg/dL (8.6-10.3); Potassium 4.8 mEq/L (3.5-5.1)
[2021-10-27 07:12] LABS: Basophils % 0.2 %; Hematocrit 27.9 % (35.3-44.9); Hemoglobin 8.6 g/dL (11.5-15.4); Immature Granulocytes % 0.9 % (0-4); Lymphocytes # 1.1 K/mcL (0.6-4.6); Lymphocytes % 19.5 %; Mean Corpuscular HGB Conc 30.8 g/dL (31.6-35.5); Mean Corpuscular Volume 90.9 fL (83.0-100.0); Mean Platelet Volume 9.3 fL (9.4-12.4); Monocytes # 0.4 K/mcL (0.0-1.3); Monocytes % 7.9 %; Platelet Count 267 K/mcL (140-400); Red Blood Count 3.07 M/mcL (3.82-4.97); Red Cell Distribution Width 18.8 % (11.5-14.5); Segmented Neutrophils % 71.5 %
[2021-10-27 07:14] LABS: White Blood Count 5.6 K/mcL (4.3-11.1)
[2021-10-27] MEDS: Insulin LISPRO 300 UNITS/3 ML VIAL SUBQ SCH ×3 (08:43→17:06)
[2021-10-27] MEDS: Dexamethasone Sodium Phos/PF 10 MG/ML VIAL IVP SCH ×2 (08:43→12:04)
[2021-10-27] MEDS: Vancomycin Oral Soln 125 MG/2.5 ML UDC PO SCH (08:43)
[2021-10-27] MEDS: Gabapentin 300 MG CAPSULE PO SCH (12:04)
[2021-10-27] MEDS: carvediloL 6.25 MG TABLET PO SCH (17:06)
[2021-10-27] MEDS: Magnesium Oxide 400 MG TABLET PO SCH (21:17)
[2021-10-27] MEDS: Acetaminophen 325 MG TABLET PO PRN (21:24)
[2021-10-28] MEDS: Ipratropium 1 PUFF INHALER IH SCH ×7 (00:01→23:22)
[2021-10-28 02:40] LABS: Potassium 5.1 mEq/L (3.5-5.1)
[2021-10-28] MEDS: *HR* Heparin 5,000 UNIT/ML VIAL SQ SCH ×3 (05:15→21:55)
[2021-10-28] MEDS ORDERED: *HR* Labetalol 20 MG/4 ML SYRINGE IVP ONE (06:15)
[2021-10-28] MEDS: Vancomycin Oral Soln 125 MG/2.5 ML UDC PO SCH (09:08)
[2021-10-28] MEDS: Dexamethasone Sodium Phos/PF 10 MG/ML VIAL IVP SCH (09:08)
[2021-10-28] MEDS: Lactobacillus 1 EACH CAP.SPRINK PO SCH (09:09)
[2021-10-28] MEDS: amLODIPine 5 MG TABLET PO SCH (09:09)
[2021-10-28] MEDS: Magnesium Oxide 400 MG TABLET PO SCH ×2 (09:10→21:33)
[2021-10-28] MEDS: carvediloL 6.25 MG TABLET PO SCH ×2 (09:10→16:52)
[2021-10-28] MEDS: Insulin LISPRO 300 UNITS/3 ML VIAL SUBQ SCH ×4 (09:10→21:33)
[2021-10-28] MEDS: Gabapentin 300 MG CAPSULE PO SCH (09:10)
[2021-10-28] MEDS: Aspirin 81 MG TAB.CHEW PO SCH (09:10)
[2021-10-29] MEDS: Ipratropium 1 PUFF INHALER IH SCH ×6 (03:41→23:40)
[2021-10-29] MEDS: *HR* Heparin 5,000 UNIT/ML VIAL SQ SCH ×2 (05:19→14:24)
[2021-10-29] MEDS: Dexamethasone Sodium Phos/PF 10 MG/ML VIAL IVP SCH (08:05)
[2021-10-29] MEDS: Magnesium Oxide 400 MG TABLET PO SCH ×2 (08:05→20:44)
[2021-10-29] MEDS: Vancomycin Oral Soln 125 MG/2.5 ML UDC PO SCH (08:05)
[2021-10-29] MEDS: Lactobacillus 1 EACH CAP.SPRINK PO SCH (08:05)
[2021-10-29] MEDS: Aspirin 81 MG TAB.CHEW PO SCH (08:06)
[2021-10-29] MEDS: Gabapentin 300 MG CAPSULE PO SCH (08:06)
[2021-10-29] MEDS: Benzonatate 100 MG CAPSULE PO PRN ×2 (08:06→14:25)
[2021-10-29] MEDS: carvediloL 6.25 MG TABLET PO SCH ×2 (08:06→18:14)
[2021-10-29] MEDS: amLODIPine 5 MG TABLET PO SCH (08:06)
[2021-10-29] MEDS: Insulin LISPRO 300 UNITS/3 ML VIAL SUBQ SCH ×4 (08:07→20:44)
[2021-10-29] MEDS: *HR* Enoxaparin 40 MG/0.4 ML SYRINGE SQ SCH (18:14)
[2021-10-30 02:02] LABS: Calcium 6.9 mg/dL (8.6-10.3)
[2021-10-30] MEDS: Ipratropium 1 PUFF INHALER IH SCH ×6 (03:36→23:40)
[2021-10-30] MEDS: *HR* Enoxaparin 40 MG/0.4 ML SYRINGE SQ SCH ×2 (05:26→17:22)
[2021-10-30] MEDS: Vancomycin Oral Soln 125 MG/2.5 ML UDC PO SCH (07:37)
[2021-10-30] MEDS: carvediloL 6.25 MG TABLET PO SCH ×2 (07:38→16:17)
[2021-10-30] MEDS: Aspirin 81 MG TAB.CHEW PO SCH (07:38)
[2021-10-30] MEDS: Gabapentin 300 MG CAPSULE PO SCH (07:38)
[2021-10-30] MEDS: Lactobacillus 1 EACH CAP.SPRINK PO SCH (07:38)
[2021-10-30] MEDS: Magnesium Oxide 400 MG TABLET PO SCH ×2 (07:38→21:18)
[2021-10-30] MEDS: amLODIPine 5 MG TABLET PO SCH (07:38)
[2021-10-30] MEDS: Insulin LISPRO 300 UNITS/3 ML VIAL SUBQ SCH ×4 (07:39→21:18)
[2021-10-30] MEDS: Dexamethasone Sodium Phos/PF 10 MG/ML VIAL IVP SCH (07:39)
[2021-10-31 02:26] LABS: Basophils % 0.2 %; Hemoglobin 9.1 g/dL (11.5-15.4); Immature Granulocytes % 1.4 % (0-4); Lymphocytes # 0.5 K/mcL (0.6-4.6); Lymphocytes % 10.4 %; Mean Corpuscular HGB Conc 29.4 g/dL (31.6-35.5); Mean Corpuscular Hemoglobin 26.7 pg (28.0-33.3); Mean Corpuscular Volume 90.9 fL (83.0-100.0); Mean Platelet Volume 9.4 fL (9.4-12.4); Monocytes # 0.4 K/mcL (0.0-1.3); Monocytes % 7.1 %; Neutrophils # 4.2 K/mcL (1.6-8.9); Platelet Count 229 K/mcL (140-400); Red Blood Count 3.41 M/mcL (3.82-4.97); Red Cell Distribution Width 18.1 % (11.5-14.5); Segmented Neutrophils % 80.9 %; White Blood Count 5.2 K/mcL (4.3-11.1)
[2021-10-31 02:43] LABS: Calcium 6.9 mg/dL (8.6-10.3); Potassium 4.8 mEq/L (3.5-5.1)
[2021-10-31] MEDS: Ipratropium 1 PUFF INHALER IH SCH ×6 (03:52→23:51)
[2021-10-31] MEDS: *HR* Enoxaparin 40 MG/0.4 ML SYRINGE SQ SCH (05:45)
[2021-10-31] MEDS: Gabapentin 300 MG CAPSULE PO SCH (09:17)
[2021-10-31] MEDS: Lactobacillus 1 EACH CAP.SPRINK PO SCH (09:17)
[2021-10-31] MEDS: Magnesium Oxide 400 MG TABLET PO SCH ×2 (09:17→19:51)
[2021-10-31] MEDS: Aspirin 81 MG TAB.CHEW PO SCH (09:17)
[2021-10-31] MEDS: carvediloL 6.25 MG TABLET PO SCH ×2 (09:17→18:06)
[2021-10-31] MEDS: amLODIPine 5 MG TABLET PO SCH (09:17)
[2021-10-31] MEDS: Dexamethasone Sodium Phos/PF 10 MG/ML VIAL IVP SCH (09:18)
[2021-10-31] MEDS: Insulin LISPRO 300 UNITS/3 ML VIAL SUBQ SCH ×4 (09:18→19:51)
[2021-10-31] MEDS ORDERED: *HR* LORazepam 2 MG/ML VIAL IVP PRN (10:03)
[2021-10-31] MEDS ORDERED: Calcium Gluconate 1gm/50mL 1 GM/50 ML BAG IVPB ONE (10:28)
[2021-11-01 02:19] LABS: VBG Ionized Calcium 1.08 mmol/L (1.15-1.35)
[2021-11-01 02:31] LABS: Mean Corpuscular Volume 92.4 fL (83.0-100.0); Mean Platelet Volume 9.4 fL (9.4-12.4); Red Cell Distribution Width 18.2 % (11.5-14.5)
[2021-11-01 02:33] LABS: Eosinophils % 0.1 %; Hematocrit 34.1 % (35.3-44.9); Immature Granulocytes % 0.8 % (0-4); Lymphocytes # 0.9 K/mcL (0.6-4.6); Lymphocytes % 10.3 %; Mean Corpuscular HGB Conc 29.3 g/dL (31.6-35.5); Mean Corpuscular Hemoglobin 27.1 pg (28.0-33.3); Monocytes # 0.5 K/mcL (0.0-1.3); Monocytes % 5.2 %; Neutrophils # 7.3 K/mcL (1.6-8.9); Platelet Count 236 K/mcL (140-400); Red Blood Count 3.69 M/mcL (3.82-4.97); Segmented Neutrophils % 83.6 %; White Blood Count 8.7 K/mcL (4.3-11.1)
[2021-11-01 02:37] LABS: BUN/Creatinine Ratio 52 (6-26); Blood Urea Nitrogen 56 mg/dL (8-23); Carbon Dioxide 30 mEq/L (23-29); Chloride 105 mEq/L (98-107); Glucose 194 mg/dL (70-105); Osmolality,Calculated 305 (280-300); Potassium 5.2 mEq/L (3.5-5.1); Sodium 137 mEq/L (136-145); eGFR For African Americans > 60 (> 60); eGFR For Non-African Americans 52 (> 60)
[2021-11-01 03:16] LABS: Platelet Estimate Normal (Normal)
[2021-11-01] MEDS: Ipratropium 1 PUFF INHALER IH SCH ×6 (03:37→23:32)
[2021-11-01] MEDS ORDERED: Calcium Gluconate 1gm/50mL 1 GM/50 ML BAG IVPB ONE ×2 (07:30)
[2021-11-01] MEDS: Lactobacillus 1 EACH CAP.SPRINK PO SCH (09:13)
[2021-11-01] MEDS: Insulin LISPRO 300 UNITS/3 ML VIAL SUBQ SCH ×4 (09:13→20:19)
[2021-11-01] MEDS: carvediloL 6.25 MG TABLET PO SCH ×2 (09:14→16:25)
[2021-11-01] MEDS: Magnesium Oxide 400 MG TABLET PO SCH ×2 (09:14→20:14)
[2021-11-01] MEDS: Vancomycin Oral Soln 125 MG/2.5 ML UDC PO SCH (09:14)
[2021-11-01] MEDS: amLODIPine 5 MG TABLET PO SCH (09:15)
[2021-11-01] MEDS: Aspirin 81 MG TAB.CHEW PO SCH (09:15)
[2021-11-01] MEDS: Gabapentin 300 MG CAPSULE PO SCH (09:15)
[2021-11-01] MEDS: Dexamethasone Sodium Phos/PF 10 MG/ML VIAL IVP SCH (09:16)
[2021-11-01] MEDS: *HR* LORazepam 2 MG/ML VIAL IVP PRN (09:16)
[2021-11-01] MEDS ORDERED: Furosemide 40 MG/4 ML VIAL IVP ONE (09:24)
[2021-11-01 20:32] LABS: ABG Base Excess -1 mEq/L (-2 to 3); ABG HCO3 30 mEq/L (21-27); ABG Oxygen Saturation 79 % (95-98); ABG PCO2 89 mmHg (35-45); ABG PH 7.13 pH Units (7.32-7.45); ABG PO2 60 mmHg (85-104); ABG TCO2 32 mEq/L (20-26)
[2021-11-02 02:18] LABS: Hemoglobin 9.8 g/dL (11.5-15.4)
[2021-11-02 02:19] LABS: Hematocrit 33.5 % (35.3-44.9); Mean Corpuscular HGB Conc 29.3 g/dL (31.6-35.5); Mean Corpuscular Hemoglobin 27.5 pg (28.0-33.3); Mean Corpuscular Volume 94.1 fL (83.0-100.0); Mean Platelet Volume 9.2 fL (9.4-12.4); Monocytes # 0.3 K/mcL (0.0-1.3); Platelet Count 185 K/mcL (140-400); Red Blood Count 3.56 M/mcL (3.82-4.97); Red Cell Distribution Width 17.8 % (11.5-14.5); White Blood Count 8.4 K/mcL (4.3-11.1)
[2021-11-02 02:38] LABS: Calcium 7.4 mg/dL (8.6-10.3); Potassium 5.4 mEq/L (3.5-5.1)
[2021-11-02] MEDS: Ipratropium 1 PUFF INHALER IH SCH ×6 (04:20→23:42)
[2021-11-02 04:35] LABS: ABG Base Excess 2 mEq/L (-2 to 3); ABG HCO3 31 mEq/L (21-27); ABG Oxygen Saturation 86 % (95-98); ABG PCO2 74 mmHg (35-45); ABG PH 7.22 pH Units (7.32-7.45); ABG PO2 64 mmHg (85-104); ABG TCO2 33 mEq/L (20-26); Blood Gas Pressure Support 12 cm H2O
[2021-11-02 04:49] LABS: Lymphocytes # 1.7 K/mcL (0.6-4.6); Neutrophils # 6.4 K/mcL (1.6-8.9)
[2021-11-02 04:50] LABS: Platelet Estimate Normal (Normal)
[2021-11-02] MEDS: Aspirin 81 MG TAB.CHEW PO SCH (08:21)
[2021-11-02] MEDS: Gabapentin 300 MG CAPSULE PO SCH (08:21)
[2021-11-02] MEDS: carvediloL 6.25 MG TABLET PO SCH ×2 (08:21→17:01)
[2021-11-02] MEDS: Lactobacillus 1 EACH CAP.SPRINK PO SCH (08:21)
[2021-11-02] MEDS: amLODIPine 5 MG TABLET PO SCH (08:21)
[2021-11-02] MEDS: Magnesium Oxide 400 MG TABLET PO SCH ×2 (08:22→20:40)
[2021-11-02] MEDS: Dexamethasone Sodium Phos/PF 10 MG/ML VIAL IVP SCH (08:22)
[2021-11-02] MEDS: Insulin LISPRO 300 UNITS/3 ML VIAL SUBQ SCH ×4 (08:22→20:40)
[2021-11-02] MEDS ORDERED: Furosemide 40 MG/4 ML VIAL IVP ONE (14:01)
[2021-11-02] MEDS: Budesonide/Formoterol 160/4.5 1 PUFF INH IH SCH (19:56)
[2021-11-02] MEDS: Melatonin 3 MG TABLET PO PRN (20:40)
[2021-11-03] MEDS: Ipratropium 1 PUFF INHALER IH SCH ×6 (03:44→23:21)
[2021-11-03 05:41] LABS: Basophils % 0.1 %; Eosinophils % 0.1 %; Hematocrit 31.3 % (35.3-44.9); Hemoglobin 9.3 g/dL (11.5-15.4); Immature Granulocytes % 1.4 % (0-4); Lymphocytes % 11.4 %; Mean Corpuscular HGB Conc 29.7 g/dL (31.6-35.5); Mean Corpuscular Hemoglobin 27.8 pg (28.0-33.3); Mean Corpuscular Volume 93.7 fL (83.0-100.0); Mean Platelet Volume 10.3 fL (9.4-12.4); Monocytes # 0.7 K/mcL (0.0-1.3); Monocytes % 7.9 %; Platelet Count 196 K/mcL (140-400); Red Blood Count 3.34 M/mcL (3.82-4.97); Segmented Neutrophils % 79.1 %; White Blood Count 8.9 K/mcL (4.3-11.1)
[2021-11-03 05:52] LABS: Calcium 7.3 mg/dL (8.6-10.3); Potassium 5.3 mEq/L (3.5-5.1)
[2021-11-03] MEDS: Budesonide/Formoterol 160/4.5 1 PUFF INH IH SCH ×2 (08:17→19:59)
[2021-11-03] MEDS: Insulin LISPRO 300 UNITS/3 ML VIAL SUBQ SCH ×4 (09:30→21:54)
[2021-11-03] MEDS: Dexamethasone Sodium Phos/PF 10 MG/ML VIAL IVP SCH (09:31)
[2021-11-03] MEDS: Furosemide 40 MG/4 ML VIAL IVP SCH (09:31)
[2021-11-03] MEDS: Gabapentin 300 MG CAPSULE PO SCH (09:32)
[2021-11-03] MEDS: amLODIPine 5 MG TABLET PO SCH (09:32)
[2021-11-03] MEDS: Magnesium Oxide 400 MG TABLET PO SCH (09:33)
[2021-11-03] MEDS: Lactobacillus 1 EACH CAP.SPRINK PO SCH (09:33)
[2021-11-03] MEDS: carvediloL 6.25 MG TABLET PO SCH ×2 (09:34→17:30)
[2021-11-03] MEDS: Aspirin 81 MG TAB.CHEW PO SCH (09:34)
[2021-11-03] MEDS: Vancomycin Oral Soln 125 MG/2.5 ML UDC PO SCH (09:37)
[2021-11-03] MEDS: Acetaminophen 325 MG TABLET PO PRN (19:52)
[2021-11-04] MEDS: Ipratropium 1 PUFF INHALER IH SCH ×6 (03:50→23:32)
[2021-11-04 07:11] LABS: Basophils % 0.1 %; Eosinophils % 0.3 %; Hematocrit 30.1 % (35.3-44.9); Immature Granulocytes % 0.8 % (0-4); Lymphocytes # 1.5 K/mcL (0.6-4.6); Lymphocytes % 19.1 %; Mean Corpuscular HGB Conc 29.9 g/dL (31.6-35.5); Mean Corpuscular Hemoglobin 27.5 pg (28.0-33.3); Mean Platelet Volume 9.6 fL (9.4-12.4); Monocytes # 0.6 K/mcL (0.0-1.3); Monocytes % 7.9 %; Neutrophils # 5.7 K/mcL (1.6-8.9); Platelet Count 187 K/mcL (140-400); Red Blood Count 3.27 M/mcL (3.82-4.97); Red Cell Distribution Width 18.2 % (11.5-14.5); Segmented Neutrophils % 71.8 %
[2021-11-04 07:33] LABS: BUN/Creatinine Ratio 60 (6-26); Blood Urea Nitrogen 54 mg/dL (8-23); Calcium 7.3 mg/dL (8.6-10.3); Carbon Dioxide 31 mEq/L (23-29); Chloride 105 mEq/L (98-107); Glucose 160 mg/dL (70-105); Magnesium 2.1 mg/dL (1.6-2.6); Osmolality,Calculated 304 (280-300); Potassium 5.1 mEq/L (3.5-5.1); Sodium 138 mEq/L (136-145); eGFR For African Americans > 60 (> 60); eGFR For Non-African Americans > 60 (> 60)
[2021-11-04] MEDS: Budesonide/Formoterol 160/4.5 1 PUFF INH IH SCH ×2 (08:35→19:28)
[2021-11-04] MEDS: amLODIPine 5 MG TABLET PO SCH (10:31)
[2021-11-04] MEDS: Insulin LISPRO 300 UNITS/3 ML VIAL SUBQ SCH ×4 (10:31→20:43)
[2021-11-04] MEDS: Gabapentin 300 MG CAPSULE PO SCH (10:31)
[2021-11-04] MEDS: carvediloL 6.25 MG TABLET PO SCH ×2 (10:32→16:39)
[2021-11-04] MEDS: Aspirin 81 MG TAB.CHEW PO SCH (10:32)
[2021-11-04] MEDS: Dexamethasone Sodium Phos/PF 10 MG/ML VIAL IVP SCH (10:32)
[2021-11-04] MEDS: Lactobacillus 1 EACH CAP.SPRINK PO SCH (10:32)
[2021-11-04] MEDS: Vancomycin Oral Soln 125 MG/2.5 ML UDC PO SCH (10:33)
[2021-11-04] MEDS: Furosemide 40 MG/4 ML VIAL IVP SCH (10:33)
[2021-11-04] MEDS: Acetaminophen 325 MG TABLET PO PRN ×2 (10:59→20:44)
[2021-11-05 02:06] LABS: Hemoglobin 8.6 g/dL (11.5-15.4); Immature Granulocytes % 0.8 % (0-4); Lymphocytes % 17.3 %; Mean Corpuscular HGB Conc 30.7 g/dL (31.6-35.5); Mean Corpuscular Volume 91.2 fL (83.0-100.0); Mean Platelet Volume 10.1 fL (9.4-12.4); Monocytes # 0.4 K/mcL (0.0-1.3); Monocytes % 6.5 %; Neutrophils # 4.5 K/mcL (1.6-8.9); Platelet Count 187 K/mcL (140-400); Red Blood Count 3.07 M/mcL (3.82-4.97); Red Cell Distribution Width 17.8 % (11.5-14.5); Segmented Neutrophils % 75.4 %
[2021-11-05 02:28] LABS: BUN/Creatinine Ratio 57 (6-26); Blood Urea Nitrogen 48 mg/dL (8-23); Carbon Dioxide 30 mEq/L (23-29); Chloride 103 mEq/L (98-107); Glucose 221 mg/dL (70-105); Magnesium 1.9 mg/dL (1.6-2.6); Osmolality,Calculated 305 (280-300); Sodium 138 mEq/L (136-145); eGFR For African Americans > 60 (> 60); eGFR For Non-African Americans > 60 (> 60)
[2021-11-05] MEDS: Ipratropium 1 PUFF INHALER IH SCH ×6 (03:26→23:17)
[2021-11-05] MEDS: Budesonide/Formoterol 160/4.5 1 PUFF INH IH SCH ×2 (07:22→20:25)
[2021-11-05] MEDS: carvediloL 6.25 MG TABLET PO SCH ×2 (08:45→16:23)
[2021-11-05] MEDS: Lactobacillus 1 EACH CAP.SPRINK PO SCH (08:45)
[2021-11-05] MEDS: Gabapentin 300 MG CAPSULE PO SCH (08:45)
[2021-11-05] MEDS: Aspirin 81 MG TAB.CHEW PO SCH (08:45)
[2021-11-05] MEDS: Dexamethasone Sodium Phos/PF 10 MG/ML VIAL IVP SCH (08:46)
[2021-11-05] MEDS: amLODIPine 5 MG TABLET PO SCH (08:46)
[2021-11-05] MEDS: Furosemide 40 MG/4 ML VIAL IVP SCH (08:46)
[2021-11-05] MEDS: Insulin LISPRO 300 UNITS/3 ML VIAL SUBQ SCH ×4 (08:47→20:49)
[2021-11-05] MEDS: Vancomycin Oral Soln 125 MG/2.5 ML UDC PO SCH (08:47)
[2021-11-06] MEDS: Acetaminophen 325 MG TABLET PO PRN (00:01)
[2021-11-06 01:58] LABS: Basophils % 0.2 %; Eosinophils % 0.2 %; Hematocrit 28.3 % (35.3-44.9); Hemoglobin 8.4 g/dL (11.5-15.4); Immature Granulocytes % 0.8 % (0-4); Lymphocytes # 1.4 K/mcL (0.6-4.6); Lymphocytes % 21.9 %; Mean Corpuscular HGB Conc 29.7 g/dL (31.6-35.5); Mean Corpuscular Hemoglobin 26.9 pg (28.0-33.3); Mean Corpuscular Volume 90.7 fL (83.0-100.0); Mean Platelet Volume 9.5 fL (9.4-12.4); Monocytes # 0.5 K/mcL (0.0-1.3); Monocytes % 8.6 %; Neutrophils # 4.3 K/mcL (1.6-8.9); Platelet Count 192 K/mcL (140-400); Red Blood Count 3.12 M/mcL (3.82-4.97); Red Cell Distribution Width 17.9 % (11.5-14.5); Segmented Neutrophils % 68.3 %; White Blood Count 6.3 K/mcL (4.3-11.1)
[2021-11-06 02:16] LABS: BUN/Creatinine Ratio 39 (6-26); Blood Urea Nitrogen 42 mg/dL (8-23); Calcium 6.8 mg/dL (8.6-10.3); Carbon Dioxide 31 mEq/L (23-29); Chloride 102 mEq/L (98-107); Glucose 231 mg/dL (70-105); Osmolality,Calculated 302 (280-300); Potassium 4.6 mEq/L (3.5-5.1); Sodium 137 mEq/L (136-145); eGFR For African Americans > 60 (> 60); eGFR For Non-African Americans 51 (> 60)
[2021-11-06] MEDS: Ipratropium 1 PUFF INHALER IH SCH ×6 (04:32→23:37)
[2021-11-06] MEDS: Budesonide/Formoterol 160/4.5 1 PUFF INH IH SCH ×2 (07:24→20:21)
[2021-11-06] MEDS: Insulin LISPRO 300 UNITS/3 ML VIAL SUBQ SCH ×4 (08:50→20:03)
[2021-11-06] MEDS: amLODIPine 5 MG TABLET PO SCH (08:51)
[2021-11-06] MEDS: Aspirin 81 MG TAB.CHEW PO SCH (08:51)
[2021-11-06] MEDS: Lactobacillus 1 EACH CAP.SPRINK PO SCH (08:51)
[2021-11-06] MEDS: Gabapentin 300 MG CAPSULE PO SCH (08:51)
[2021-11-06] MEDS: carvediloL 6.25 MG TABLET PO SCH ×2 (08:51→16:31)
[2021-11-07 02:06] LABS: Basophils % 0.1 %; Eosinophils # 0.2 K/mcL (0.0-0.6); Eosinophils % 1.8 %; Hematocrit 27.8 % (35.3-44.9); Hemoglobin 8.3 g/dL (11.5-15.4); Immature Granulocytes % 0.5 % (0-4); Lymphocytes # 2.1 K/mcL (0.6-4.6); Lymphocytes % 24.2 %; Mean Corpuscular HGB Conc 29.9 g/dL (31.6-35.5); Mean Corpuscular Hemoglobin 27.4 pg (28.0-33.3); Mean Corpuscular Volume 91.7 fL (83.0-100.0); Mean Platelet Volume 9.2 fL (9.4-12.4); Monocytes # 0.7 K/mcL (0.0-1.3); Monocytes % 8.1 %; Neutrophils # 5.6 K/mcL (1.6-8.9); Platelet Count 196 K/mcL (140-400); Red Blood Count 3.03 M/mcL (3.82-4.97); Red Cell Distribution Width 18.4 % (11.5-14.5); Segmented Neutrophils % 65.3 %; White Blood Count 8.6 K/mcL (4.3-11.1)
[2021-11-07 02:25] LABS: BUN/Creatinine Ratio 37 (6-26); Blood Urea Nitrogen 38 mg/dL (8-23); Calcium 6.8 mg/dL (8.6-10.3); Carbon Dioxide 31 mEq/L (23-29); Chloride 103 mEq/L (98-107); Glucose 177 mg/dL (70-105); Osmolality,Calculated 301 (280-300); Potassium 4.3 mEq/L (3.5-5.1); Sodium 139 mEq/L (136-145); eGFR For African Americans > 60 (> 60); eGFR For Non-African Americans 55 (> 60)
[2021-11-07] MEDS: Ipratropium 1 PUFF INHALER IH SCH ×5 (03:49→20:16)
[2021-11-07] MEDS: Budesonide/Formoterol 160/4.5 1 PUFF INH IH SCH ×2 (07:35→20:16)
[2021-11-07] MEDS: Insulin LISPRO 300 UNITS/3 ML VIAL SUBQ SCH ×4 (09:34→19:27)
[2021-11-07] MEDS: Aspirin 81 MG TAB.CHEW PO SCH (09:34)
[2021-11-07] MEDS: Gabapentin 300 MG CAPSULE PO SCH (09:35)
[2021-11-07] MEDS: Lactobacillus 1 EACH CAP.SPRINK PO SCH (09:35)
[2021-11-07] MEDS: carvediloL 6.25 MG TABLET PO SCH ×2 (09:35→16:26)
[2021-11-07] MEDS: amLODIPine 5 MG TABLET PO SCH (09:35)
[2021-11-07] MEDS: Doxycycline 100 MG in 0.9 % Sodium Chloride Mini Bag 100 ML IVPB SCH (18:16)
[2021-11-07] MEDS: Melatonin 3 MG TABLET PO PRN (22:16)
[2021-11-08] MEDS: Ipratropium 1 PUFF INHALER IH SCH ×7 (00:13→23:33)
[2021-11-08] MEDS: Doxycycline 100 MG in 0.9 % Sodium Chloride Mini Bag 100 ML IVPB SCH ×2 (05:30→17:13)
[2021-11-08 05:43] LABS: Basophils % 0.1 %; Eosinophils # 0.2 K/mcL (0.0-0.6); Eosinophils % 2.2 %; Hematocrit 26.6 % (35.3-44.9); Hemoglobin 8.1 g/dL (11.5-15.4); Immature Granulocytes % 0.3 % (0-4); Lymphocytes # 1.5 K/mcL (0.6-4.6); Lymphocytes % 16.8 %; Mean Corpuscular HGB Conc 30.5 g/dL (31.6-35.5); Mean Corpuscular Hemoglobin 28.3 pg (28.0-33.3); Mean Platelet Volume 9.6 fL (9.4-12.4); Monocytes # 0.7 K/mcL (0.0-1.3); Monocytes % 7.9 %; Neutrophils # 6.3 K/mcL (1.6-8.9); Platelet Count 187 K/mcL (140-400); Red Blood Count 2.86 M/mcL (3.82-4.97); Red Cell Distribution Width 18.1 % (11.5-14.5); Segmented Neutrophils % 72.7 %; White Blood Count 8.6 K/mcL (4.3-11.1)
[2021-11-08 06:14] LABS: BUN/Creatinine Ratio 49 (6-26); Blood Urea Nitrogen 41 mg/dL (8-23); Calcium 6.9 mg/dL (8.6-10.3); Carbon Dioxide 31 mEq/L (23-29); Chloride 102 mEq/L (98-107); Glucose 162 mg/dL (70-105); Osmolality,Calculated 302 (280-300); Potassium 4.3 mEq/L (3.5-5.1); Sodium 139 mEq/L (136-145); eGFR For African Americans > 60 (> 60); eGFR For Non-African Americans > 60 (> 60)
[2021-11-08] MEDS: Budesonide/Formoterol 160/4.5 1 PUFF INH IH SCH ×2 (07:31→20:34)
[2021-11-08] MEDS: Insulin LISPRO 300 UNITS/3 ML VIAL SUBQ SCH ×4 (07:52→21:01)
[2021-11-08] MEDS: Lactobacillus 1 EACH CAP.SPRINK PO SCH (07:53)
[2021-11-08] MEDS: Vancomycin Oral Soln 125 MG/2.5 ML UDC PO SCH (07:53)
[2021-11-08] MEDS: Aspirin 81 MG TAB.CHEW PO SCH (07:54)
[2021-11-08] MEDS: amLODIPine 5 MG TABLET PO SCH (07:54)
[2021-11-08] MEDS: carvediloL 6.25 MG TABLET PO SCH ×2 (07:54→17:14)
[2021-11-08] MEDS: Gabapentin 300 MG CAPSULE PO SCH (07:54)
[2021-11-08] MEDS: Melatonin 3 MG TABLET PO PRN (23:21)
[2021-11-09] MEDS: Ipratropium 1 PUFF INHALER IH SCH ×6 (04:12→23:17)
[2021-11-09] MEDS: Doxycycline 100 MG in 0.9 % Sodium Chloride Mini Bag 100 ML IVPB SCH (06:16)
[2021-11-09] MEDS: carvediloL 6.25 MG TABLET PO SCH ×2 (07:24→18:20)
[2021-11-09] MEDS: amLODIPine 5 MG TABLET PO SCH (07:25)
[2021-11-09] MEDS: Lactobacillus 1 EACH CAP.SPRINK PO SCH (07:25)
[2021-11-09] MEDS: Gabapentin 300 MG CAPSULE PO SCH (07:25)
[2021-11-09] MEDS: Aspirin 81 MG TAB.CHEW PO SCH (07:25)
[2021-11-09] MEDS ORDERED: Furosemide 40 MG/4 ML VIAL ONE (07:27)
[2021-11-09] MEDS: Budesonide/Formoterol 160/4.5 1 PUFF INH IH SCH ×2 (07:44→19:27)
[2021-11-09] MEDS: Insulin LISPRO 300 UNITS/3 ML VIAL SUBQ SCH ×4 (07:47→21:49)
[2021-11-09] MEDS: Furosemide 40 MG TABLET PO SCH (10:47)
[2021-11-09] MEDS: Doxycycline 100 MG CAPSULE PO SCH (21:53)
[2021-11-09] MEDS ORDERED: Oxymetazoline Nasal SPRAY BOTTLE 15ML NS ONE (23:42)
[2021-11-10] MEDS ORDERED: Oxymetazoline Nasal SPRAY BOTTLE 15ML NS ONE (01:56)
[2021-11-10] MEDS: Desitin (Zinc Oxide) 56 GM TUBE TP PRN (02:16)
[2021-11-10] MEDS: Ipratropium 1 PUFF INHALER IH SCH ×6 (03:49→23:07)
[2021-11-10 05:35] LABS: Hematocrit 24.4 % (35.3-44.9); Hemoglobin 7.2 g/dL (11.5-15.4)
[2021-11-10] MEDS: Furosemide 40 MG TABLET PO SCH (07:36)
[2021-11-10] MEDS: Insulin LISPRO 300 UNITS/3 ML VIAL SUBQ SCH ×4 (07:36→19:58)
[2021-11-10] MEDS: Doxycycline 100 MG CAPSULE PO SCH ×2 (07:37→20:05)
[2021-11-10] MEDS: Gabapentin 300 MG CAPSULE PO SCH (07:37)
[2021-11-10] MEDS: Lactobacillus 1 EACH CAP.SPRINK PO SCH (07:37)
[2021-11-10] MEDS: amLODIPine 5 MG TABLET PO SCH (07:37)
[2021-11-10] MEDS: carvediloL 6.25 MG TABLET PO SCH ×2 (07:37→16:03)
[2021-11-10] MEDS: Saline Nasal Spray 44 ML BOTTLE NS SCH ×4 (07:38→20:05)
[2021-11-10] MEDS: Aspirin 81 MG TAB.CHEW PO SCH (07:38)
[2021-11-10] MEDS: Budesonide/Formoterol 160/4.5 1 PUFF INH IH SCH ×2 (07:58→19:26)
[2021-11-10 09:42] LABS: Hematocrit 23.8 % (35.3-44.9); Hemoglobin 7.1 g/dL (11.5-15.4)
[2021-11-11 03:03] LABS: Basophils % 0.2 %; Eosinophils # 0.2 K/mcL (0.0-0.6); Eosinophils % 2.2 %; Hematocrit 23.5 % (35.3-44.9); Immature Granulocytes % 0.4 % (0-4); Lymphocytes # 1.5 K/mcL (0.6-4.6); Lymphocytes % 15.7 %; Mean Corpuscular HGB Conc 29.8 g/dL (31.6-35.5); Mean Platelet Volume 9.8 fL (9.4-12.4); Monocytes # 0.6 K/mcL (0.0-1.3); Monocytes % 5.9 %; Neutrophils # 7.3 K/mcL (1.6-8.9); Platelet Count 180 K/mcL (140-400); Red Cell Distribution Width 18.6 % (11.5-14.5); Segmented Neutrophils % 75.6 %; White Blood Count 9.6 K/mcL (4.3-11.1)
[2021-11-11] MEDS: Ipratropium 1 PUFF INHALER IH SCH ×6 (03:18→23:43)
[2021-11-11 03:19] LABS: Calcium 7.2 mg/dL (8.6-10.3); Potassium 4.5 mEq/L (3.5-5.1)
[2021-11-11] MEDS: Budesonide/Formoterol 160/4.5 1 PUFF INH IH SCH ×2 (07:57→19:56)
[2021-11-11] MEDS: Insulin LISPRO 300 UNITS/3 ML VIAL SUBQ SCH ×4 (08:18→22:24)
[2021-11-11] MEDS: Doxycycline 100 MG CAPSULE PO SCH ×2 (08:20→22:22)
[2021-11-11] MEDS: carvediloL 6.25 MG TABLET PO SCH ×2 (08:20→16:10)
[2021-11-11] MEDS: Gabapentin 300 MG CAPSULE PO SCH (08:21)
[2021-11-11] MEDS: Lactobacillus 1 EACH CAP.SPRINK PO SCH (08:21)
[2021-11-11] MEDS: Vancomycin Oral Soln 125 MG/2.5 ML UDC PO SCH (08:21)
[2021-11-11] MEDS: amLODIPine 5 MG TABLET PO SCH (08:21)
[2021-11-11] MEDS: Aspirin 81 MG TAB.CHEW PO SCH (08:22)
[2021-11-11] MEDS: Saline Nasal Spray 44 ML BOTTLE NS SCH ×4 (08:22→22:22)
[2021-11-11] MEDS ORDERED: 0.9 % Sodium Chloride 1,000 ML IVC SCH (08:30)
[2021-11-11] MEDS: Furosemide 40 MG TABLET PO SCH (08:45)
[2021-11-11 10:55] LABS: Hematocrit 23.3 % (35.3-44.9); Hemoglobin 6.8 g/dL (11.5-15.4)
[2021-11-11] MEDS ORDERED: Furosemide 20 MG/2 ML VIAL IVP ONE ×2 (11:53→16:10)
[2021-11-11] MEDS ORDERED: 0.9 % Sodium Chloride 250 ML IVC SCH (12:00)
[2021-11-11] MEDS: Melatonin 3 MG TABLET PO PRN (22:35)
[2021-11-12 02:17] LABS: Basophils % 0.2 %; Eosinophils # 0.2 K/mcL (0.0-0.6); Eosinophils % 2.5 %; Hematocrit 24.8 % (35.3-44.9); Hemoglobin 7.4 g/dL (11.5-15.4); Immature Granulocytes % 0.7 % (0-4); Lymphocytes # 1.4 K/mcL (0.6-4.6); Mean Corpuscular HGB Conc 29.8 g/dL (31.6-35.5); Mean Corpuscular Hemoglobin 27.9 pg (28.0-33.3); Mean Corpuscular Volume 93.6 fL (83.0-100.0); Mean Platelet Volume 10.4 fL (9.4-12.4); Monocytes # 0.5 K/mcL (0.0-1.3); Monocytes % 5.9 %; Neutrophils # 6.7 K/mcL (1.6-8.9); Platelet Count 173 K/mcL (140-400); Red Blood Count 2.65 M/mcL (3.82-4.97); Red Cell Distribution Width 18.4 % (11.5-14.5); Segmented Neutrophils % 74.7 %; White Blood Count 8.9 K/mcL (4.3-11.1)
[2021-11-12 02:42] LABS: Calcium 7.4 mg/dL (8.6-10.3); Potassium 4.9 mEq/L (3.5-5.1)
[2021-11-12] MEDS: Ipratropium 1 PUFF INHALER IH SCH ×6 (03:54→23:28)
[2021-11-12] MEDS: Saline Nasal Spray 44 ML BOTTLE NS SCH ×4 (05:57→22:13)
[2021-11-12] MEDS: Budesonide/Formoterol 160/4.5 1 PUFF INH IH SCH ×2 (07:32→19:54)
[2021-11-12] MEDS: amLODIPine 5 MG TABLET PO SCH (09:18)
[2021-11-12] MEDS: Furosemide 40 MG TABLET PO SCH (09:18)
[2021-11-12] MEDS: carvediloL 6.25 MG TABLET PO SCH ×2 (09:19→17:05)
[2021-11-12] MEDS: Doxycycline 100 MG CAPSULE PO SCH ×2 (09:19→22:11)
[2021-11-12] MEDS: Gabapentin 300 MG CAPSULE PO SCH (09:19)
[2021-11-12] MEDS: Lactobacillus 1 EACH CAP.SPRINK PO SCH (09:19)
[2021-11-12] MEDS: Aspirin 81 MG TAB.CHEW PO SCH (09:19)
[2021-11-12] MEDS: Insulin LISPRO 300 UNITS/3 ML VIAL SUBQ SCH ×4 (09:20→22:13)
[2021-11-12] MEDS: Melatonin 3 MG TABLET PO PRN (22:11)
[2021-11-13 01:02] LABS: Hematocrit 23.9 % (35.3-44.9); Hemoglobin 7.2 g/dL (11.5-15.4); Immature Granulocytes % 0.6 % (0-4); Lymphocytes % 17.8 %; Mean Corpuscular HGB Conc 30.1 g/dL (31.6-35.5); Mean Corpuscular Hemoglobin 28.1 pg (28.0-33.3); Mean Corpuscular Volume 93.4 fL (83.0-100.0); Mean Platelet Volume 10.3 fL (9.4-12.4); Platelet Count 185 K/mcL (140-400); Red Blood Count 2.56 M/mcL (3.82-4.97); Red Cell Distribution Width 17.7 % (11.5-14.5); Segmented Neutrophils % 71.3 %; White Blood Count 6.5 K/mcL (4.3-11.1)
[2021-11-13 01:03] LABS: Basophils % 0.5 %; Eosinophils # 0.2 K/mcL (0.0-0.6); Eosinophils % 2.6 %; Lymphocytes # 1.2 K/mcL (0.6-4.6); Monocytes # 0.5 K/mcL (0.0-1.3); Monocytes % 7.2 %; Neutrophils # 4.6 K/mcL (1.6-8.9)
[2021-11-13 01:21] LABS: Calcium 7.5 mg/dL (8.6-10.3)
[2021-11-13] MEDS: Ipratropium 1 PUFF INHALER IH SCH ×6 (03:51→22:52)
[2021-11-13] MEDS: Insulin LISPRO 300 UNITS/3 ML VIAL SUBQ SCH ×4 (07:33→20:00)
[2021-11-13] MEDS: Saline Nasal Spray 44 ML BOTTLE NS SCH ×4 (07:33→19:31)
[2021-11-13] MEDS: Aspirin 81 MG TAB.CHEW PO SCH (07:33)
[2021-11-13] MEDS: Furosemide 40 MG TABLET PO SCH (07:34)
[2021-11-13] MEDS: Gabapentin 300 MG CAPSULE PO SCH (07:34)
[2021-11-13] MEDS: amLODIPine 5 MG TABLET PO SCH (07:34)
[2021-11-13] MEDS: Lactobacillus 1 EACH CAP.SPRINK PO SCH (07:34)
[2021-11-13] MEDS: Doxycycline 100 MG CAPSULE PO SCH ×2 (07:34→20:25)
[2021-11-13] MEDS: carvediloL 6.25 MG TABLET PO SCH ×2 (07:34→16:23)
[2021-11-13] MEDS: Budesonide/Formoterol 160/4.5 1 PUFF INH IH SCH ×2 (07:55→19:55)
[2021-11-13] MEDS ORDERED: 0.9 % Sodium Chloride 1,000 ML IVC SCH (08:00)
[2021-11-13] MEDS ORDERED: 0.9 % Sodium Chloride 1,000 ML ONE (08:31)
[2021-11-13 09:57] LABS: % Iron Saturation 7 % (15-50); Iron 17 mcg/dL (50-170); Transferrin 183 mg/dL (203-362)
[2021-11-13 10:14] LABS: Ferritin 174 ng/mL (10-120)
[2021-11-13 10:20] LABS: Folate 5.2 ng/mL (3.0-16.0)
[2021-11-13 17:14] LABS: Protein/Creatinine Ratio,Urine 1.54 mg/mg (0.00-0.20); Sodium, Urine 15.1 mEq/L
[2021-11-13] MEDS: Melatonin 3 MG TABLET PO PRN (20:25)
[2021-11-13] MEDS: Acetaminophen 325 MG TABLET PO PRN (20:25)
[2021-11-14 01:54] LABS: Basophils % 0.3 %; Eosinophils # 0.1 K/mcL (0.0-0.6); Eosinophils % 2.3 %; Hematocrit 24.4 % (35.3-44.9); Hemoglobin 7.3 g/dL (11.5-15.4); Immature Granulocytes % 0.8 % (0-4); Lymphocytes # 1.1 K/mcL (0.6-4.6); Lymphocytes % 17.8 %; Mean Corpuscular HGB Conc 29.9 g/dL (31.6-35.5); Mean Corpuscular Hemoglobin 28.1 pg (28.0-33.3); Mean Corpuscular Volume 93.8 fL (83.0-100.0); Mean Platelet Volume 9.9 fL (9.4-12.4); Monocytes # 0.6 K/mcL (0.0-1.3); Monocytes % 9.2 %; Nucleated Red Blood Cells 0.3 /100 WBC (0); Platelet Count 197 K/mcL (140-400); Red Cell Distribution Width 17.2 % (11.5-14.5); Segmented Neutrophils % 69.6 %
[2021-11-14 01:58] LABS: Neutrophils # 4.2 K/mcL (1.6-8.9)
[2021-11-14 03:21] LABS: Calcium 7.4 mg/dL (8.6-10.3); Magnesium 1.5 mg/dL (1.6-2.6); Potassium 5.2 mEq/L (3.5-5.1)
[2021-11-14] MEDS: Ipratropium 1 PUFF INHALER IH SCH ×6 (04:04→23:54)
[2021-11-14] MEDS: Saline Nasal Spray 44 ML BOTTLE NS SCH (05:26)
[2021-11-14] MEDS: Budesonide/Formoterol 160/4.5 1 PUFF INH IH SCH ×2 (07:20→20:29)
[2021-11-14] MEDS: Vancomycin Oral Soln 125 MG/2.5 ML UDC PO SCH (08:34)
[2021-11-14] MEDS: Insulin LISPRO 300 UNITS/3 ML VIAL SUBQ SCH ×4 (08:34→20:43)
[2021-11-14] MEDS: Aspirin 81 MG TAB.CHEW PO SCH (08:36)
[2021-11-14] MEDS: Lactobacillus 1 EACH CAP.SPRINK PO SCH (08:36)
[2021-11-14] MEDS: amLODIPine 5 MG TABLET PO SCH (08:36)
[2021-11-14] MEDS: carvediloL 6.25 MG TABLET PO SCH ×2 (08:36→17:00)
[2021-11-14] MEDS: Gabapentin 300 MG CAPSULE PO SCH (08:36)
[2021-11-14] MEDS: Doxycycline 100 MG CAPSULE PO SCH (08:37)
[2021-11-14] MEDS ORDERED: Saline Nasal Spray 44 ML BOTTLE NS PRN (09:36)
[2021-11-14 10:57] LABS: Calcium 7.7 mg/dL (8.6-10.3); Potassium 5.2 mEq/L (3.5-5.1)
[2021-11-14] MEDS: Ondansetron 4 MG/2 ML VIAL IVP PRN ×2 (12:57→20:00)
[2021-11-14] MEDS ORDERED: Furosemide 20 MG/2 ML VIAL IVP ONE (15:55)
[2021-11-14] MEDS: *HR* LORazepam 2 MG/ML VIAL IVP PRN (19:59)
[2021-11-14 20:40] LABS: ABG Base Excess -3 mEq/L (-2 to 3); ABG HCO3 29 mEq/L (21-27); ABG Oxygen Saturation 73 % (95-98); ABG PCO2 98 mmHg (35-45); ABG PH 7.08 pH Units (7.32-7.45); ABG PO2 55 mmHg (85-104); ABG TCO2 32 mEq/L (20-26)
[2021-11-14] MEDS ORDERED: 0.9 % Sodium Chloride 1,000 ML ONE (23:43)
[2021-11-14] MEDS ORDERED: 0.9 % Sodium Chloride 500 ML IVC PRN (23:45)
[2021-11-14] MEDS ORDERED: Calcium Gluconate 1gm/50mL 1 GM/50 ML BAG IVPB ONE (23:50)
[2021-11-14 23:54] LABS: ABG Base Excess -2 mEq/L (-2 to 3); ABG HCO3 28 mEq/L (21-27); ABG Oxygen Saturation 88 % (95-98); ABG PCO2 81 mmHg (35-45); ABG PH 7.15 pH Units (7.32-7.45); ABG PO2 72 mmHg (85-104); ABG TCO2 31 mEq/L (20-26); Blood Gas VT 450 cc
[2021-11-15] MEDS: Ipratropium 1 PUFF INHALER IH SCH ×5 (04:01→20:27)
[2021-11-15 04:04] LABS: ABG Base Excess -2 mEq/L (-2 to 3); ABG HCO3 28 mEq/L (21-27); ABG Oxygen Saturation 93 % (95-98); ABG PCO2 75 mmHg (35-45); ABG PH 7.17 pH Units (7.32-7.45); ABG PO2 87 mmHg (85-104); ABG TCO2 30 mEq/L (20-26); Blood Gas VT 500 cc
[2021-11-15] MEDS ORDERED: 0.9 % Sodium Chloride 250 ML IVC SCH (04:30)
[2021-11-15 04:59] LABS: Hemoglobin 7.9 g/dL (11.5-15.4); Mean Platelet Volume 10.2 fL (9.4-12.4)
[2021-11-15 05:01] LABS: Basophils % 0.3 %; Eosinophils % 0.1 %; Hematocrit 26.5 % (35.3-44.9); Immature Granulocytes % 0.7 % (0-4); Lymphocytes # 0.4 K/mcL (0.6-4.6); Lymphocytes % 5.6 %; Mean Corpuscular HGB Conc 29.8 g/dL (31.6-35.5); Mean Corpuscular Hemoglobin 28.6 pg (28.0-33.3); Monocytes # 0.7 K/mcL (0.0-1.3); Monocytes % 8.8 %; Neutrophils # 6.5 K/mcL (1.6-8.9); Platelet Count 208 K/mcL (140-400); Red Blood Count 2.76 M/mcL (3.82-4.97); Red Cell Distribution Width 17.2 % (11.5-14.5); Segmented Neutrophils % 84.5 %; White Blood Count 7.7 K/mcL (4.3-11.1)
[2021-11-15 05:14] LABS: Calcium 8.1 mg/dL (8.6-10.3); Potassium 5.5 mEq/L (3.5-5.1)
[2021-11-15 05:18] LABS: Hypochromasia Present (Not Present); Platelet Estimate Normal (Normal)
[2021-11-15] MEDS ORDERED: Perflutren Lipid Microsphere 1.3 ML in 0.9 % Sodium Chloride 8.7 ML IVP PRN ×2 (06:06→07:49)
[2021-11-15] MEDS ORDERED: Calcium Gluconate 1gm/50mL 1 GM/50 ML BAG IVPB ONE (06:11)
[2021-11-15] MEDS ORDERED: Albumin 25% 12.5gm/50mL 12.5 GM/50 ML IV.SOLN IVPB ONE (07:49)
[2021-11-15] MEDS: Budesonide/Formoterol 160/4.5 1 PUFF INH IH SCH ×2 (07:52→20:27)
[2021-11-15] MEDS: Aspirin 81 MG TAB.CHEW PO SCH (08:11)
[2021-11-15 08:14] LABS: ABG Base Excess -2 mEq/L (-2 to 3); ABG HCO3 27 mEq/L (21-27); ABG Oxygen Saturation 92 % (95-98); ABG PCO2 71 mmHg (35-45); ABG PH 7.19 pH Units (7.32-7.45); ABG PO2 83 mmHg (85-104); ABG TCO2 29 mEq/L (20-26); Blood Gas VT 500 cc
[2021-11-15] MEDS: Lactobacillus 1 EACH CAP.SPRINK PO SCH (08:22)
[2021-11-15] MEDS: Insulin LISPRO 300 UNITS/3 ML VIAL SUBQ SCH ×4 (08:26→20:27)
[2021-11-15] MEDS ORDERED: Gabapentin 100 MG CAPSULE PO SCH (09:00)
[2021-11-15] MEDS ORDERED: Furosemide 20 MG/2 ML VIAL IVP ONE (09:30)
[2021-11-15] MEDS ORDERED: 0.9 % Sodium Chloride 1,000 ML ONE (13:57)
[2021-11-15] MEDS: Albumin 25% 25gram/100mL 25 GM/100 ML IV.SOLN IVPB SCH (17:36)
[2021-11-15] MEDS: Bumetanide 1 MG/4 ML VIAL IVP SCH (17:58)
[2021-11-15] MEDS: Norepinephrine 4 MG/254 ML IV.SOLN IVC SCH (17:59)
[2021-11-15 18:24] LABS: Uric Acid 9.8 mg/dL (2.3-7.6)
[2021-11-15 18:25] LABS: Troponin I 0.03 ng/mL (< 0.04)
[2021-11-16] MEDS: Albumin 25% 25gram/100mL 25 GM/100 ML IV.SOLN IVPB SCH ×4 (00:02→23:26)
[2021-11-16] MEDS: Ipratropium 1 PUFF INHALER IH SCH ×7 (00:21→23:56)
[2021-11-16] MEDS: Norepinephrine 4 MG/254 ML IV.SOLN IVC SCH ×3 (02:54→16:58)
[2021-11-16 03:55] LABS: Basophils % 0.4 %; Eosinophils # 0.1 K/mcL (0.0-0.6); Eosinophils % 1.5 %; Hematocrit 22.3 % (35.3-44.9); Hemoglobin 6.7 g/dL (11.5-15.4); Immature Granulocytes % 0.7 % (0-4); Lymphocytes # 0.9 K/mcL (0.6-4.6); Lymphocytes % 20.2 %; Mean Corpuscular Hemoglobin 27.8 pg (28.0-33.3); Mean Corpuscular Volume 92.5 fL (83.0-100.0); Mean Platelet Volume 10.2 fL (9.4-12.4); Monocytes # 0.4 K/mcL (0.0-1.3); Monocytes % 7.7 %; Neutrophils # 3.2 K/mcL (1.6-8.9); Platelet Count 225 K/mcL (140-400); Red Blood Count 2.41 M/mcL (3.82-4.97); Red Cell Distribution Width 17.2 % (11.5-14.5); Segmented Neutrophils % 69.5 %; White Blood Count 4.6 K/mcL (4.3-11.1)
[2021-11-16 04:10] LABS: Calcium 7.9 mg/dL (8.6-10.3); Potassium 5.2 mEq/L (3.5-5.1)
[2021-11-16] MEDS ORDERED: 0.9 % Sodium Chloride 250 ML IVC SCH (04:45)
[2021-11-16] MEDS ORDERED: *HR* Metoprolol 5 MG/5 ML VIAL IVP ONE (04:45)
[2021-11-16] MEDS: Budesonide/Formoterol 160/4.5 1 PUFF INH IH SCH ×2 (07:08→20:38)
[2021-11-16] MEDS: Insulin LISPRO 300 UNITS/3 ML VIAL SUBQ SCH ×4 (08:12→20:07)
[2021-11-16 08:16] LABS: Bacteria,Urine Many per hpf (None-Few); Bilirubin,Urine Negative (Negative); Blood,Urine Small (Negative); Clarity,Urine Ex.Turbid (Clear); Color,Urine Yellow (Yellow); Glucose,Urine (UA) Normal (Normal); Hyaline Casts,Urine Many per lpf (None Seen); Ketones,Urine Negative (Negative); Leukocyte Esterase,Urine Large (Negative); Nitrite,Urine Negative (Negative); Protein,Urine 100 mg/dL (Neg-Trace); RBC,Urine 15-30 per hpf (0-3); Specific Gravity,Urine 1.011 (1.010-1.025); Urobilinogen,Urine Normal (Normal); WBC,Urine TNTC per hpf (0-3)
[2021-11-16 08:49] LABS: Sodium, Urine 49.4 mEq/L
[2021-11-16] MEDS: Bumetanide 1 MG/4 ML VIAL IVP SCH ×2 (09:33→16:57)
[2021-11-16] MEDS: Lactobacillus 1 EACH CAP.SPRINK PO SCH (09:33)
[2021-11-16] MEDS: Aspirin 81 MG TAB.CHEW PO SCH (09:33)
[2021-11-16 14:14] LABS: Hemoglobin 8.4 g/dL (11.5-15.4)
[2021-11-16 14:22] LABS: BUN/Creatinine Ratio 41 (6-26); Blood Urea Nitrogen 91 mg/dL (8-23); Calcium 8.1 mg/dL (8.6-10.3); Carbon Dioxide 24 mEq/L (23-29); Chloride 102 mEq/L (98-107); Glucose 97 mg/dL (70-105); Osmolality,Calculated 310 (280-300); Sodium 136 mEq/L (136-145); eGFR For African Americans 27 (> 60); eGFR For Non-African Americans 23 (> 60)
[2021-11-16] MEDS: Ondansetron 4 MG/2 ML VIAL IVP PRN (15:43)
[2021-11-16] MEDS: Desitin (Zinc Oxide) 56 GM TUBE TP PRN ×2 (16:34→23:24)
[2021-11-16] MEDS: *HR* Heparin 5,000 UNIT/ML VIAL SQ SCH ×2 (16:57→17:06)
[2021-11-16 17:25] LABS: Total Protein,Pleural Fluid 2.3 g/dL
[2021-11-16 17:25] LABS: Total Protein,Pleural Fluid 2.2 g/dL
[2021-11-16 17:26] LABS: RBC,Pleural Fluid 12000 RBC/mcL
[2021-11-16 17:26] LABS: ABG Base Excess -2 mEq/L (-2 to 3); ABG HCO3 26 mEq/L (21-27); ABG Oxygen Saturation 88 % (95-98); ABG PCO2 65 mmHg (35-45); ABG PH 7.22 pH Units (7.32-7.45); ABG PO2 67 mmHg (85-104); ABG TCO2 28 mEq/L (20-26)
[2021-11-16 17:29] LABS: Appearance of Pleural Fl Cloudy (Clear)
[2021-11-16 17:33] LABS: RBC,Pleural Fluid 32000 RBC/mcL
[2021-11-16 17:34] LABS: Appearance of Pleural Fl Bloody (Clear)
[2021-11-17] MEDS: Norepinephrine 4 MG/254 ML IV.SOLN IVC SCH ×3 (03:19→20:56)
[2021-11-17 03:50] LABS: Basophils % 0.5 %; Eosinophils # 0.1 K/mcL (0.0-0.6); Eosinophils % 2.1 %; Hematocrit 24.6 % (35.3-44.9); Hemoglobin 7.4 g/dL (11.5-15.4); Immature Granulocytes % 0.7 % (0-4); Lymphocytes # 1.1 K/mcL (0.6-4.6); Mean Corpuscular HGB Conc 30.1 g/dL (31.6-35.5); Mean Corpuscular Hemoglobin 27.7 pg (28.0-33.3); Mean Corpuscular Volume 92.1 fL (83.0-100.0); Mean Platelet Volume 9.6 fL (9.4-12.4); Monocytes # 0.4 K/mcL (0.0-1.3); Monocytes % 8.4 %; Neutrophils # 2.8 K/mcL (1.6-8.9); Platelet Count 222 K/mcL (140-400); Red Blood Count 2.67 M/mcL (3.82-4.97); Red Cell Distribution Width 17.2 % (11.5-14.5); Segmented Neutrophils % 64.3 %; White Blood Count 4.4 K/mcL (4.3-11.1)
[2021-11-17] MEDS: Ipratropium 1 PUFF INHALER IH SCH ×6 (04:14→23:12)
[2021-11-17] MEDS: *HR* Heparin 5,000 UNIT/ML VIAL SQ SCH ×2 (05:53→17:00)
[2021-11-17] MEDS: Budesonide/Formoterol 160/4.5 1 PUFF INH IH SCH ×2 (08:07→20:10)
[2021-11-17] MEDS: Albumin 25% 25gram/100mL 25 GM/100 ML IV.SOLN IVPB SCH (08:24)
[2021-11-17] MEDS: Lactobacillus 1 EACH CAP.SPRINK PO SCH (08:24)
[2021-11-17] MEDS: Aspirin 81 MG TAB.CHEW PO SCH (08:24)
[2021-11-17] MEDS: Insulin LISPRO 300 UNITS/3 ML VIAL SUBQ SCH ×4 (08:41→20:56)
[2021-11-17] MEDS: Bumetanide 1 MG/4 ML VIAL IVP SCH ×3 (09:16→16:59)
[2021-11-17] MEDS: Desitin (Zinc Oxide) 56 GM TUBE TP PRN (11:00)
[2021-11-17 12:47] LABS: Hematocrit 27.5 % (35.3-44.9); Hemoglobin 8.1 g/dL (11.5-15.4)
[2021-11-17] MEDS: Nystatin POWDER 30 GM BOTTLE TP SCH ×2 (13:16→20:57)
[2021-11-18] MEDS: Norepinephrine 4 MG/254 ML IV.SOLN IVC SCH ×3 (03:23→19:51)
[2021-11-18 04:01] LABS: Basophils % 0.6 %; Eosinophils # 0.1 K/mcL (0.0-0.6); Eosinophils % 2.7 %; Hemoglobin 8.4 g/dL (11.5-15.4); Immature Granulocytes % 0.8 % (0-4); Lymphocytes # 1.1 K/mcL (0.6-4.6); Lymphocytes % 22.5 %; Mean Corpuscular Hemoglobin 28.6 pg (28.0-33.3); Mean Corpuscular Volume 95.2 fL (83.0-100.0); Mean Platelet Volume 9.7 fL (9.4-12.4); Monocytes # 0.3 K/mcL (0.0-1.3); Monocytes % 6.7 %; Neutrophils # 3.2 K/mcL (1.6-8.9); Platelet Count 234 K/mcL (140-400); Red Blood Count 2.94 M/mcL (3.82-4.97); Red Cell Distribution Width 16.9 % (11.5-14.5); Segmented Neutrophils % 66.7 %; White Blood Count 4.8 K/mcL (4.3-11.1)
[2021-11-18 04:07] LABS: VBG Ionized Calcium 1.11 mmol/L (1.15-1.35)
[2021-11-18 04:17] LABS: Calcium 8.3 mg/dL (8.6-10.3); Phosphorous 6.2 mg/dL (2.7-4.5); Potassium 5.3 mEq/L (3.5-5.1)
[2021-11-18] MEDS: Ipratropium 1 PUFF INHALER IH SCH ×6 (04:46→23:27)
[2021-11-18] MEDS: *HR* Heparin 5,000 UNIT/ML VIAL SQ SCH (05:30)
[2021-11-18] MEDS: Budesonide/Formoterol 160/4.5 1 PUFF INH IH SCH ×2 (07:50→19:42)
[2021-11-18] MEDS: Lactobacillus 1 EACH CAP.SPRINK PO SCH ×2 (08:43→09:04)
[2021-11-18] MEDS: Bumetanide 1 MG/4 ML VIAL IVP SCH ×2 (08:43→16:29)
[2021-11-18] MEDS: Aspirin 81 MG TAB.CHEW PO SCH (08:43)
[2021-11-18] MEDS: Nystatin POWDER 30 GM BOTTLE TP SCH ×2 (08:44→20:11)
[2021-11-18] MEDS: Insulin LISPRO 300 UNITS/3 ML VIAL SUBQ SCH ×4 (09:04→20:09)
[2021-11-18] MEDS ORDERED: *HR* Heparin 5,000 UNIT/ML VIAL IVP PRN ×2 (11:34)
[2021-11-18] MEDS ORDERED: levoFLOXacin 750 MG/150 ML 750 MG/150 ML BAG IVPB SCH (11:45)
[2021-11-18 11:52] LABS: Heparin anti-factor XA UFH < 0.04 IU/mL (0.30-0.70)
[2021-11-18 11:53] LABS: INR 1.1; Prothrombin Time 12.1 Seconds (9.4-12.1)
[2021-11-18] MEDS: *HR* Metoprolol 5 MG/5 ML VIAL IVP SCH ×2 (12:01→18:04)
[2021-11-18] MEDS: Heparin 25,000UNIT/250ML 1/2NS 25,000 UNIT/250 ML IV.SOLN IVC SCH (12:17)
[2021-11-18 13:43] LABS: Hemoglobin 8.7 g/dL (11.5-15.4); Mean Corpuscular Hemoglobin 27.7 pg (28.0-33.3); Mean Corpuscular Volume 95.5 fL (83.0-100.0); Mean Platelet Volume 9.8 fL (9.4-12.4); Platelet Count 238 K/mcL (140-400); Red Blood Count 3.14 M/mcL (3.82-4.97); Red Cell Distribution Width 16.8 % (11.5-14.5)
[2021-11-18] MEDS ORDERED: Ipratropium/Albuterol Neb 3 ML IH PRN (14:34)
[2021-11-18] MEDS: Desitin (Zinc Oxide) 56 GM TUBE TP PRN (20:12)
[2021-11-18] MEDS ORDERED: QUEtiapine Fumarate 25 MG TABLET PO SCH (21:00)
[2021-11-19] MEDS: *HR* Metoprolol 5 MG/5 ML VIAL IVP SCH ×4 (00:40→17:35)
[2021-11-19] MEDS: Norepinephrine 4 MG/254 ML IV.SOLN IVC SCH ×3 (03:25→13:25)
[2021-11-19] MEDS: Heparin 25,000UNIT/250ML 1/2NS 25,000 UNIT/250 ML IV.SOLN IVC SCH ×2 (03:25→16:41)
[2021-11-19] MEDS: Ipratropium 1 PUFF INHALER IH SCH ×6 (03:28→23:23)
[2021-11-19 03:34] LABS: Basophils % 0.8 %; Eosinophils # 0.2 K/mcL (0.0-0.6); Eosinophils % 4.2 %; Hematocrit 26.9 % (35.3-44.9); Hemoglobin 8.5 g/dL (11.5-15.4); Immature Granulocytes % 0.8 % (0-4); Lymphocytes # 0.9 K/mcL (0.6-4.6); Lymphocytes % 25.3 %; Mean Corpuscular HGB Conc 31.6 g/dL (31.6-35.5); Mean Corpuscular Hemoglobin 29.3 pg (28.0-33.3); Mean Corpuscular Volume 92.8 fL (83.0-100.0); Mean Platelet Volume 9.6 fL (9.4-12.4); Monocytes # 0.3 K/mcL (0.0-1.3); Monocytes % 8.9 %; Neutrophils # 2.2 K/mcL (1.6-8.9); Platelet Count 241 K/mcL (140-400); Red Cell Distribution Width 16.5 % (11.5-14.5); White Blood Count 3.6 K/mcL (4.3-11.1)
[2021-11-19 03:38] LABS: VBG Ionized Calcium 1.13 mmol/L (1.15-1.35)
[2021-11-19 03:55] LABS: Phosphorous 5.3 mg/dL (2.7-4.5)
[2021-11-19] MEDS: Budesonide/Formoterol 160/4.5 1 PUFF INH IH SCH ×2 (07:19→19:27)
[2021-11-19] MEDS: Insulin LISPRO 300 UNITS/3 ML VIAL SUBQ SCH ×4 (07:35→20:15)
[2021-11-19] MEDS: Bumetanide 1 MG/4 ML VIAL IVP SCH ×2 (07:41→16:48)
[2021-11-19] MEDS: Pantoprazole 40 MG VIAL IVP SCH (07:41)
[2021-11-19] MEDS: Lactobacillus 1 EACH CAP.SPRINK PO SCH (07:43)
[2021-11-19] MEDS: Aspirin 81 MG TAB.CHEW PO SCH (07:43)
[2021-11-19] MEDS: Nystatin POWDER 30 GM BOTTLE TP SCH ×2 (08:01→20:15)
[2021-11-19 08:11] LABS: Calcium 7.7 mg/dL (8.6-10.3); Potassium 4.9 mEq/L (3.5-5.1)
[2021-11-19] MEDS ORDERED: *HR* Atropine Sulfate 1 MG/10 ML SYRINGE IVP STA (13:10)
[2021-11-19] MEDS ORDERED: *HR* Atropine Sulfate 1 MG/10 ML SYRINGE ONE (13:16)
[2021-11-19] MEDS ORDERED: Norepinephrine 4 MG/254 ML IV.SOLN IVC ONE (13:23)
[2021-11-19] MEDS ORDERED: Fosfomycin Tromethamine 3 GM Packet PO ONE (13:30)
[2021-11-19 15:29] LABS: Kappa Qnt Free Light Chains 66.16 mg/L (3.30-19.40); Lambda Qnt Free Light Chains 41.13 mg/L (5.71-26.30)
[2021-11-19 15:56] LABS: Cystatin C 3.5 mg/L (0.5-1.2)
[2021-11-19 17:06] LABS: Bacteria,Urine Few per hpf (None-Few); Bilirubin,Urine Negative (Negative); Blood,Urine Moderate (Negative); Clarity,Urine Clear (Clear); Color,Urine Light-Yellow (Yellow); Glucose,Urine (UA) Normal (Normal); Ketones,Urine Negative (Negative); Leukocyte Esterase,Urine Moderate (Negative); Mucus,Urine Few per lpf (None-Few); Nitrite,Urine Negative (Negative); Protein,Urine 200 mg/dL (Neg-Trace); Specific Gravity,Urine 1.014 (1.010-1.025); Squamous Epithelial Cell,Urine Few per hpf (None-Few); Urobilinogen,Urine Normal (Normal)
[2021-11-20] MEDS: *HR* Metoprolol 5 MG/5 ML VIAL IVP SCH ×5 (01:06→17:30)
[2021-11-20] MEDS: Aquaphor/Maalox 50 GM BOTTLE TP PRN ×3 (02:30→07:31)
[2021-11-20] MEDS: Ipratropium 1 PUFF INHALER IH SCH ×5 (04:11→20:34)
[2021-11-20 04:15] LABS: Basophils % 0.6 %; Eosinophils # 0.1 K/mcL (0.0-0.6); Eosinophils % 2.2 %; Hematocrit 26.7 % (35.3-44.9); Immature Granulocytes % 0.6 % (0-4); Lymphocytes # 0.7 K/mcL (0.6-4.6); Lymphocytes % 22.8 %; Mean Corpuscular Hemoglobin 28.2 pg (28.0-33.3); Mean Platelet Volume 9.8 fL (9.4-12.4); Monocytes # 0.3 K/mcL (0.0-1.3); Monocytes % 9.8 %; Nucleated Red Blood Cells 0.6 /100 WBC (0); Platelet Count 226 K/mcL (140-400); Red Blood Count 2.84 M/mcL (3.82-4.97); Red Cell Distribution Width 16.4 % (11.5-14.5); White Blood Count 3.2 K/mcL (4.3-11.1)
[2021-11-20 04:20] LABS: VBG Ionized Calcium 1.03 mmol/L (1.15-1.35)
[2021-11-20 04:35] LABS: Calcium 7.9 mg/dL (8.6-10.3); Phosphorous 4.7 mg/dL (2.7-4.5); Potassium 4.8 mEq/L (3.5-5.1)
[2021-11-20] MEDS: Norepinephrine 4 MG/254 ML IV.SOLN IVC SCH (05:07)
[2021-11-20] MEDS: Calcium Gluconate 1gm/50mL 1 GM/50 ML BAG IVPB SCH ×2 (05:40→06:11)
[2021-11-20] MEDS: Heparin 25,000UNIT/250ML 1/2NS 25,000 UNIT/250 ML IV.SOLN IVC SCH ×2 (07:09→11:16)
[2021-11-20] MEDS: Bumetanide 1 MG/4 ML VIAL IVP SCH ×2 (07:28→18:02)
[2021-11-20] MEDS: Pantoprazole 40 MG VIAL IVP SCH ×2 (07:28→07:29)
[2021-11-20] MEDS: Aspirin 81 MG TAB.CHEW PO SCH (07:29)
[2021-11-20] MEDS: Lactobacillus 1 EACH CAP.SPRINK PO SCH (07:29)
[2021-11-20] MEDS: Insulin LISPRO 300 UNITS/3 ML VIAL SUBQ SCH ×3 (07:30→18:07)
[2021-11-20] MEDS: Nystatin POWDER 30 GM BOTTLE TP SCH ×2 (07:31→22:25)
[2021-11-20] MEDS: Budesonide/Formoterol 160/4.5 1 PUFF INH IH SCH ×3 (07:37→20:33)
[2021-11-20 08:36] LABS: Alpha 2 Globulin (PEP) 0.79 g/dL (0.48-1.05); Beta Globulin (PEP) 0.52 g/dL (0.48-1.10)
[2021-11-20] MEDS ORDERED: levoFLOXacin 750 MG/150 ML 750 MG/150 ML BAG IVPB SCH (09:00)
[2021-11-20] MEDS ORDERED: Desitin (Zinc Oxide) 56 GM TUBE TP PRN (09:09)
[2021-11-20] MEDS ORDERED: Saline Nasal Spray 44 ML BOTTLE NS PRN (09:09)
[2021-11-20] MEDS ORDERED: Melatonin 3 MG TABLET PO PRN (09:09)
[2021-11-20] MEDS ORDERED: Dextrose 4 GM Chewable Tablets PO PRN (09:09)
[2021-11-20] MEDS ORDERED: Dextrose Gel 15 GM/37.5 ML TUBE PO PRN (09:09)
[2021-11-20] MEDS ORDERED: Ondansetron 4 MG/2 ML VIAL IVP PRN (09:09)
[2021-11-20] MEDS ORDERED: Perflutren Lipid Microsphere 1.3 ML in 0.9 % Sodium Chloride 8.7 ML IVP PRN (09:09)
[2021-11-20] MEDS ORDERED: Acetaminophen 325 MG TABLET PO PRN (09:09)
[2021-11-20] MEDS ORDERED: Naloxone 0.4 MG/ML INJ IVP PRN (09:09)
[2021-11-20] MEDS ORDERED: *HR* Heparin 5,000 UNIT/ML VIAL IVP PRN ×2 (09:09)
[2021-11-20] MEDS ORDERED: 0.9 % Sodium Chloride 500 ML IVC PRN (09:09)
[2021-11-20] MEDS ORDERED: Aquaphor/Maalox 50 GM BOTTLE TP PRN (09:09)
[2021-11-20] MEDS ORDERED: D5% in Water 1,000 ML IVC PRN (09:09)
[2021-11-20] MEDS ORDERED: 0.9 % Sodium Chloride 250 ML IVC SCH ×2 (09:09)
[2021-11-20] MEDS ORDERED: *HR* Dextrose 50 % in Water (Syg) 50 ML SYRINGE IVP PRN (09:09)
[2021-11-20] MEDS ORDERED: Ipratropium/Albuterol Neb 3 ML IH PRN (09:09)
[2021-11-20 10:48] LABS: IFE Reflexed NOT DONE
[2021-11-20] MEDS ORDERED: *HR* LORazepam 2 MG/ML VIAL IVP PRN (10:49)
[2021-11-20] MEDS ORDERED: *HR* OxyCODONE Immed Rel 5 MG TABLET PO PRN (10:49)
[2021-11-20 11:56] LABS: VBG Ionized Calcium 1.19 mmol/L (1.15-1.35)
[2021-11-20] MEDS ORDERED: Insulin LISPRO 300 UNITS/3 ML VIAL SUBQ SCH (21:00)
[2021-11-21] MEDS: Heparin 25,000UNIT/250ML 1/2NS 25,000 UNIT/250 ML IV.SOLN IVC SCH (00:09)
[2021-11-21] MEDS: Ipratropium 1 PUFF INHALER IH SCH ×3 (00:27→08:04)
[2021-11-21] MEDS: *HR* Metoprolol 5 MG/5 ML VIAL IVP SCH ×2 (00:38→05:25)
[2021-11-21 02:26] LABS: Hematocrit 29.1 % (35.3-44.9); Hemoglobin 8.5 g/dL (11.5-15.4); Mean Corpuscular HGB Conc 29.2 g/dL (31.6-35.5); Mean Corpuscular Hemoglobin 28.4 pg (28.0-33.3); Mean Corpuscular Volume 97.3 fL (83.0-100.0); Platelet Count 221 K/mcL (140-400); Red Blood Count 2.99 M/mcL (3.82-4.97); Red Cell Distribution Width 16.9 % (11.5-14.5); White Blood Count 4.9 K/mcL (4.3-11.1)
[2021-11-21 02:29] LABS: Calcium 8.4 mg/dL (8.6-10.3); Potassium 5.2 mEq/L (3.5-5.1)
[2021-11-21 07:40] VITALS: TEMP 97.2
[2021-11-21] MEDS: Budesonide/Formoterol 160/4.5 1 PUFF INH IH SCH (08:04)
[2021-11-21] MEDS: Insulin LISPRO 300 UNITS/3 ML VIAL SUBQ SCH (08:04)
[2021-11-21] MEDS: Bumetanide 1 MG/4 ML VIAL IVP SCH (08:07)
[2021-11-21] MEDS: Nystatin POWDER 30 GM BOTTLE TP SCH (08:10)
[2021-11-21 08:36] VITALS: O2SAT 92
[2021-11-21 08:52] VITALS: BP 112/47; PULSE 78
[2021-11-21] MEDS ORDERED: Aspirin 81 MG TAB.CHEW PO SCH (09:00)
[2021-11-21] MEDS ORDERED: Lactobacillus 1 EACH CAP.SPRINK PO SCH (09:00)
[2021-11-21] MEDS ORDERED: Pantoprazole 40 MG VIAL IVP SCH (09:00)
== END 2021-11-21 09:35 | disposition expired | DRG 871 ==
LOC: 2NENU → SUATTDRO 18:47 → ICNU 11-15 11:31 → 2NNU 11-20 17:19
PROVIDERS: ADMIT Internal Medicine; ATTEND Student in an Organized Health Care Education/Training Program